=== PATIENT | male | born 1990 | race Caucasian/White ===

== ENCOUNTER → 2016-06-15 | Outpatient (REF) | payer OTHER, MEDICAID | LOC: M SFHCLERA 16:32 | PROVIDERS: ATTEND Nurse Practitioner Family | DX: R50.9 Fever, unspecified (principal) ==

== ENCOUNTER 2017-07-24 09:45 | Outpatient (RCR) | payer OTHER | END 2017-08-22 | LOC: M PT 09:45 | DX: Z51.89 Encounter for other specified aftercare (principal); M54.2 Cervicalgia ==

== ENCOUNTER 2017-08-26 08:26 | Outpatient (RCR) | payer OTHER | END 2017-09-21 | LOC: M PT 08:26 | DX: Z51.89 Encounter for other specified aftercare (principal); M54.2 Cervicalgia ==

== ENCOUNTER 2018-01-23 10:05 | Emergency (ER) | payer OTHER, MEDICAID ==
[2018-01-23] MEDS: KETOROLAC TROMETHAMINE 10 MG TAB PO (10:46)
[2018-01-23] MEDS: methylPREDNISolone INJ 125 MG/2 ML VIAL (J2930) IM (10:46)
[2018-01-23] MEDS: MORPHINE 4 MG/ML 1ML VIAL/SYRINGE (J2270) IM (10:47)
== END 2018-01-23 11:20 | disposition home or self-care (01) ==
LOC: M ED 10:05
DX: M54.5 Low back pain (principal)
CPT/HCPCS: J2270

== ENCOUNTER → 2018-07-17 | Outpatient (REF) | payer OTHER, MEDICAID ==
[~2018-07-17] MED LIST: DICL75TA; METH4PACK; PRED20TA PO; TIZA4CAP6; TOPI50TA9; VOLT1GEL15 TOP
[2018-07-17 20:02] LABS: ALBUMIN 3.7 GM/DL (3.2-5.2); ALT/SGPT 92 U/L (12-78); BILIRUBIN,TOTAL 0.4 MG/DL (0.2-1.0); BLOOD UREA NITROGEN 16 MG/DL (7-18); CALCIUM LEVEL 8.9 MG/DL (8.5-10.1); CARBON DIOXIDE LEVEL 27 MEQ/L (21-32); CHLORIDE LEVEL 111 MEQ/L (98-107); CHOLESTEROL LEVEL 192 MG/DL (<200); CHOLESTEROL RISK RATIO 5.189 (<5); CREATININE FOR GFR 0.95 MG/DL (0.70-1.30); GLOMERULAR FILTRATION RATE > 60.0 (>60); GLUCOSE, FASTING 87 MG/DL (70-100); HDL CHOLESTEROL 37 MG/DL (>40); NON-HDL-C 155 MG/DL; POTASSIUM SERUM 3.8 MEQ/L (3.5-5.1); SODIUM LEVEL 142 MEQ/L (136-145); THYROID STIMULATING HORMONE 0.019 uIU/ML (0.358-3.740); TOTAL PROTEIN 7.7 GM/DL (6.4-8.2); TRIGLYCERIDES LEVEL 125 MG/DL (<150)
[2018-07-17 20:17] LABS: HEMATOCRIT 46.1 % (42.0-52.0); HEMOGLOBIN 15.4 g/dl (13.5-17.5); MEAN CORPUSCULAR HGB CONC 33.4 g/dl (32.0-36.5); MEAN CORPUSCULAR VOLUME 92.9 fl (80.0-96.0); PLATELET COUNT, AUTOMATED 266 10^3/uL (150-450); RED BLOOD COUNT 4.96 10^6/uL (4.30-6.10); WHITE BLOOD COUNT 9.5 10^3/uL (4.0-10.0)
== END ==
LOC: M SFHCLERA 11:21
PROVIDERS: ATTEND Family Medicine
DX: I10 Essential (primary) hypertension (principal)

== ENCOUNTER → 2018-07-21 | Outpatient (REF) | payer OTHER, MEDICAID ==
[2018-07-21 18:03] LABS: ALBUMIN 3.7 GM/DL (3.2-5.2); ALT/SGPT 101 U/L (12-78); BILIRUBIN,DIRECT 0.2 MG/DL (0.0-0.2); BILIRUBIN,TOTAL 0.7 MG/DL (0.2-1.0); FERRITIN 316 NG/ML (26-388); FREE T4 1.27 NG/DL (0.76-1.46); THYROID STIMULATING HORMONE 0.011 uIU/ML (0.358-3.740); TOTAL PROTEIN 7.7 GM/DL (6.4-8.2)
[2018-07-23 11:45] LABS: HEPATITIS B CORE ANTIBODY IGM NEGATIVE (NEGATIVE)
[2018-07-23 11:48] LABS: HEPATITIS A ANTIBODY IGM NEGATIVE (NEGATIVE)
[2018-07-23 13:20] LABS: HEPATITIS B SURFACE ANTIGEN NEGATIVE (NEGATIVE)
== END ==
LOC: M SFHCLERA 11:30
PROVIDERS: ATTEND Family Medicine
DX: R79.89 Other specified abnormal findings of blood chemistry (principal); R74.8 Abnormal levels of other serum enzymes

== ENCOUNTER → 2018-07-28 | Outpatient (CLI) | payer OTHER ==
--- NOTE | 2018-07-28 08:10 | REP ---
Nickel: Elevated liver function tests. Technique: Real time albert scale ultrasound examination using curved array transducer. Findings: Liver is increased echogenicity with poor through transmission suggesting fatty infiltration/hepatocellular disease. No obvious focal hepatic lesion identified. The pancreas is incompletely evaluated due to interposed bowel gas, but visualized portions appear relatively normal. The gallbladder is unremarkable and without gallstones, wall thickening, or pericholecystic fluid. No biliary ductal dilatation is appreciated and the common bile duct measures 3.5 mm diameter. The right kidney is normal in reniform shape without hydronephrosis and measures 12.5 x 5.5 x 6.3 cm. Visualized abdominal aorta normal. No ascites. Impression: Hepatic steatosis. No focal hepatic lesions identified. Electronically Signed by Domo Cifuentes MD 07/28/2018 08:02 A
== END ==
LOC: M RAD 06:57
PROVIDERS: ATTEND Family Medicine
DX: R94.5 Abnormal results of liver function studies (principal); K76.0 Fatty (change of) liver, not elsewhere classified

== ENCOUNTER → 2018-11-25 | Outpatient (REF) | payer OTHER, MEDICAID ==
[2018-11-25 12:39] LABS: ALBUMIN 3.4 GM/DL (3.2-5.2); ALT/SGPT 84 U/L (12-78); BILIRUBIN,DIRECT < 0.1 MG/DL (0.0-0.2); BILIRUBIN,TOTAL 0.3 MG/DL (0.2-1.0); FERRITIN 287 NG/ML (26-388); IRON (FE) 78 UG/DL (65-175); PERCENT SATURATION 30.5 % (19.7-50.0); TOTAL IRON BINDING CAPACITY 256 UG/DL (250-450); TOTAL PROTEIN 7.1 GM/DL (6.4-8.2)
== END ==
LOC: M SFHCLERA 08:02
PROVIDERS: ATTEND Family Medicine
DX: R74.0 Nonspecific elevation of levels of transaminase and lactic acid dehydrogenase [LDH] (principal)

== ENCOUNTER → 2019-01-29 | Outpatient (CLI) | payer OTHER, MEDICAID ==
[2019-01-29 21:03] LABS: C REACTIVE PROTEIN QUANTITATIV 1.76 MG/DL (0.00-0.30); RHEUMATOID FACTOR QUANT < 10.0 IU/ML (<15.0); URIC ACID 6.1 MG/DL (3.5-7.2)
== END ==
LOC: M LRY 15:59
PROVIDERS: ATTEND Physician Assistant
DX: M54.5 Low back pain (principal)

== ENCOUNTER → 2019-02-16 | Outpatient (CLI) | payer OTHER ==
--- NOTE | 2019-02-16 17:23 | REP ---
Lumbar spine MRI study without contrast: History: Lower back and left leg pain. Comparison MRI study September 03, 2014. Technique: Sagittal and axial T1 and T2-weighted scans are acquired in the usual fashion with and without fat saturation. Sequences include spin echo, turbo spin-echo, and STIR imaging sequences. MRI findings: There is some straightening of the normal lumbar lordosis. Cortical and medullary bone signal intensity are normal. Vertebral body heights are preserved. Alignment is normal. There is no evidence of spondylolysis or spondylolisthesis. The tip of the conus medullaris is normal in position and appearance at L1-L2. No extra vertebral abnormality is observed. At L5-S1, there is mild diffuse disc bulging. No foraminal narrowing or central canal stenosis is seen. There is mild facet hypertrophy. These findings are unchanged. At L4-L5, there is degenerative narrowing of the disc. There is a small central focal disc protrusion at L4-5 which is much improved from the appearance of the comparison study at L4-5 on September 03, 2014. There is subtle indentation of the ventral margin of the thecal sac. The previously noted moderate sized disc protrusion is otherwise resolved. There is mild facet hypertrophy at L4-5. No foraminal stenosis is seen. At L3-4, there is degenerative disc narrowing and desiccation which is a new finding from the prior study. There is a small right paracentral focal disc protrusion at L3-4 which is new compared to the prior exam. There is mild thecal sac compression associated with this. No foraminal encroachment is seen. At L2-3 and L1-2, there is no significant disc abnormality. Impression: Small right paracentral focal disc protrusion at L3-4, new from the comparison study. Improvement noted at L4-5. The previously noted moderate-sized disc herniation is much improved. Small central focal disc protrusion at L4-5 is visible today. There are facet hypertrophy changes bilaterally at 4-5 and 5-1. Electronically Signed by Alec Phan MD 02/17/2019 10:45 A
== END ==
LOC: M RAD 12:09
PROVIDERS: ATTEND Physician Assistant
DX: M54.5 Low back pain (principal)

== ENCOUNTER → 2019-12-01 | Outpatient (REF) | payer OTHER ==
[2019-12-01 18:51] LABS: ALBUMIN 3.4 GM/DL (3.2-5.2); ALT/SGPT 99 U/L (12-78); BILIRUBIN,TOTAL 0.4 MG/DL (0.2-1.0); BLOOD UREA NITROGEN 13 MG/DL (7-18); CALCIUM LEVEL 9.2 MG/DL (8.5-10.1); CARBON DIOXIDE LEVEL 27 MEQ/L (21-32); CHLORIDE LEVEL 108 MEQ/L (98-107); CREATININE FOR GFR 0.95 MG/DL (0.70-1.30); GLOMERULAR FILTRATION RATE > 60.0 (>60); GLUCOSE, FASTING 93 MG/DL (70-100); MAGNESIUM LEVEL 2.2 MG/DL (1.8-2.4); POTASSIUM SERUM 4.1 MEQ/L (3.5-5.1); SODIUM LEVEL 140 MEQ/L (136-145); TOTAL PROTEIN 7.8 GM/DL (6.4-8.2)
== END ==
LOC: M SFHCLUC 17:50
PROVIDERS: ATTEND Nurse Practitioner Family
DX: I10 Essential (primary) hypertension (principal)

== ENCOUNTER 2020-04-06 12:54 | Emergency (ER) | payer OTHER ==
[~2020-04-06] VITALS: Ht 182.9 cm; Wt 187.9 kg
--- OUTSIDE RECORDS SUMMARY | 2020-04-06 13:02 | CCD ---
Author Organization Unknown Address [address] [place] [address] Phone [phone] Care Team Providers Care Loom Changeover Operator Name Role Phone [facility] 3 [phone] Allergies Code Code System Name Reaction Severity Status Onset NKDA Medications Name Status Start Date Stop Date baclofen 10 mg tablet Take 1 tablet twice a day by oral route as needed. Active Not available chlorhexidine gluconate 0.12 % mouthwash Active Not available cyclobenzaprine 10 mg tablet as needed Completed 01/26/2020 cyclobenzaprine 5 mg tablet Completed 01/24 diazepam 5 mg tablet Completed 02/20/2018 diclofenac 1 % topical gel apply as needed Completed 11/04/2018 diclofenac sodium 75 mg tablet,delayed release Active Not available duloxetine 30 mg capsule,delayed release Completed 11/04/2018 duloxetine 60 mg capsule,delayed release TAKE 1 CAPSULE BY MOUTH ONCE DAILY Active Not available fluticasone propionate 50 mcg/actuation nasal spray,suspension A ctive Not available gabapentin 100 mg capsule Completed 2017 ibuprofen 800 mg tablet Completed 01/26/20 20 lidocaine 4 % topical cream Completed 01/24 lisinopril 5 mg tablet TAKE 1 TABLET BY MOUTH ONCE DAILY FOR 90 DAYS Active Not available methylprednisolone 4 mg tablets in a dos e pack TAKE DIRECTED Active Not available naproxen 500 mg tablet Completed 8 naproxen 500 mg tablet,delayed release Completed 02/20/2018 prednisone 20 mg tablet Completed 02/21/20 18 tizanidine 4 mg tablet Take 1 tablet as needed by oral route. 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 [email or web address]: [address] [place] [address], [place] 08/28/2019 COVID-19 RNA (SARS-CoV-2), QL, adult nurse practitioner-PCR, Respiratory Specim en No observation recorded. [employer]: [address] [place] [address] 08/06/2019 COVID-19 RNA (SARS-CoV-2), QL, adult nurse practitioner-PCR, Respiratory Specim en No observation recorded. [employer]: [address] [place] [address] Past Encounters 03/28/2020 Degeneration of Lumbar Intervertebral Disc; Degeneration of Lumbosacral Intervertebral Disc; Displacement of Lumbar Intervertebral Disc without Myelopathy; Intervertebral Disc Disorder; Spondylosis without Myelopathy; Lumbosacral Spondylosis without Myelopathy; Lumbar Radiculopathy Sharlene Ambrocio SUPPORT SERVICES TECH: [phone] [facility] [address] [address], Ph. 02/17/2020 Degeneration of Lumbar Intervertebral Disc; Degeneration of Lumbosacral Intervertebral Disc; Displacement of Lumbar Intervertebral Disc without Myelopathy; Intervertebral Disc Disorder; Spondylosis without Myelopathy; Lumbosacral Spondylosis without Myelopathy; Lumbar Radiculopathy; Lumbosacral Radiculopathy Sharlene Ambrocio SUPPORT SERVICES TECH: [id number] [facility] 3, [facility] [place] [address], Ph. 01/26/2020 Degeneration of Lumbar Intervertebral Disc; Degeneration of Lumbosacral Intervertebral Disc; Displacement of Lumbar Intervertebral Disc without Myelopathy; Intervertebral Disc Disorder; Spondylosis without Myelopathy; Lumbosacral Spondylosis without Myelopathy; Lumbar Radiculopathy Sharlene Ambrocio SUPPORT SERVICES TECH: [id number] [facility] 3, [facility] [place] [address], Ph. 12/29/2019 Degeneration of Lumbar Intervertebral Disc; Degeneration of Lumbosacral Intervertebral Disc; Displacement of Lumbar Intervertebral Disc without Myelopathy; Intervertebral Disc Disorder; Spondylosis without Myelopathy; Lumbosacral Spondylosis without Myelopathy; Lumbar Radiculopathy Sharlene Ambrocio, SUPPORT SERVICES TECH: [phone] [address], Ph. 11/26/2019 Degeneration of Lumbar Intervertebral Disc; Degeneration of Lumbosacral Intervertebral Disc; Displacement of Lumbar Intervertebral Disc without Myelopathy; Intervertebral Disc Disorder; Spondylosis without Myelopathy; Lumbosacral Spondylosis without Myelopathy; Lumbar Radiculopathy Sharlene Ambrocio, SUPPORT SERVICES TECH: [address] [address], Ph. 11/12/2019 Lumbar Radiculopathy; Degeneration of Lumbar Intervertebral Disc; Degeneration of Lumbosacral Intervertebral Disc; Displacement of Lumbar Intervertebral Disc without Myelopathy; Intervertebral Disc Disorder; Spondylosis without Myelopathy; Lumbosacral Spondylosis without Myelopathy Tyrone Beach MD: [address] [address], Ph. 11/09/2019 Pre-surgery Testing; Viral Screening Tyrone Beach MD: [address] [address], Ph. [phone] 11/02/2019 Degeneration of Lumbar Intervertebral Disc; Degeneration of Lumbosacral Intervertebral Disc; Displacement of Lumbar Intervertebral Disc without Myelopathy; Intervertebral Disc Disorder; Spondylosis without Myelopathy; Lumbosacral Spondylosis without Myelopathy; Lumbar Radiculopathy Sharlene Ambrocio, SUPPORT SERVICES TECH: [address] [address], Ph. 09/21/2019 Degeneration of Lumbar Intervertebral Disc; Degeneration of Lumbosacral Intervertebral Disc; Displacement of Lumbar Intervertebral Disc without Myelopathy; Intervertebral Disc Disorder; Spondylosis without Myelopathy; Lumbosacral Spondylosis without Myelopathy; Lumbar Radiculopathy Sharlene Ambrocio, SUPPORT SERVICES TECH: [address] [address], [facility] [place] [address], Ph. 08/31/2019 Lumbar Radiculopathy; Degeneration of Lumbar Intervertebral Disc; Degeneration of Lumbosacral Intervertebral Disc; Displacement of Lumbar Intervertebral Disc without Myelopathy; Intervertebral Disc Disorder; Spondylosis without Myelopathy; Lumbosacral Spondylosis without Myelopathy; Lumbosacral Radiculopathy Tyrone Beach MD: [address] [address], [facility] [place] [address], Ph. 08/28/2019 Pre-surgery Testing Tyrone Beach MD: [address] [address], [facility] [place] [address], Ph. [phone] 08/10/2019 Lumbar Radiculopathy; Degeneration of Lumbar Intervertebral Disc; Degeneration of Lumbosacral Intervertebral Disc; Displacement of Lumbar Intervertebral Disc without Myelopathy; Intervertebral Disc Disorder; Spondylosis without Myelopathy; Lumbosacral Spondylosis without Myelopathy; Lumbosacral Radiculopathy Tyrone Beach MD: [address] [address], [place] [address], Ph. 08/06/2019 Pre-surgery Testing Tyrone Beach MD: [address] [address], [facility] [place] [address], Ph. 08/05/2019 Degeneration of Lumbar Intervertebral Disc; Degeneration of Lumbosacral Intervertebral Disc; Displacement of Lumbar Intervertebral Disc without Myelopathy; Intervertebral Disc Disorder; Spondylosis without Myelopathy; Lumbosacral Spondylosis without Myelopathy; Lumbar Radiculopathy; Lumbosacral Radiculopathy Sharlene Paulo Cristóbal, SUPPORT SERVICES TECH: [address] [facility] 3, [facility] [place] [address], Ph. 07/14/2019 Degeneration of Lumbar Intervertebral Disc; Degeneration of Lumbosacral Intervertebral Disc; Displacement of Lumbar Intervertebral Disc without Myelopathy; Intervertebral Disc Disorder; Spondylosis without Myelopathy; Lumbosacral Spondylosis without Myelopathy; Lumbar Radiculopathy Sharlene Ambrocio SUPPORT SERVICES TECH: [address] [address], Ph. 05/21/2019 Lumbar Radiculopathy; Degeneration of Lumbar Intervertebral Disc; Degeneration of Lumbosacral Intervertebral Disc; Displacement of Lumbar Intervertebral Disc without Myelopathy; Intervertebral Disc Disorder; Spondylosis without Myelopathy; Lumbosacral Spondylosis without Myelopathy; Lumbosacral Radiculopathy Tyrone Beach MD: [address] [address], Ph. 04/29/2019 Degeneration of Lumbar Intervertebral Disc; Degeneration of Lumbosacral Intervertebral Disc; Displacement of Lumbar Intervertebral Disc without Myelopathy; Intervertebral Disc Disorder; Spondylosis without Myelopathy; Lumbosacral Spondylosis without Myelopathy; Lumbar Radiculopathy Sharlene Ambrocio SUPPORT SERVICES TECH: [address] [address], Ph. 03/20/2019 Degeneration of Lumbar Intervertebral Disc; Degeneration of Lumbosacral Intervertebral Disc; Displacement of Lumbar Intervertebral Disc without Myelopathy; Intervertebral Disc Disorder; Spondylosis without Myelopathy; Lumbosacral Spondylosis without Myelopathy; Lumbar Radiculopathy Sharlene Ambrocio SUPPORT SERVICES TECH: [address] [address], Ph. 02/10/2019 Degeneration of Lumbar Intervertebral Disc; Degeneration of Lumbosacral Intervertebral Disc; Displacement of Lumbar Intervertebral Disc without Myelopathy; Intervertebral Disc Disorder; Spondylosis without Myelopathy; Lumbosacral Spondylosis without Myelopathy; Lumbar Radiculopathy Sharlene Ambrocio SUPPORT SERVICES TECH: [address] [address], [place] [address], Ph. 01/21/2019 Lumbar Radiculopathy; Degeneration of Lumbar Intervertebral Disc; Degeneration of Lumbosacral Intervertebral Disc; Displacement of Lumbar Intervertebral Disc without Myelopathy; Intervertebral Disc Disorder; Spondylosis without Myelopathy; Lumbosacral Spondylosis without Myelopathy Tyrone Beach MD: [address] [address], Ph. 12/31/2018 Lumbar Radiculopathy; Degeneration of Lumbar Intervertebral Disc; Degeneration of Lumbosacral Intervertebral Disc; Displacement of Lumbar Intervertebral Disc without Myelopathy; Intervertebral Disc Disorder; Spondylosis without Myelopathy; Lumbosacral Spondylosis without Myelopathy Tyrone Beach MD: [address] [address], Ph. 11/04/2018 Degeneration of Lumbar Intervertebral Disc; Degeneration of Lumbosacral Intervertebral Disc; Displacement of Lumbar Intervertebral Disc without Myelopathy; Intervertebral Disc Disorder; Spondylosis without Myelopathy; Lumbosacral Spondylosis without Myelopathy; Lumbar Radiculopathy Sharlene Ambrocio SUPPORT SERVICES TECH: [address] [address], Ph. 09/23/2018 Degeneration of Lumbar Intervertebral Disc; Degeneration of Lumbosacral Intervertebral Disc; Displacement of Lumbar Intervertebral Disc without Myelopathy; Intervertebral Disc Disorder; Spondylosis without Myelopathy; Lumbosacral Spondylosis without Myelopathy; Lumbar Radiculopathy Sharlene Ambrocio SUPPORT SERVICES TECH: [address] [address], Ph. 08/20/2018 Degeneration of Lumbar Intervertebral Disc; Degeneration of Lumbosacral Intervertebral Disc; Displacement of Lumbar Intervertebral Disc without Myelopathy; Intervertebral Disc Disorder; Spondylosis without Myelopathy; Lumbosacral Spondylosis without Myelopathy; Lumbar Radiculopathy Tyrone Beach MD: [address] [address], Ph. 07/04/2018 Degeneration of Lumbar Intervertebral Disc; Degeneration of Lumbosacral Intervertebral Disc; Displacement of Lumbar Intervertebral Disc without Myelopathy; Intervertebral Disc Disorder; Spondylosis without Myelopathy; Lumbosacral Spondylosis without Myelopathy; Lumbar Radiculopathy Sharlene Ambrocio, SUPPORT SERVICES TECH: [address] [address], Ph. 05/23/2018 Degeneration of Lumbar Intervertebral Disc; Degeneration of Lumbosacral Intervertebral Disc; Displacement of Lumbar Intervertebral Disc without Myelopathy; Intervertebral Disc Disorder; Spondylosis without Myelopathy; Lumbosacral Spondylosis without Myelopathy; Lumbar Radiculopathy Sharlene Ambrocio, SUPPORT SERVICES TECH: [address] [address], Ph. 04/09/2018 Degeneration of Lumbar Intervertebral Disc; Degeneration of Lumbosacral Intervertebral Disc; Displacement of Lumbar Intervertebral Disc without Myelopathy; Intervertebral Disc Disorder; Spondylosis without Myelopathy; Lumbosacral Spondylosis without Myelopathy; Lumbar Radiculopathy Tyrone Beach MD: [address] [address], Ph. 03/13/2018 Degeneration of Lumbar Intervertebral Disc; Degeneration of Lumbosacral Intervertebral Disc; Displacement of Lumbar Intervertebral Disc without Myelopathy; Intervertebral Disc Disorder; Spondylosis without Myelopathy; Lumbosacral Spondylosis without Myelopathy; Lumbar Radiculopathy Sharlene Ambrocio, SUPPORT SERVICES TECH: [address] [address], Ph. 02/20/2018 Degeneration of Lumbar Intervertebral Disc; Degeneration of Lumbosacral Intervertebral Disc; Displacement of Lumbar Intervertebral Disc without Myelopathy; Intervertebral Disc Disorder; Spondylosis without Myelopathy; Lumbosacral Spondylosis without Myelopathy; Lumbar Radiculopathy Tyrone Beach MD: [address] [address], Ph. Social History Tobacco Smoking Status Never Smoker Vaccine List None recorded. Plan of Care Reminders Provider Appointments None recorded. Lab None recorded. Referral None recorded. Procedures None recorded. Surgeries None recorded. Imaging None recorded. Vitals 09/21/2019 09:00AM Telehealth Height 6 ft 08/10/2019 08:00AM Lumbar epidural steroid inject Height 6 ft 04/29/2019 01:00PM FOLLOW-UP Height Blood Pressure 6 ft 126/81 mm[Hg] 03/20/2019 11:30AM FOLLOW-UP Height Blood Pressure 6 ft 140/90 mm[Hg] 02/10/2019 10:15AM FOLLOW-UP Height Weight BMI Blood Pressure 6 ft 392 lbs 53.2 kg/m2 150/73 mm[Hg] 11/04/2018 09:15AM FOLLOW-UP Height Weight BMI Blood Pressure 6 ft 392 lbs 53.2 kg/m2 146/92 mm[Hg] 09/23/2018 11:00AM FOLLOW-UP Height Blood Pressure 6 ft 143/91 mm[Hg] 07/04/2018 08:00AM FOLLOW-UP Height Blood Pressure 6 ft 141/80 mm[Hg] 05/23/2018 10:30AM FOLLOW-UP Height Blood Pressure 6 ft 132/89 mm[Hg] 03/13/2018 08:00AM FOLLOW-UP Height Blood Pressure 6 ft 155/92 mm[Hg] 01/30/2018 Blood Pressure 145/81 mm[Hg] 01/15/2018 Blood Pressure 151/87 mm[Hg] 11/14/2017 Blood Pressure 137/81 mm[Hg] 10/03/2017 Weight BMI Blood Pressure 402.2 lbs 54.75 kg/m2 156/86 mm[Hg] 09/05/2017 Blood Pressure 149/86 mm[Hg] 08/16/2017 Blood Pressure 174/84 mm[Hg] 07/30/2017 Height Weight BMI Blood Pressure 6 ft 413 lbs 56.22 kg/m2 152/90 mm[Hg]
--- OUTSIDE RECORDS SUMMARY | 2020-04-06 13:02 | CCD ---
Author Author [facility] Organization [employer] Address Unknown Phone Unavailable Care Team Providers Care Head Waiter/Waitress Name Role Phone Tabitha Berrios Unavailable PROBLEMS Type Condition ICD9-CM Code [id number] Code Onset Dates Condition S tatus SNOMED Code Notes Problem BMI 45.0-49.9, adult Z68.42 Active 707304969 Problem Lumbar strain, subsequent encounter S39.012D Act devan 433295656 Problem Cough R05 Active 50165246 Problem Bilateral low back pain with left-sided sciatica M 54.42 Active 648193891 Problem URI (upper respiratory infection) J06.9 Active 49989706 Problem Bronchitis J40 Active 84953801 Problem Uncomplicated asthma, unspecified asthma severity J45.909 Active 294469036 Problem Sore throat J02.9 Active 322346428 Problem Acute left-sided low back pain with left-sided sciatica M54.42 Active 999704400 Problem Protruded lumbar disc M51.26 Active 370663582 Problem Influenza vaccination declined Z28.21 Active 3 78308730 Problem Dysthymic disorder F34.1 Active 91528083 Problem Obesity, morbid, BMI 50 or higher E66.01 Active 517535563 Problem Seasonal allergic rhinitis due to other allergic trigger J30.89 Active 735158129 Problem Morbid obesity E66.01 Active 663939159 Problem Lumbago with sciatica, unspecified side M54.40 Active 088739489 Problem Other chronic pain G89.29 Active 39890234 Problem Essential hypertension I10 Active 28287499 Problem Hepatic steatosis K76.0 Active 959359852 ALLERGIES No Known Allergies ENCOUNTERS from 1988 to 2020-03-15 Encounter Location Date Provider Diagnosis [facility] [address] [place] [address] Jan, Tabitha Berrios Bilateral low back pain with left-sided sciatica M54.42 IMMUNIZATIONS Vaccine Route Administration Date Status Influenza (6mo & up) Fluzone IM Intramuscular Feb 11, 2018 Ad ministered Influenza (6mo & up) Fluzone Unknown May 09, 2017 Oth ers SOCIAL HISTORY Tobacco Use: Social History Observation Description Date Details (start date - stop date) Never Smoker Sex Assigned At : Social History Observation Description Sex Assigned At Unknown Education: Question Answer Notes Level of Education: High School Audit Question Answer Notes Total Score: 2 Interpretation: Alcohol Education Language: Question Answer Notes Languages spoken: Lao Christianity: Question Answer Notes Christianity 33 None Sexual Hx: Question Answer Notes Had sex in the last 12 months (vaginal, oral, or anal)? No Have you ever had an STD? No Drug and Alcohol Question Answer Notes Total Score: 0 Interpretation: No problems reported Alcohol Screening: Question Answer Notes Did you have a drink containing alcohol in the past year? No Points 0 Interpretation Negative BMI Care Goal Follow-Up Question Answer Notes Above Normal BMI Follow-Up Dietary management educatio n, guidance, and counseling Tobacco Use: Question Answer Notes Are you a: never smoker REASON FOR REFERRAL No Information VITAL SIGNS No information MEDICATIONS Medication SIG (Take, Route, Frequency, Duration) Notes Start Da te End Date Status Cyclobenzaprine HCl 10 MG 1 tablet as needed Orally Th ree times a day (MDD=30mg) for 30 Days Mar, Active Gabapentin 100 MG 1 capsule Orally tid for 30 day(s) Not-Taking Flonase Allergy Relief 50 MCG/ACT 1 spray in each nost ril Nasally Once a day for 30 day(s) Dec, Active Lidocaine 4 % 1 application to affected ar ea as needed Externally Three times a day for 10 day(s) Dec, Not-Taking Triamcinolone Acetonide 0.1 % 1 application to affecte d area Externally Twice a day for 7 days Apr, Not-Taking Flexeril 5 MG 1 tablet as needed Orally Th ree times a day prn muscle spasm for 30 day(s) July, Not-Taking Ventolin HFA 108 (90 Base) MCG/ACT 2 puffs as needed Inhalation db ry 4 hrs Active Lisinopril 5 MG 1 tablet Orally Once a day for 90 day(s) 2 5 Jun, 2018 Active Lidoderm 5 % 1 patch to intact skin remov e after 12 hours Externally Once a day on for 12 hours, off for 12 hours for 10 day(s) Dec, Not-Taking Duloxetine HCl 60 MG 1 capsule Orally Once a day Active Diclofenac Sodium 75 MG 1 tablet with food or milk O rally Twice a day for 30 Days Active Topiramate 50 MG 1 tab Orally-MJumalon bid Active PROCEDURES No Information RESULTS No Results REASON FOR VISIT diclofenac MEDICAL (GENERAL) HISTORY Type Description Date Medical History Obesity, morbid, BMI 40.0-49.9 Medical History Low back pain radiating to left leg Medical History Strain of lumbar region Medical History Uncomplicated asthma, unspecified asthma severity Surgical History No Surgical history information Hospitalization History r[facility] - [facility] 1 yrs old Goals Section No Information Health Concerns No Information MEDICAL EQUIPMENT No Information MENTAL STATUS No Information FUNCTIONAL STATUS No Information ASSESSMENTS Encounter Date Diagnosis Assessment Notes Treatment Notes Treatm ent Clinical Notes Jan, Bilateral low back pain with left-sided sciatica (ICD-10 - M54.42) PLAN OF TREATMENT Medication Medication Name Sig Start Date Stop Date Lisinopril 5 MG 1 tablet Orally Once a day for 90 day(s) Jun, Cyclobenzaprine HCl 10 MG 1 tablet as needed Orally Th ree times a day (MDD=30mg) for 30 Days Mar, Flonase Allergy Relief 50 MCG/ACT 1 spray in each nost ril Nasally Once a day for 30 day(s) Dec, Diclofenac Sodium 75 MG 1 tablet with food or milk O rally Twice a day for 30 Days Insurance Providers Payer Name Payer Address Payer Phone Insured Name Patient Relati onship to Insured Coverage Start Date Coverage End Date [facility] CLAIM[facility] DEPT [address] [facility] [phone] [facility] [employer] [address] [facility] [id number] [place]
--- OUTSIDE RECORDS SUMMARY | 2020-04-06 13:02 | CCD ---
Author Author [employer] [facility] Organization [employer] Address Unknown Phone Unavailable Care Team Providers Care Mill Operator Head Name Role Phone Tabitha Berrios Unavailable PROBLEMS Type Condition ICD9-CM Code JNU94-RE Code Onset Dates Condition S tatus SNOMED Code Notes Problem BMI 45.0-49.9, adult Z68.42 Active 088164196 Problem Lumbar strain, subsequent encounter S39.012D Act devan 592746301 Problem Cough R05 Active 32534302 Problem Bilateral low back pain with left-sided sciatica M 54.42 Active 309683725 Problem URI (upper respiratory infection) J06.9 Active 57437708 Problem Bronchitis J40 Active 53640886 Problem Uncomplicated asthma, unspecified asthma severity J45.909 Active 546582757 Problem Sore throat J02.9 Active 524806215 Problem Acute left-sided low back pain with left-sided sciatica M54.42 Active 380642482 Problem Protruded lumbar disc M51.26 Active 288983397 Problem Influenza vaccination declined Z28.21 Active 3 66673425 Problem Dysthymic disorder F34.1 Active 90754997 Problem Obesity, morbid, BMI 50 or higher E66.01 Active 477593255 Problem Seasonal allergic rhinitis due to other allergic trigger J30.89 Active 647655719 Problem Morbid obesity E66.01 Active 318157811 Problem Lumbago with sciatica, unspecified side M54.40 Active 508085574 Problem Other chronic pain G89.29 Active 61514130 Problem Essential hypertension I10 Active 11066279 Problem Hepatic steatosis K76.0 Active 812430767 ALLERGIES No Known Allergies ENCOUNTERS from 1988 to 2020-01-11 Encounter Location Date Provider Diagnosis [facility] [address] [place] [address] Dec, 2019 Tabitha Berrios Essential hypertension I10 IMMUNIZATIONS Vaccine Route Administration Date Status Influenza [...] Education Language: Question Answer Notes Languages spoken: Slovenian Mosque: Question Answer Notes Mosque 33 None Sexual Hx: Question Answer Notes [...] MEDICATIONS Medication SIG (Take, Route, Frequency, Duration) Start Date En d Date Status Cyclobenzaprine HCl 10 MG 1 [...] a day for 10 day(s) Dec, Not-Taking Diclofenac Sodium 75 MG 1 tablet with food or milk O rally Twice a day for 90 day(s) Active Triamcinolone Acetonide 0.1 % 1 application to affecte d area Externally Twice a day for 7 days Apr, Not-Taking Ventolin HFA 108 (90 Base) MCG/ACT 2 puffs as needed Inhalation db ry 4 hrs Active Lisinopril 5 MG 1 tablet Orally Once a day for 90 day(s) Jun, 19 Active Lidoderm 5 % 1 patch to intact skin remov e after 12 hours Externally Once a day on for 12 hours, off for 12 hours for 10 day(s) Dec, Not-Taking Duloxetine HCl 60 MG 1 capsule Orally Once a day Active Flexeril 5 MG 1 tablet as needed Orally Th ree times a day prn muscle spasm for 30 day(s) July, Not-Taking Topiramate 50 MG 1 tab Orally-MJumalon bid Active PROCEDURES No Information RESULTS No Results REASON FOR VISIT refill MEDICAL (GENERAL) HISTORY Type Description Date Medical History Obesity, morbid, BMI 40.0-49.9 Medical History Low back pain radiating to left leg Medical History Strain of lumbar region Medical History Uncomplicated asthma, unspecified asthma severity Surgical History No Surgical history information Hospitalization History [facility] 1 yrs old Goals Section No Information Health Concerns No Information MEDICAL EQUIPMENT No Information MENTAL STATUS No Information FUNCTIONAL STATUS No Information ASSESSMENTS Encounter Date Diagnosis Notes Dec, Essential hypertension (ICD-10 - I10) PLAN OF TREATMENT Medication Medication Name Sig [...] milk O rally Twice a day for 90 day(s) Insurance Providers Payer Name Payer Address Payer Phone Insured Name Patient Relati onship to Insured Coverage Start Date Coverage End Date MEDICAID [facility] [address] [facility] [id number] [employer] DEPT [address] [facility] [phone] GITA ANGELO
--- OUTSIDE RECORDS SUMMARY | 2020-04-06 13:02 | CCD ---
Author Organization Unknown Address [address] [place] [address] Phone [phone] Care Team Providers Care Senior Systems Software Engineer Name Role Phone [facility] 3 [phone] Allergies Code Code System Name Reaction Severity Status Onset NKDA Medications Name Status Start Date Stop Date baclofen 10 mg tablet Active Not availa ble chlorhexidine gluconate 0.12 % mouthwash Active Not available cyclobenzaprine 10 mg tablet as needed Completed 01/26/2020 cyclobenzaprine 5 mg tablet Completed 01/24 diazepam 5 mg tablet Completed 02/20/2018 diclofenac 1 % topical gel apply as needed Completed 11/04/2018 diclofenac sodium 75 mg tablet,delayed release Active Not available duloxetine 30 mg capsule,delayed release Completed 11/04/2018 duloxetine 60 mg capsule,delayed release Take 1 capsule every day by oral route. Active Not available fluticasone propionate 50 mcg/actuation nasal spray,suspension A ctive Not available gabapentin 100 mg capsule Completed 2017 ibuprofen 800 mg tablet Completed 01/26/20 20 lidocaine 4 % topical cream Completed 01/24 lisinopril 5 mg tablet Active Not avail able methylprednisolone 4 mg tablets in a dose pack Completed 09/21/2019 naproxen 500 mg tablet Completed 8 naproxen 500 mg tablet,delayed release Completed 02/20/2018 prednisone 20 mg tablet Completed 02/21/20 18 tizanidine 4 mg tablet Take 1 tablet as needed by oral route. Completed 07/04/2018 topiramate 25 mg tablet Completed 02/21/20 18 topiramate 50 mg tablet Take 1 tablet twice a day by oral route. Active Not available triamcinolone acetonide 0.1 % topical ointment Completed [...] Status Address 11/09/2019 COVID-19 RNA (SARS-CoV-2), QL, academic computing director-PCR, Respiratory Specim en No observation recorded. [employer]: [address] [place] [address] 08/28/2019 COVID-19 RNA (SARS-CoV-2), QL, academic computing director-PCR, Respiratory Specim en No observation recorded. [employer]: [address] [place] [address] 08/06/2019 COVID-19 RNA (SARS-CoV-2), QL, academic computing director-PCR, Respiratory Specim en No observation recorded. [employer]: [address] [place] [address] Past Encounters 02/17/2020 Degeneration of Lumbar Intervertebral Disc; Degeneration of Lumbosacral Intervertebral Disc; Displacement of Lumbar Intervertebral Disc without Myelopathy; Intervertebral Disc Disorder; Spondylosis without Myelopathy; Lumbosacral Spondylosis without Myelopathy; Lumbar Radiculopathy; Lumbosacral Radiculopathy Sharlene Ambrocio [employer]IBLE [employer] TESTER: [address] [address], Ph. 01/26/2020 Degeneration of Lumbar Intervertebral Disc; Degeneration of Lumbosacral Intervertebral Disc; Displacement of Lumbar Intervertebral Disc without Myelopathy; Intervertebral Disc Disorder; Spondylosis without Myelopathy; Lumbosacral Spondylosis without Myelopathy; Lumbar Radiculopathy Sharlene Ambrocio CONVERTIBLE [employer]ING TESTER: [address] [facility], [facility] [place] [address], Ph. 12/29/2019 Degeneration of Lumbar Intervertebral Disc; Degeneration of Lumbosacral Intervertebral Disc; Displacement of Lumbar Intervertebral Disc without Myelopathy; Intervertebral Disc Disorder; Spondylosis without Myelopathy; Lumbosacral Spondylosis without Myelopathy; Lumbar Radiculopathy Sharlene Ambrocio CONVERTIBLE [employer] TESTER: [address] [facility] [address] [address], Ph. 11/26/2019 Degeneration of Lumbar Intervertebral Disc; Degeneration of Lumbosacral Intervertebral Disc; Displacement of Lumbar Intervertebral Disc without Myelopathy; Intervertebral Disc Disorder; Spondylosis without Myelopathy; Lumbosacral Spondylosis without Myelopathy; Lumbar Radiculopathy Sharlene Ambrocio, CON[employer]IBLE [employer] TESTER: [address] [address], Ph. 11/12/2019 Lumbar Radiculopathy; Degeneration of Lumbar Intervertebral Disc; Degeneration of Lumbosacral Intervertebral Disc; Displacement of Lumbar Intervertebral Disc without Myelopathy; Intervertebral Disc Disorder; Spondylosis without Myelopathy; Lumbosacral Spondylosis without Myelopathy Tyrone Beach MD: [address] [address], Ph. 11/09/2019 Pre-surgery Testing; Viral Screening Tyrone Beach MD: [address] [address], Ph. [phone] 11/02/2019 Degeneration of Lumbar Intervertebral Disc; Degeneration of Lumbosacral Intervertebral Disc; Displacement of Lumbar Intervertebral Disc without Myelopathy; Intervertebral Disc Disorder; Spondylosis without Myelopathy; Lumbosacral Spondylosis without Myelopathy; Lumbar Radiculopathy Sharlene Ambrocio, CON[employer]IBLE [employer] TESTER: [address] [place] [address], Ph. 09/21/2019 Degeneration of Lumbar Intervertebral Disc; Degeneration of Lumbosacral Intervertebral Disc; Displacement of Lumbar Intervertebral Disc without Myelopathy; Intervertebral Disc Disorder; Spondylosis without Myelopathy; Lumbosacral Spondylosis without Myelopathy; Lumbar Radiculopathy Sharlene Ambrocio, CON[employer]IBLE [employer] TESTER: [address] [address], Ph. 08/31/2019 Lumbar Radiculopathy; Degeneration of Lumbar Intervertebral Disc; Degeneration of Lumbosacral Intervertebral Disc; Displacement of Lumbar Intervertebral Disc without Myelopathy; Intervertebral Disc Disorder; Spondylosis without Myelopathy; Lumbosacral Spondylosis without Myelopathy; Lumbosacral Radiculopathy Tyrone Beach MD: [address] [address], [place] [address], Ph. 08/28/2019 Pre-surgery Testing Tyrone Beach MD: [address] [address], [place] [address], Ph. [phone] 08/10/2019 Lumbar Radiculopathy; Degeneration of Lumbar Intervertebral Disc; Degeneration of Lumbosacral Intervertebral Disc; Displacement of Lumbar Intervertebral Disc without Myelopathy; Intervertebral Disc Disorder; Spondylosis without Myelopathy; Lumbosacral Spondylosis without Myelopathy; Lumbosacral Radiculopathy Tyrone Beach MD: [address] [address], [place] [address], Ph. 08/06/2019 Pre-surgery Testing Tyrone Beach MD: [address] [address], [place] [address], Ph. 08/05/2019 Degeneration of Lumbar Intervertebral Disc; Degeneration of Lumbosacral Intervertebral Disc; Displacement of Lumbar Intervertebral Disc without Myelopathy; Intervertebral Disc Disorder; Spondylosis without Myelopathy; Lumbosacral Spondylosis without Myelopathy; Lumbar Radiculopathy; Lumbosacral Radiculopathy Sharlene Ambrocio, CONVERTIBLE [employer] TESTER: [address] [address], Ph. 07/14/2019 Degeneration of Lumbar Intervertebral Disc; Degeneration of Lumbosacral Intervertebral Disc; Displacement of Lumbar Intervertebral Disc without Myelopathy; Intervertebral Disc Disorder; Spondylosis without Myelopathy; Lumbosacral Spondylosis without Myelopathy; Lumbar Radiculopathy Sharlene Ambrocio, CONVERTIBLE [employer] TESTER: [address] [address], Ph. 05/21/2019 Lumbar Radiculopathy; Degeneration of Lumbar Intervertebral Disc; Degeneration of Lumbosacral Intervertebral Disc; Displacement of Lumbar Intervertebral Disc without Myelopathy; Intervertebral Disc Disorder; Spondylosis without Myelopathy; Lumbosacral Spondylosis without Myelopathy; Lumbosacral Radiculopathy Tyrone Beach MD: [address] [address], Ph. 04/29/2019 Degeneration of Lumbar Intervertebral Disc; Degeneration of Lumbosacral Intervertebral Disc; Displacement of Lumbar Intervertebral Disc without Myelopathy; Intervertebral Disc Disorder; Spondylosis without Myelopathy; Lumbosacral Spondylosis without Myelopathy; Lumbar Radiculopathy Sharlene Ambrocio, CONVERTIBLE [employer] TESTER: [address] [address], Ph. 03/20/2019 Degeneration of Lumbar Intervertebral Disc; Degeneration of Lumbosacral Intervertebral Disc; Displacement of Lumbar Intervertebral Disc without Myelopathy; Intervertebral Disc Disorder; Spondylosis without Myelopathy; Lumbosacral Spondylosis without Myelopathy; Lumbar Radiculopathy Sharlene Ambrocio CONVERTIBLE [employer] TESTER: [address] [address], Ph. 02/10/2019 Degeneration of Lumbar Intervertebral Disc; Degeneration of Lumbosacral Intervertebral Disc; Displacement of Lumbar Intervertebral Disc without Myelopathy; Intervertebral Disc Disorder; Spondylosis without Myelopathy; Lumbosacral Spondylosis without Myelopathy; Lumbar Radiculopathy Sharlene Ambrocio CONVERTIBLE [employer] TESTER: [address] [address], Ph. 01/21/2019 Lumbar Radiculopathy; Degeneration of Lumbar Intervertebral Disc; Degeneration of Lumbosacral Intervertebral Disc; Displacement of Lumbar Intervertebral Disc without Myelopathy; Intervertebral Disc Disorder; Spondylosis without Myelopathy; Lumbosacral Spondylosis without Myelopathy Tyrone Beach MD: [address] [address], Ph. 12/31/2018 Lumbar Radiculopathy; Degeneration of Lumbar Intervertebral Disc; Degeneration of Lumbosacral Intervertebral Disc; Displacement of Lumbar Intervertebral Disc without Myelopathy; Intervertebral Disc Disorder; Spondylosis without Myelopathy; Lumbosacral Spondylosis without Myelopathy Tyrone Beach MD: [address] [address], [place] [address], Ph. 11/04/2018 Degeneration of Lumbar Intervertebral Disc; Degeneration of Lumbosacral Intervertebral Disc; Displacement of Lumbar Intervertebral Disc without Myelopathy; Intervertebral Disc Disorder; Spondylosis without Myelopathy; Lumbosacral Spondylosis without Myelopathy; Lumbar Radiculopathy Sharlene Ambrocio CONVERTIBLE [employer] TESTER: [address] [address], [facility] [place] [address], Ph. 09/23/2018 Degeneration of Lumbar Intervertebral Disc; Degeneration of Lumbosacral Intervertebral Disc; Displacement of Lumbar Intervertebral Disc without Myelopathy; Intervertebral Disc Disorder; Spondylosis without Myelopathy; Lumbosacral Spondylosis without Myelopathy; Lumbar Radiculopathy Sharlene Ambrocio CONVERTIBLE [employer] TESTER: [address] [address], Ph. 08/20/2018 Degeneration of Lumbar Intervertebral Disc; Degeneration of Lumbosacral Intervertebral Disc; Displacement of Lumbar Intervertebral Disc without Myelopathy; Intervertebral Disc Disorder; Spondylosis without Myelopathy; Lumbosacral Spondylosis without Myelopathy; Lumbar Radiculopathy Tyrone Beach MD: [address] [address], Ph. 07/04/2018 Degeneration of Lumbar Intervertebral Disc; Degeneration of Lumbosacral Intervertebral Disc; Displacement of Lumbar Intervertebral Disc without Myelopathy; Intervertebral Disc Disorder; Spondylosis without Myelopathy; Lumbosacral Spondylosis without Myelopathy; Lumbar Radiculopathy Sharlene Ambrocio, CONVERTIBLE [employer] TESTER: [address] [address], Ph. 05/23/2018 Degeneration of Lumbar Intervertebral Disc; Degeneration of Lumbosacral Intervertebral Disc; Displacement of Lumbar Intervertebral Disc without Myelopathy; Intervertebral Disc Disorder; Spondylosis without Myelopathy; Lumbosacral Spondylosis without Myelopathy; Lumbar Radiculopathy Sharlene Ambrocio NP: [address] [address], [place] [address], Ph. 04/09/2018 Degeneration of Lumbar Intervertebral Disc; Degeneration of Lumbosacral Intervertebral Disc; Displacement of Lumbar Intervertebral Disc without Myelopathy; Intervertebral Disc Disorder; Spondylosis without Myelopathy; Lumbosacral Spondylosis without Myelopathy; Lumbar Radiculopathy Tyrone Beach MD: [address] [address], Ph. 03/13/2018 Degeneration of Lumbar Intervertebral Disc; Degeneration of Lumbosacral Intervertebral Disc; Displacement of Lumbar Intervertebral Disc without Myelopathy; Intervertebral Disc Disorder; Spondylosis without Myelopathy; Lumbosacral Spondylosis without Myelopathy; Lumbar Radiculopathy Sharlene Cottrellyesi, CONVERTIBLE [employer] TESTER: [address] [address], Ph. 02/20/2018 Degeneration of Lumbar Intervertebral Disc; Degeneration of Lumbosacral Intervertebral Disc; Displacement of Lumbar Intervertebral Disc without Myelopathy; Intervertebral Disc Disorder; Spondylosis without Myelopathy; Lumbosacral Spondylosis without Myelopathy; Lumbar Radiculopathy Tyrone Beach MD: [address] [address], [place] [address], Ph. Social History Tobacco Smoking Status Never [...]
--- OUTSIDE RECORDS SUMMARY | 2020-04-06 13:02 | CCD ---
Author Organization Unknown Address [address] [place] [id number] Phone [phone] Care Team Providers Care Business Services Analyst Name Role Phone [facility] 3 [phone] Allergies Code Code System Name Reaction Severity [...] Status Address 11/09/2019 COVID-19 RNA (SARS-CoV-2), QL, outside sales consultant-PCR, Respiratory Specim en No observation recorded. [employer] [facility]: [address] [place] [address], [place] 08/28/2019 COVID-19 RNA (SARS-CoV-2), QL, outside sales consultant-PCR, Respiratory Specim en No observation recorded. [email or web address]: [address] [place] [address] 08/06/2019 COVID-19 RNA (SARS-CoV-2), QL, outside sales consultant-PCR, Respiratory Specim en No observation recorded. [email or web address]: [address] [place] [address] Past Encounters 01/26/2020 Degeneration of Lumbar Intervertebral Disc; Degeneration of Lumbosacral Intervertebral Disc; Displacement of Lumbar Intervertebral Disc without Myelopathy; Intervertebral Disc Disorder; Spondylosis without Myelopathy; Lumbosacral Spondylosis without Myelopathy; Lumbar Radiculopathy Sharlene Ambrocio HARD HAT DIVER: [id number] [address], Ph. 12/29/2019 Degeneration of Lumbar Intervertebral Disc; Degeneration of Lumbosacral Intervertebral Disc; Displacement of Lumbar Intervertebral Disc without Myelopathy; Intervertebral Disc Disorder; Spondylosis without Myelopathy; Lumbosacral Spondylosis without Myelopathy; Lumbar Radiculopathy Sharlene Ambrocio HARD HAT DIVER: [address] [facility] [address] [place] [address], Ph. 11/26/2019 Degeneration of Lumbar Intervertebral Disc; Degeneration of Lumbosacral Intervertebral Disc; Displacement of Lumbar Intervertebral Disc without Myelopathy; Intervertebral Disc Disorder; Spondylosis without Myelopathy; Lumbosacral Spondylosis without Myelopathy; Lumbar Radiculopathy Sharlene Ambrocio HARD HAT DIVER: [address] [facility] [place] [address], Ph. 11/12/2019 Lumbar Radiculopathy; Degeneration of Lumbar Intervertebral Disc; Degeneration of Lumbosacral Intervertebral Disc; Displacement of Lumbar Intervertebral Disc without Myelopathy; Intervertebral Disc Disorder; Spondylosis without Myelopathy; Lumbosacral Spondylosis without Myelopathy Tyrone Beach MD: [address] [address], [place] [address], Ph. 11/09/2019 Pre-surgery Testing; Viral Screening Tyrone Beach MD: [address] [address], [place] [address], Ph. [phone] 11/02/2019 Degeneration of Lumbar Intervertebral Disc; Degeneration of Lumbosacral Intervertebral Disc; Displacement of Lumbar Intervertebral Disc without Myelopathy; Intervertebral Disc Disorder; Spondylosis without Myelopathy; Lumbosacral Spondylosis without Myelopathy; Lumbar Radiculopathy Sharlene Ambrocio HARD HAT DIVER: [id number] [address], Ph. 09/21/2019 Degeneration of Lumbar Intervertebral Disc; Degeneration of Lumbosacral Intervertebral Disc; Displacement of Lumbar Intervertebral Disc without Myelopathy; Intervertebral Disc Disorder; Spondylosis without Myelopathy; Lumbosacral Spondylosis without Myelopathy; Lumbar Radiculopathy Sharlene Ambrocio, HARD HAT DIVER: [address] [address], [place] [address], Ph. 08/31/2019 Lumbar Radiculopathy; Degeneration of Lumbar Intervertebral Disc; Degeneration of Lumbosacral Intervertebral Disc; Displacement of Lumbar Intervertebral Disc without Myelopathy; Intervertebral Disc Disorder; Spondylosis without Myelopathy; Lumbosacral Spondylosis without Myelopathy; Lumbosacral Radiculopathy Tyrone Beach MD: [address] [address], [place] [address], Ph. 08/28/2019 Pre-surgery Testing Tyrone Beach MD: [address] [address], [place] [address], Ph. [phone] 08/10/2019 Lumbar Radiculopathy; Degeneration of Lumbar Intervertebral Disc; Degeneration of Lumbosacral Intervertebral Disc; Displacement of Lumbar Intervertebral Disc without Myelopathy; Intervertebral Disc Disorder; Spondylosis without Myelopathy; Lumbosacral Spondylosis without Myelopathy; Lumbosacral Radiculopathy Tyrone Beach MD: [address] [address], Ph. 08/06/2019 Pre-surgery Testing Tyrone Beach MD: [address] [address], Ph. 08/05/2019 Degeneration of Lumbar Intervertebral Disc; Degeneration of Lumbosacral Intervertebral Disc; Displacement of Lumbar Intervertebral Disc without Myelopathy; Intervertebral Disc Disorder; Spondylosis without Myelopathy; Lumbosacral Spondylosis without Myelopathy; Lumbar Radiculopathy; Lumbosacral Radiculopathy Sharlene Ambrocio HARD HAT DIVER: [address] [address], Ph. 07/14/2019 Degeneration of Lumbar Intervertebral Disc; Degeneration of Lumbosacral Intervertebral Disc; Displacement of Lumbar Intervertebral Disc without Myelopathy; Intervertebral Disc Disorder; Spondylosis without Myelopathy; Lumbosacral Spondylosis without Myelopathy; Lumbar Radiculopathy Sharlene Ambrocio HARD HAT DIVER: [address] [address], Ph. 05/21/2019 Lumbar Radiculopathy; Degeneration of Lumbar Intervertebral Disc; Degeneration of Lumbosacral Intervertebral Disc; Displacement of Lumbar Intervertebral Disc without Myelopathy; Intervertebral Disc Disorder; Spondylosis without Myelopathy; Lumbosacral Spondylosis without Myelopathy; Lumbosacral Radiculopathy Tyrone Beach MD: [address] [address], Ph. 04/29/2019 Degeneration of Lumbar Intervertebral Disc; Degeneration of Lumbosacral Intervertebral Disc; Displacement of Lumbar Intervertebral Disc without Myelopathy; Intervertebral Disc Disorder; Spondylosis without Myelopathy; Lumbosacral Spondylosis without Myelopathy; Lumbar Radiculopathy Sharlene Bates Joychapitoyesi, HARD HAT DIVER: [address] [address], [place] [address], Ph. 03/20/2019 Degeneration of Lumbar Intervertebral Disc; Degeneration of Lumbosacral Intervertebral Disc; Displacement of Lumbar Intervertebral Disc without Myelopathy; Intervertebral Disc Disorder; Spondylosis without Myelopathy; Lumbosacral Spondylosis without Myelopathy; Lumbar Radiculopathy Sharlene Ulloalisandro Cristóbal, HARD HAT DIVER: [address] [address], Ph. 02/10/2019 Degeneration of Lumbar Intervertebral Disc; Degeneration of Lumbosacral Intervertebral Disc; Displacement of Lumbar Intervertebral Disc without Myelopathy; Intervertebral Disc Disorder; Spondylosis without Myelopathy; Lumbosacral Spondylosis without Myelopathy; Lumbar Radiculopathy Sharlene Ulloalisandro Cristóbal, HARD HAT DIVER: [address] [address], Ph. 01/21/2019 Lumbar Radiculopathy; Degeneration of Lumbar Intervertebral Disc; Degeneration of Lumbosacral Intervertebral Disc; Displacement of Lumbar Intervertebral Disc without Myelopathy; Intervertebral Disc Disorder; Spondylosis without Myelopathy; Lumbosacral Spondylosis without Myelopathy Tyrone Beach MD: [address] [address], Ph. 12/31/2018 Lumbar Radiculopathy; Degeneration of Lumbar Intervertebral Disc; Degeneration of Lumbosacral Intervertebral Disc; Displacement of Lumbar Intervertebral Disc without Myelopathy; Intervertebral Disc Disorder; Spondylosis without Myelopathy; Lumbosacral Spondylosis without Myelopathy Tyrone Beach MD: [address] [address], Ph. 11/04/2018 Degeneration of Lumbar Intervertebral Disc; Degeneration of Lumbosacral Intervertebral Disc; Displacement of Lumbar Intervertebral Disc without Myelopathy; Intervertebral Disc Disorder; Spondylosis without Myelopathy; Lumbosacral Spondylosis without Myelopathy; Lumbar Radiculopathy Sharlene Paulo Cristóbal, HARD HAT DIVER: [address] [address], Ph. 09/23/2018 Degeneration of Lumbar Intervertebral Disc; Degeneration of Lumbosacral Intervertebral Disc; Displacement of Lumbar Intervertebral Disc without Myelopathy; Intervertebral Disc Disorder; Spondylosis without Myelopathy; Lumbosacral Spondylosis without Myelopathy; Lumbar Radiculopathy Sharlene Ambrocio, HARD HAT DIVER: [address] [address], Ph. 08/20/2018 Degeneration of Lumbar Intervertebral Disc; Degeneration of Lumbosacral Intervertebral Disc; Displacement of Lumbar Intervertebral Disc without Myelopathy; Intervertebral Disc Disorder; Spondylosis without Myelopathy; Lumbosacral Spondylosis without Myelopathy; Lumbar Radiculopathy Tyrone Beach MD: [address] [address], Ph. 07/04/2018 Degeneration of Lumbar Intervertebral Disc; Degeneration of Lumbosacral Intervertebral Disc; Displacement of Lumbar Intervertebral Disc without Myelopathy; Intervertebral Disc Disorder; Spondylosis without Myelopathy; Lumbosacral Spondylosis without Myelopathy; Lumbar Radiculopathy Sharlene Paulo Ambrocio, HARD HAT DIVER: [address] [address], Ph. 05/23/2018 Degeneration of Lumbar Intervertebral Disc; Degeneration of Lumbosacral Intervertebral Disc; Displacement of Lumbar Intervertebral Disc without Myelopathy; Intervertebral Disc Disorder; Spondylosis without Myelopathy; Lumbosacral Spondylosis without Myelopathy; Lumbar Radiculopathy Sharlene Ambrocio, HARD HAT DIVER: [address] [address], Ph. 04/09/2018 Degeneration of Lumbar Intervertebral Disc; Degeneration of Lumbosacral Intervertebral Disc; Displacement of Lumbar Intervertebral Disc without Myelopathy; Intervertebral Disc Disorder; Spondylosis without Myelopathy; Lumbosacral Spondylosis without Myelopathy; Lumbar Radiculopathy Tyrone Beach MD: [address] [address], Ph. 03/13/2018 Degeneration of Lumbar Intervertebral Disc; Degeneration of Lumbosacral Intervertebral Disc; Displacement of Lumbar Intervertebral Disc without Myelopathy; Intervertebral Disc Disorder; Spondylosis without Myelopathy; Lumbosacral Spondylosis without Myelopathy; Lumbar Radiculopathy Sharlene Mandakotahmalinasuzanna Ambrocio NP: [address], [address], [place] [address], Ph. 02/20/2018 Degeneration of Lumbar Intervertebral Disc; Degeneration of Lumbosacral Intervertebral Disc; Displacement of Lumbar Intervertebral Disc without Myelopathy; Intervertebral Disc Disorder; Spondylosis without Myelopathy; Lumbosacral Spondylosis without Myelopathy; Lumbar Radiculopathy Tyrone Beach MD: [address] [facility] [address], [place] [address], Ph. Social History Tobacco Smoking Status Never [...]
--- OUTSIDE RECORDS SUMMARY | 2020-04-06 13:04 | CCD ---
Author Author [facility] Organization [facility] Address Unknown Phone Unavailable Care Team Providers Care It Infrastructure Manager Name Role Phone Alis Ambrocio Sharlene DRAW IN HAND Unavailable Unavailable Jumalon, M Sharlene DRAW IN HAND Unavailable Unavailable Jumalon, M Sharlene DRAW IN HAND Unavailable Unavailable Jumalon, M Sharlene DRAW IN HAND Unavailable Unavailable Jumalon, M Sharlene DRAW IN HAND Unavailable Unavailable Jumalon, M Sharlene DRAW IN HAND Unavailable Unavailable Jumalon, M Sharlene DRAW IN HAND Unavailable Unavailable Jumalon, M Sharlene DRAW IN HAND Unavailable Unavailable Jumalon, M Sharlene DRAW IN HAND Unavailable Unavailable Jumalon, M Sharlene DRAW IN HAND Unavailable Unavailable Jumalon, M Sharlene DRAW IN HAND Unavailable Unavailable Jumalon, M Sharlene DRAW IN HAND Unavailable Unavailable Jumalon, M Sharlene DRAW IN HAND Unavailable Unavailable Jumalon, M Sharlene DRAW IN HAND Unavailable Unavailable Jumalon, M Sharlene DRAW IN HAND Unavailable Unavailable Jumalon, M Sharlene DRAW IN HAND Unavailable Unavailable Jumalon, M Sharlene DRAW IN HAND Unavailable Unavailable Jumalon, M Sharlene DRAW IN HAND Unavailable Unavailable Jumalon, M Sharlene DRAW IN HAND Unavailable Unavailable Jumalon, M Sharlene DRAW IN HAND Unavailable Unavailable Jumalon, M Sharlene DRAW IN HAND Unavailable Unavailable Jumalon, M Sharlene DRAW IN HAND Unavailable Unavailable Jumalon, M Sharlene DRAW IN HAND Unavailable Unavailable Jumalon, M Sharlene DRAW IN HAND Unavailable Unavailable Jumalon, M Sharlene DRAW IN HAND Unavailable Unavailable Jumalon, M Sharlene DRAW IN HAND Unavailable Unavailable Jumalon, M Sharlene DRAW IN HAND Unavailable Unavailable Jumalon, M Sharlene DRAW IN HAND Unavailable Unavailable MCELHERAN, JHONNY PA Unavailable Unavailable MCELHERAN, JHONNY PA Unavailable Unavailable MCELHERAN, JHONNY PA Unavailable Unavailable MCELHERAN, JHONNY PA Unavailable Unavailable MCELHERAN, JHONNY PA Unavailable Unavailable MCELHERAN, JHONNY PA Unavailable Unavailable MCELHERAN, JHONNY PA Unavailable Unavailable MCELHERAN, JHONNY PA Unavailable Unavailable MCELHERAN, JHONNY PA Unavailable Unavailable MCELHERAN, JHONNY PA Unavailable Unavailable MCELHERAN, JHONYN PA Unavailable Unavailable MCELHERAN, JHONNY PA Unavailable Unavailable MCELHERAN, JHONNY PA Unavailable Unavailable MCELHERAN, JHONNY PA Unavailable Unavailable MCELHERAN, JHONNY PA Unavailable Unavailable MCELHERAN, JHONNY PA Unavailable Unavailable MCELHERAN, JHONNY PA Unavailable Unavailable MCELHERAN, JHONNY PA Unavailable Unavailable MCELHERAN, JHONNY PA Unavailable Unavailable MCELHERAN, JHONNY PA Unavailable Unavailable MCELHERAN, JHONNY PA Unavailable Unavailable MCELHERAN, JHONNY PA Unavailable Unavailable MCELHERAN, JHONNY PA Unavailable Unavailable MCELHERAN, JHONNY PA Unavailable Unavailable MCELHERAN, JHONNY PA Unavailable Unavailable MCELHERAN, JHONNY PA Unavailable Unavailable MCELHERAN, JHONNY PA Unavailable Unavailable MCELHERAN, JHONNY PA Unavailable Unavailable Dille, E Sally DDS Unavailable Unavailable Dille, E Sally DDS Unavailable Unavailable Dille, E Sally DDS Unavailable Unavailable Dille, E Sally DDS Unavailable Unavailable Sterling, Rj Unavailable Unavailable Sterling, Rj Unavailable Unavailable Sterling, Rj Unavailable Unavailable Sterling, Rj Unavailable Unavailable Sterling, Rj Unavailable Unavailable Sterling, Rj Unavailable Unavailable Sterlnig, Rj Unavailable Unavailable Sterling, Rj Unavailable Unavailable Sterling, Rj Unavailable Unavailable Sterling, Rj Unavailable Unavailable Sterling, Rj Unavailable Unavailable Sterling, Rj Unavailable Unavailable Sterling, Rj Unavailable Unavailable Sterling, Rj Unavailable Unavailable Sterling, Rj Unavailable Unavailable Sterling, Rj Unavailable Unavailable Sterling, Rj Unavailable Unavailable Sterling, Rj Unavailable Unavailable Sterling, Rj Unavailable Unavailable Sterling, Rj Unavailable Unavailable Sterling, Rj Unavailable Unavailable Sterling, Rj Unavailable Unavailable Sterling, Rj Unavailable Unavailable Sterling, Rj Unavailable Unavailable Sterling, Rj Unavailable Unavailable Sterling, Rj Unavailable Unavailable Sterling, Rj Unavailable Unavailable Sterling, Rj Unavailable Unavailable Sterling, Rj Unavailable Unavailable Sterling, Rj Unavailable Unavailable Sterling, Rj Unavailable Unavailable Sterling, Rj Unavailable Unavailable Sterling, Rj Unavailable Unavailable Sterling, Rj Unavailable Unavailable Sterling, Rj Unavailable Unavailable Sterling, Rj Unavailable Unavailable Sterling, Rj Unavailable Unavailable Sterling, Rj Unavailable Unavailable Sterling, Rj Unavailable Unavailable Sterling, Rj Unavailable Unavailable Sterling, Rj Unavailable Unavailable Sterling, Rj Unavailable Unavailable Sterling, Rj Unavailable Unavailable Sterling, Rj Unavailable Unavailable Bolla, S Tyrone MD Unavailable Unavailable Bolla, S Tyrone MD Unavailable Unavailable Boljoe, S Tyrone MD Unavailable Unavailable Boljoe, S Tyrone MD Unavailable Unavailable Boljoe S Tyrone MD Unavailable Unavailable Bolla, S Tyrone MD Unavailable Unavailable Bolla, S Tyrone MD Unavailable Unavailable Bolla, S Tyrone MD Unavailable Unavailable Bolla, S Tyrone MD Unavailable Unavailable Boljoe S Tyrone MD Unavailable Unavailable Boljoe S Tyrone MD Unavailable Unavailable Bolla, S Tyrone MD Unavailable Unavailable Bolla, S Tyrone MD Unavailable Unavailable Bolla, S Tyrone MD Unavailable Unavailable Boljoe, S Tyrone MD Unavailable Unavailable Boljoe S Tyrone MD Unavailable Unavailable Bolla, S Tyrone MD Unavailable Unavailable Bolla, S Tyrone MD Unavailable Unavailable Bolla, S Tyrone MD Unavailable Unavailable Bolla, S Tyrone MD Unavailable Unavailable Bolla, S Tyrone MD Unavailable Unavailable Bolla, S Tyrone MD Unavailable Unavailable Bolla S Tyrone MD Unavailable Unavailable Bolla, S Tyrone MD Unavailable Unavailable Bolla, S Tyrone MD Unavailable Unavailable Bolla, S Tyrone MD Unavailable Unavailable Bolla, S Tyrone MD Unavailable Unavailable Bolla, S Tyrone MD Unavailable Unavailable Bolla, S Tyrone MD Unavailable Unavailable Bolla, S Tyrone MD Unavailable Unavailable Bolla, S Tyrone MD Unavailable Unavailable Bolla, S Tyrone MD Unavailable Unavailable Bolla, S Tyrone MD Unavailable Unavailable Bolla, S Tyrone MD Unavailable Unavailable Bolla, S Tyrone MD Unavailable Unavailable Bolla, S Tyrone MD Unavailable Unavailable Bolla, S Tyrone MD Unavailable Unavailable Bolla, S Tyrone MD Unavailable Unavailable Bolla, S Tyrone MD Unavailable Unavailable Bolla, S Tyrone MD Unavailable Unavailable Bolla, S Tyrone MD Unavailable Unavailable Bolla, S Tyrone MD Unavailable Unavailable Bolla, S Tyrone MD Unavailable Unavailable Bolla, S Tyrone MD Unavailable Unavailable Bolla, S Tyrone MD Unavailable Unavailable Bolla, S Tyrone MD Unavailable Unavailable Bolla, S Tyrone MD Unavailable Unavailable Bolla, S Tyrone MD Unavailable Unavailable Re-disclosure Warning The records that you are about to access may contain information from federally-assisted alcohol or drug abuse programs. If such information is present, then the following federally mandated warning applies: This information has been disclosed to you from records protected by federal confidentiality rules (42 CFR part 2). The federal rules prohibit you from making any further disclosure of this information unless further disclosure is expressly permitted by the written consent of the person to whom it pertains or as otherwise permitted by 42 CFR part 2. A general authorization for the release of medical or other information is NOT sufficient for this purpose. The Federal rules restrict any use of the information to criminally investigate or prosecute any alcohol or drug abuse patient.The records that you are about to access may contain highly sensitive health information, the redisclosure of which is protected by Article 27-F of the [facility] Public Health law. If you continue you may have access to information: Regarding HIV / AIDS; Provided by facilities licensed or operated by the [facility] Office of Mental Health; or Provided by the [facility] Office for People With Developmental Disabilities. If such information is present, then the following [facility] mandated warning applies: This information has been disclosed to you from confidential records which are protected by state law. State law prohibits you from making any further disclosure of this information without the specific written consent of the person to whom it pertains, or as otherwise permitted by law. Any unauthorized further disclosure in violation of state law may result in a fine or shelter sentence or both. A general authorization for the release of medical or other information is NOT sufficient authorization for further disc losure. Encounters Encounter Providers Location Date Indications Data Source(s ) Sharlene Ambrocio, CHIEF OPERATOR SYNTHESIS: [address], [place] [address], Ph. Attender: Sharlene Ambrocio [facility] 03/28/2020 12:00:00 AM EST ATHE NA ([facility]) Sharlene Ambrocio, CHIEF OPERATOR SYNTHESIS: [address], [place] [address], Ph. Attender: Sharlene Ambrocio [facility] 02/17/2020 12:00:00 AM EST ATHE NA ([facility]) Unknown [address] [facility] [address] [place] [address] 02/17/2020 12:00:00 AM EST [facility] ([facility]) Sharlene Ambrocio, CHIEF OPERATOR SYNTHESIS: [address], [place] [address], Ph. Attender: Sharlene Ambrocio [facility] 02/17/2020 12:00:00 AM EST ATHE NA ([facility]) Sharlene Ambrocio, CHIEF OPERATOR SYNTHESIS: [address], [place] [address], Ph. Attender: Sharlene Ambrocio [facility] 01/26/2020 12:00:00 AM EST ATHE NA ([facility]) Sharlene Ambrocio, CHIEF OPERATOR SYNTHESIS: [address], [place] [address], Ph. Attender: Sharlenehugo Ambrocio [facility] 01/26/2020 12:00:00 AM EST ATHE NA ([facility]) Sharlene Bates Simbayesi, CHIEF OPERATOR SYNTHESIS: [address], [place] [address], Ph. Attender: Sharlene Amborcio [facility] - [facility] 01/26/2020 12:00:00 AM EST ATHE NA ([facility]) Unknown [address] [facility] [address] [place] [address] 01/11/2020 12:00:00 AM EDT eC ([facility]) Sharlene Waggonermalinasuzanna Joyvamshi, CHIEF OPERATOR SYNTHESIS: [address], [place] [address], Ph. Attender: Sharlene Ambrocio [facility] - [facility] 12/29/2019 12:00:00 AM EDT ATHE NA ([facility]) Sharlene Ambrocio, CHIEF OPERATOR SYNTHESIS: [address], [place] [address], Ph. Attender: Sharlene Ambrocio [facility] - [facility] 12/29/2019 12:00:00 AM EDT ATHE NA ([facility]) Sharlene mAbrocio, CHIEF OPERATOR SYNTHESIS: [address], [place] [address], Ph. Attender: Sharlene Ambrocio [facility] - [facility] 12/29/2019 12:00:00 AM EDT ATHE NA ([facility]) Sharlene Ambrocio, CHIEF OPERATOR SYNTHESIS: [address], [place] [address], Ph. Attender: Sharlene Ambrocio [facility] - [facility] 12/29/2019 12:00:00 AM EDT ATHE NA ([facility]) Sharlene Ambrocio, CHIEF OPERATOR SYNTHESIS: [address], [address], [place] [address], Ph. Attender: Sharlene Ambrocio [facility] - [facility] 11/26/2019 12:00:00 AM EDT ATHE NA ([facility]) Sharlene Ambrocio, CHIEF OPERATOR SYNTHESIS: [address], [address], [place] [address], Ph. Attender: Sharlene Ambrocio [facility] - [facility] 11/26/2019 12:00:00 AM EDT ATHE NA ([facility]) Sharlene Ambrocio, CHIEF OPERATOR SYNTHESIS: [address], [place] [address], Ph. Attender: Sharlene Ambrocio [facility] - [facility] 11/26/2019 12:00:00 AM EDT ATHE NA ([facility]) Sharlene Ambrocio, CHIEF OPERATOR SYNTHESIS: [address], [address], [place] [address], Ph. Attender: Sharlene Ambrocio [facility] - [facility] 11/26/2019 12:00:00 AM EDT ATHE NA ([facility]) Sharlene Ambrocio, CHIEF OPERATOR SYNTHESIS: [address], [address], [place] [address], Ph. Attender: Sharlene Ambrocio [facility] - [facility] 11/26/2019 12:00:00 AM EDT ATHE NA ([facility]) Tyrone Beach MD: [address], [address], [place] [address], Ph. Attender: Tyrone Beach MD [place] - [facility] 11/12/2019 12:00:00 AM EDT JULISA ([facility]) Tyrone Beach MD: [address], [address], [place] [address], Ph. Attender: Tyrone POWER - [facility] 11/12/2019 12:00:00 AM EDT JULISA ([facility]) Tyrone Beach MD: [address], [address], [place] [address], Ph. Attender: Tyrone POWER - [facility] 11/12/2019 12:00:00 AM EDT JULISA ([facility]) Tyrone Beach MD: [address], [address], [place] [address], Ph. Attender: Tyrone POWER - [facility] 11/12/2019 12:00:00 AM EDT JULISA ([facility]) Tyrone Beach MD: [address], [address], [place] [address], Ph. Attender: Tyrone POWER - [facility] 11/12/2019 12:00:00 AM EDT JULISA ([facility]) Tyrone Beach MD: [address], [address], [place] [address], Ph. Attender: Tyrone POWER - [facility] 11/12/2019 12:00:00 AM EDT JULISA ([facility]) Tyrone Beach MD: [address], [address], [place] [address], Ph. [phone] Attender: Tyrone Beach MD [place] - [facility] 11/09/2019 12:00:00 AM EDT JULISA ([facility]) Tyrone Beach MD: [address], [address], [place] [address], Ph. [phone] Attender: Tyrone Beach MD [place] - [facility] 11/09/2019 12:00:00 AM EDT JULISA ([facility]) Tyrone Beach MD: [address], [address], [place] [address], Ph. [phone] Attender: Tyrone Beach MD [place] - [facility] 11/09/2019 12:00:00 AM EDT JULISA ([facility]) Tyrone Beach MD: [address], [address], [place] [address], Ph. [phone] Attender: Tyrone Beach MD [place] - [facility] 11/09/2019 12:00:00 AM EDT JULISA ([facility]) Tyrone Beach MD: [address], [address], [place] [address], Ph. [phone] Attender: Tyrone Beach MD [place] - [facility] - [facility] 11/09/2019 12:00:00 AM EDT JULISA ([facility]) Tyrone Beach MD: [address], [address], [place] [address], Ph. [phone] Attender: Tyrone Beach MD [place] - [facility] 11/09/2019 12:00:00 AM EDT JULISA ([facility]) Tyrone Beach MD: [address], [address], [place] [address], Ph. [phone] Attender: Tyrone Beach MD [place] - [facility] 11/09/2019 12:00:00 AM EDT JULISA ([facility]) Sharlene Ambrocio, CHIEF OPERATOR SYNTHESIS: [address], [address], [place] [address], Ph. Attender: Sharlene Ambrocio [facility] - [facility] 11/02/2019 12:00:00 AM EDT ATHE NA ([facility]) Sharlene Ambrocio, CHIEF OPERATOR SYNTHESIS: [address], [address], [place] [address], Ph. Attender: Sharlene Ambrocio [facility] - [facility] 11/02/2019 12:00:00 AM EDT ATHE NA ([facility]) Sharlene Ambrocio, CHIEF OPERATOR SYNTHESIS: [address], [place] [address], Ph. Attender: Sharlene Ambrocio [facility] - [facility] 11/02/2019 12:00:00 AM EDT ATHE NA ([facility]) Sharlene Ambrocio, CHIEF OPERATOR SYNTHESIS: [address], [place] [address], Ph. Attender: Sharlene Ambrocio [facility] - [facility] 11/02/2019 12:00:00 AM EDT ATHE NA ([facility]) Sharlene Ambrocio, CHIEF OPERATOR SYNTHESIS: [address], [address], [place] [address], Ph. Attender: Sharlene Ambrocio [facility] - [facility] 11/02/2019 12:00:00 AM EDT ATHE NA ([facility]) Sharlene Ambrocio, CHIEF OPERATOR SYNTHESIS: [address], [address], [place] [address], Ph. Attender: Sharlenetiesha Hamiltonchapitoyesi [facility] - [facility] 11/02/2019 12:00:00 AM EDT ATHE NA ([facility]) Sharlene Ambrocio, CHIEF OPERATOR SYNTHESIS: [address], [place] [address], Ph. Attender: Sharlene Ambrocio [facility] - [facility] 11/02/2019 12:00:00 AM EDT ATHE NA ([facility]) Sharlene Ambrocio, CHIEF OPERATOR SYNTHESIS: [address], [address], [place] [address], Ph. Attender: Sharlene Ambrocio [facility] - [facility] 11/02/2019 12:00:00 AM EDT ATHE NA ([facility]) Sharlene Ambrocio, CHIEF OPERATOR SYNTHESIS: [address], [address], [place] [address], Ph. Attender: Sharlene Ambrocio [facility] - [facility] 09/21/2019 12:00:00 AM EDT ATHE NA ([facility]) Sharlene Ambrocio, CHIEF OPERATOR SYNTHESIS: [address], [address], [place] [address], Ph. Attender: Sharlene Ambrocio [facility] - [facility] 09/21/2019 12:00:00 AM EDT ATHE NA ([facility]) Sharlene Ambrocio, CHIEF OPERATOR SYNTHESIS: [address], [address], [place] [address], Ph. Attender: Sharlene Ambrocio [facility] - [facility] 09/21/2019 12:00:00 AM EDT ATHE NA ([facility]) Sharlene Bates Joychapitoyesi, CHIEF OPERATOR SYNTHESIS: [address], [address], [place] [address], Ph. Attender: Sharlene Ambrocio [facility] - [facility] 09/21/2019 12:00:00 AM EDT ATHE NA ([facility]) Sharlene Ambrocio, CHIEF OPERATOR SYNTHESIS: [address], [place] [address], Ph. Attender: Sharlene Ambrocio [facility] - [facility] 09/21/2019 12:00:00 AM EDT ATHE NA ([facility]) Sharlene Ambrocio, CHIEF OPERATOR SYNTHESIS: [address], [place] [address], Ph. Attender: Sharlene Ambrocio [facility] - [facility] 09/21/2019 12:00:00 AM EDT ATHE NA ([facility]) Sharlene Ambrocio, CHIEF OPERATOR SYNTHESIS: [address], [place] [address], Ph. Attender: Sharlene Ambrocio [facility] - [facility] 09/21/2019 12:00:00 AM EDT ATHE NA ([facility]) Sharlene Ambrocio, CHIEF OPERATOR SYNTHESIS: [address], [place] [address], Ph. Attender: Sharlene Ambrocio [facility] - [facility] 09/21/2019 12:00:00 AM EDT ATHE NA ([facility]) Sharlene Ambrocio, CHIEF OPERATOR SYNTHESIS: [address], [place] [address], Ph. Attender: Sharlene Ambrocio [facility] - [facility] 09/21/2019 12:00:00 AM EDT ATHE NA ([facility]) Unknown [address] [facility] [facility], [facility] [address] 09/11/2019 12:00:00 AM EDT eCW1 ([facility]) Outpatient Attender: Sally Johnson Danni [facility] 09/01/2019 07:45:42 P M EDT [facility] Tyrone Beach MD: [address], [place] [address], Ph. Attender: Tyrone POWER - [facility] - [facility] 08/31/2019 12:00:00 AM EDT JULISA ([facility]) Tyrone Beach MD: [address], [place] [address], Ph. Attender: Tyrone POWER - [facility] 08/31/2019 12:00:00 AM EDT JULISA ([facility]) Tyrone Beach MD: [address], [place] [address], Ph. Attender: Tyrone POWER - [facility] 08/31/2019 12:00:00 AM EDT JULISA ([facility]) Tyrone Beach MD: [address], [place] [address], Ph. Attender: Tyrone POWER - [facility] 08/31/2019 12:00:00 AM EDT JULISA ([facility]) Tyrone Beach MD: [address], [place] [address], Ph. Attender: Tyrone POWER - [facility] 08/31/2019 12:00:00 AM EDT JULISA ([facility]) Tyrone Beach MD: [address], [address], [place] [address], Ph. Attender: Tyrone Beach MD [place] - [facility] 08/31/2019 12:00:00 AM EDT JULISA ([facility]) Tyrone Beach MD: [address], [address], [place] [address], Ph. Attender: Tyrone Beach MD [place] - [facility] 08/31/2019 12:00:00 AM EDT JULISA ([facility]) Tyrone Beach MD: [address], [address], [place] [address], Ph. Attender: Tyrone Beach MD [place] - [facility] 08/31/2019 12:00:00 AM EDT JULISA ([facility]) Tyrone Beach MD: [address], [address], [place] [address], Ph. Attender: Tyrone Beach MD [place] - [facility] 08/31/2019 12:00:00 AM EDT JULISA ([facility]) Tyrone Beach MD: [address], [place] [address], Ph. Attender: Tyrone Beach MD [place] - [facility] 08/31/2019 12:00:00 AM EDT JULISA ([facility]) Tyrone Beach MD: [address], [place] [address], Ph. [phone] Attender: Tyrone Beach MD [place] - [facility] 08/28/2019 12:00:00 AM EDT JULISA ([facility]) Tyrone Beach MD: [address], [address], [place] [address], Ph. [phone] Attender: Tyrone Beach MD [place] - [facility] 08/28/2019 12:00:00 AM EDT JULISA ([facility]) Tyrone Beach MD: [address], [address], [place] [address], Ph. [phone] Attender: Tyrone [place] MD [place] - [facility] [facility] 08/28/2019 12:00:00 AM EDT JULISA ([facility]) Tyrone Beach MD: [address], [address], [place] [address], Ph. [phone] Attender: Tyrone Beach MD [place] - [facility] 08/28/2019 12:00:00 AM EDT JULISA ([facility]) Tyrone Beach MD: [address], [address], [place] [address], Ph. [phone] Attender: Tyrone [place] MD [place] - [facility] 08/28/2019 12:00:00 AM EDT JULISA ([facility]) Tyrone Beach MD: [address], [address], [place] [address], Ph. [phone] Attender: Tyrone Beach MD [place] - [facility] 08/28/2019 12:00:00 AM EDT JULISA ([facility]) Tyrone Beach MD: [address], [address], [place] [address], Ph. [phone] Attender: Tyrone [place] MD [place] - [facility] 08/28/2019 12:00:00 AM EDT JULISA ([facility]) Tyrone Beach MD: [address], [address], [place] [address], Ph. [phone] Attender: Tyrone Beach MD [place] - [facility] - [facility] Office 08/28/2019 12:00:00 AM EDT JULISA ([facility]) Tyrone Beach MD: [address], [place] [address], Ph. [phone] Attender: Tyrone Beach MD [place] - [facility] - [facility] Office 08/28/2019 12:00:00 AM EDT JULISA ([facility]) Tyrone Beach MD: [address], [address], [place] [address], Ph. [phone] Attender: Tyrone [place] MD [place] - [facility] 08/28/2019 12:00:00 AM EDT JULISA ([facility]) Tyrone Beach MD: [address], [place] [address], Ph. [phone] Attender: Tyrone Beach MD [place] - [facility] - [facility] Office 08/28/2019 12:00:00 AM EDT JULISA ([facility]) Unknown [address] [facility] [address] 08/25/2019 12:00:00 AM EDT eC (Formerly [facility]) Outpatient Attender: Sally Johnson [facility] 08/22/2019 12:14:06 A M EDT [facility] Tyrone Beach MD: [address], [place] [address], Ph. Attender: Tyrone [place] MD [place] - [facility] Office 08/10/2019 12:00:00 AM EDT JULISA ([facility]) Tyrone Beach MD: [address], [address], [place] [address], Ph. Attender: Tyrone Beach MD [place] - [facility] 08/10/2019 12:00:00 AM EDT JULISA ([facility]) Tyrone Beach MD: [address], [address], [place] [address], Ph. Attender: Tyrone Beach MD [place] - [facility] 08/10/2019 12:00:00 AM EDT JULISA ([facility]) Tyrone Beach MD: [address], [address], [place] [address], Ph. Attender: Tyrone POWER - [facility] 08/10/2019 12:00:00 AM EDT JULISA ([facility]) Tyrone Beach MD: [address], [address], [place] [address], Ph. Attender: Tyrone POWER - [facility] 08/10/2019 12:00:00 AM EDT JULISA ([facility]) Tyrone Beach MD: [address]88 [address], [address], [place] [address], Ph. Attender: Tyrone POWER - [facility] 08/10/2019 12:00:00 AM EDT JULISA ([facility]) Tyrone Beach MD: [address]78 [address], [address], [place] [address], Ph. Attender: Tyrone POWER - [facility] 08/10/2019 12:00:00 AM EDT JULISA ([facility]) Tyrone Beach MD: [address], [address], [place] [address], Ph. Attender: Tyrone POWER - [facility] 08/10/2019 12:00:00 AM EDT JULISA ([facility]) Tyrone Beach MD: [address], [address], [place] [address], Ph. Attender: Tyrone Beach MD [place] - [facility] 08/10/2019 12:00:00 AM EDT JULISA ([facility]) Tyrone Beach MD: [address], [address], [place] [address], Ph. Attender: Tyrone Beach MD [place] - [facility] 08/10/2019 12:00:00 AM EDT JULISA ([facility]) Tyrone Beach MD: [address]33 [address], [address], [place] [address], Ph. Attender: Tyrone POWER - [facility] 08/10/2019 12:00:00 AM EDT JULISA ([facility]) Tyrone Beach MD: [address], [address], [place] [address], Ph. Attender: Tyrone POWER - [facility] 08/10/2019 12:00:00 AM EDT JULISA ([facility]) Tyrone Beach MD: [address]70 [address], [address], [place] [address], Ph. Attender: Tyrone POWER - [facility] 08/06/2019 12:00:00 AM EDT JULISA ([facility]) Tyrone Beach MD: [address]19 [address], [address], [place] [address], Ph. Attender: Tyrone Beach MD [place] - [facility] 08/06/2019 12:00:00 AM EDT JULISA ([facility]) Tyrone Beach MD: [address]82 [address], [address], [place] [address], Ph. Attender: Tyrone Beach MD [place] - [facility] 08/06/2019 12:00:00 AM EDT JULISA ([facility]) Tyrone Beach MD: [address]60 [address], [address], [place] [address], Ph. Attender: Tyrone POWER - [facility] 08/06/2019 12:00:00 AM EDT JULISA ([facility]) Tyrone Beach MD: 78692 [address], [address], [place] [address], Ph. Attender: Tyrone POWER - [facility] 08/06/2019 12:00:00 AM EDT JULISA ([facility]) Tyrone Beach MD: [address]376 [address], [address], [place] [address], Ph. Attender: Tyrone POWER - [facility] 08/06/2019 12:00:00 AM EDT JULISA ([facility]) Tyrone Beach MD: [address]80 [address], [address], [place] [address], Ph. Attender: Tyrone POWER - [facility] 08/06/2019 12:00:00 AM EDT JULISA ([facility]) Tyrone Beach MD: [address]64 [address], [address], [place] [address], Ph. Attender: Tyrone POWER - [facility] 08/06/2019 12:00:00 AM EDT JULISA ([facility]) Tyrone Beach MD: [address]62 [address], [address], [place] [address], Ph. Attender: Tyrone Beach MD [place] - [facility] 08/06/2019 12:00:00 AM EDT JULISA ([facility]) Tyrone Beach MD: [address]91 [address], [address], [place] [address], Ph. Attender: Tyrone Beach MD [place] - [facility] 08/06/2019 12:00:00 AM EDT JULISA ([facility]) Tyrone Beach MD: [address]88 [address], [address], [place] [address], Ph. Attender: Tyrone Beach MD [place] - [facility] 08/06/2019 12:00:00 AM EDT JULISA ([facility]) Tyrone Beach MD: [address]17 [address], [address], [place] [address], Ph. Attender: Tyrone Beach MD [place] - [facility] 08/06/2019 12:00:00 AM EDT JULISA ([facility]) Tyrone Beach MD: [address]63 [address], [address], [place] [address], Ph. Attender: Tyrone Beach MD [place] - [facility] 08/06/2019 12:00:00 AM EDT JULISA ([facility]) Sharlene Ambrocio, CHIEF OPERATOR [employer]: [address], [address], [place] [address], Ph. Attender: Sharlene Ambrocio [facility] - [facility] 08/05/2019 12:00:00 AM EDT ATHE NA ([facility]) Sharlene Ambrocio, CHIEF OPER[employer]: [address], [place] [address], Ph. Attender: Sharlene Ambrocio [facility] 08/05/2019 12:00:00 AM EDT ATHE NA ([facility]) Sharlene Ambrocio, CHIEF OPER[employer]: [address], [place] [address], Ph. Attender: Sharlene Ambrocio [facility] - [facility] 08/05/2019 12:00:00 AM EDT ATHE NA ([facility]) Sharlene Ambrocio, CHIEF OPER[employer]: [address], [place] [address], Ph. Attender: Sharlene Ambrocio [facility] 08/05/2019 12:00:00 AM EDT ATHE NA ([facility]) Sharlene Ambrocio, CHIEF OPER[employer]: [address], [place] [address], Ph. Attender: Sharlene Ambrocio [facility] 08/05/2019 12:00:00 AM EDT ATHE NA ([facility]) Sharlene Ambrocio, CH[employer]PER[employer]: [address], [place] [address], Ph. Attender: Sharlene Ambrocio [facility] - [facility] 08/05/2019 12:00:00 AM EDT ATHE NA ([facility]) Sharlene Ambrocio, CHIEF OPER[employer]: [address], [place] [address], Ph. Attender: Sharlene Ambrocio [facility] - [facility] 08/05/2019 12:00:00 AM EDT ATHE NA ([facility]) Sharlene Ambrocio, CHIEF OPER[employer]: [address], [address], [place] [address], Ph. Attender: Sharlene Ambrocio [facility] - [facility] 08/05/2019 12:00:00 AM EDT ATHE NA ([facility]) Sharlene Ambrocio, CHIE[employer] OPER[employer]: [address], [address], [place] [address], Ph. Attender: Sharlene Ambrocio [facility] - [facility] 08/05/2019 12:00:00 AM EDT ATHE NA ([facility]) Sharlene Ambrocio, CHIEF OPER[employer]: [address], [address], [place] [address], Ph. Attender: Sharlene Ambrocio [facility] - [facility] 08/05/2019 12:00:00 AM EDT ATHE NA ([facility]) Sharlene Ambrocio, CHIEF OPER[employer]: [address], [address], [place] [address], Ph. Attender: Sharlene Ambrocio [facility] - [facility] 08/05/2019 12:00:00 AM EDT ATHE NA ([facility]) Sharlene Ambrocio, CHIEF OPER[employer]: [address], [place] [address], Ph. Attender: Sharlene Ambrocio [facility] - [facility] 08/05/2019 12:00:00 AM EDT ATHE NA ([facility]) Sharlene Ambrocio, CHIEF OPERATOR [employer]: [address], [address], [place] [address], Ph. Attender: [facility]roc[facility] - [facility] 08/05/2019 12:00:00 AM EDT ATHHugo COLON ([facility]) Sharlene Ambrocio, CHIEF OPERATOR [employer]: [address], [address], [place] [address], Ph. Attender: [facility]arlene [facility]rocio [facility] 08/05/2019 12:00:00 AM EDT ATHHugo COLON ([facility]) Sharlene Ambrocio, CHIEF OPERATOR [employer]: [address], [place] [address], Ph. Attender: [facility]arlene [facility]rocio [facility] 07/14/2019 12:00:00 AM EDT JULISA ([facility]) Sharlene Ambrocio, CHIEF OPERATOR [employer]: [address], [place] [address], Ph. Attender: Sharlene [facility]rocio [facility] 07/14/2019 12:00:00 AM EDT JULISA ([facility]) Sharlene Ambrocio, CHIEF OPERATOR [employer]: [address], [place] [address], Ph. Attender: Sharlene [facility]rocio [facility] 07/14/2019 12:00:00 AM EDT JULISA ([facility]) Sharlene Ambrocio, CHIEF OPERATOR [employer]: [address], [place] [address], Ph. Attender: Sharlene [facility]rocio [facility] 07/14/2019 12:00:00 AM EDT JULISA ([facility]) Sahrlene Ambrocio, CHIEF OPERATOR [employer]: [address], [place] [address], Ph. Attender: Sharlene Ambrocio [facility] - [facility] 07/14/2019 12:00:00 AM EDT JULISA ([facility]) Sharlene Ambrocio, CHIEF OPERATOR [employer]: [address], [place] [address], Ph. Attender: Sharlene Joyvamshi [facility] - [facility] 07/14/2019 12:00:00 AM EDT JULISA ([facility]) Sharlene Ambrocio, CHIEF OPERATOR [employer]: [address]65 [address], [place] [address], Ph. Attender: Sharlene Joyvamshi [facility] - [facility] 07/14/2019 12:00:00 AM EDT JULISA ([facility]) Sharlene Ambrocio, CHIEF OPERATOR [employer]: [address]76 [address], [place] [address], Ph. Attender: Sharlene Joyvamshi [facility] - [facility] 07/14/2019 12:00:00 AM EDT JULISA ([facility]) Sharlene Ambrocio, CHIEF OPERATOR [employer]: [address], [place] [address], Ph. Attender: Sharlenehugo Ambrocio D[place] - [facility] 07/14/2019 12:00:00 AM EDT JULISA ([facility]) Sharlene Ambrocio, CHIEF OPERATOR [employer]: [address], [place] [address], Ph. Attender: Sharlene Ambrocio [place] - [facility] 07/14/2019 12:00:00 AM EDT JULISA ([facility]) Sharlene Ambrocio, CHIEF OPERATOR [employer]: [address], [place] [address], Ph. Attender: Sharlene Ambrocio D[place] - [facility] 07/14/2019 12:00:00 AM EDT JULISA ([facility]) Sharlene Ambrocio, CHIEF OPERATOR [employer]: [address], [place] [address], Ph. Attender: [facility]arlene [facility]rocio [facility] 07/14/2019 12:00:00 AM EDT JULISA ([facility]) Sharlene Ambrocio, CHIEF OPERATOR [employer]: [address], [place] [address], Ph. Attender: Sharlene [facility]rocio [facility] 07/14/2019 12:00:00 AM EDT JULISA ([facility]) Sharlene Ambrocio, CHIEF OPERATOR [employer]: [address], [place] [address], Ph. Attender: Sharlene Ambrocio [place] IN HAND [place] - [facility] 07/14/2019 12:00:00 AM EDT JULISA ([facility]) Sharlene Ambrocio, CHIEF OPERATOR [employer]: [address], [place] [address], Ph. Attender: Sharlene Ambrocio D[place] IN HAND [place] - [facility] 07/14/2019 12:00:00 AM EDT JULISA ([facility]) [facility] [address] [facility] [address] 07/10/2019 12:00:00 AM EDT eCW1 (Formerly [facility]) [facility] [place] [address] [facility] [address] 06/30/2019 12:00:00 AM EDT eCW1 ([facility]ly [facility]) Tyrone Beach MD: [address], [place] [address], Ph. Attender: Tyrone Beach MD [place] - [facility] 05/21/2019 12:00:00 AM EST JULISA ([facility]) Tyrone Beach MD: [address]37 [address], [place] [address], Ph. Attender: Tyrone POWER - [facility] 05/21/2019 12:00:00 AM EST JULISA ([facility]) Tyrone Beach MD: [address]1533 [address], [place] [address], Ph. Attender: Tyrone Beach MD [place] - [facility] 05/21/2019 12:00:00 AM EST JULISA ([facility]) Tyrone Beach MD: 55357 [address], [place] [address], Ph. Attender: Tyrone Beach MD [place] - [facility] 05/21/2019 12:00:00 AM EST JULISA ([facility]) Tyrone Beach MD: 37258 [address], [place] [address], Ph. Attender: Tyrone POWER - [facility] 05/21/2019 12:00:00 AM EST JULISA ([facility]) Tyrone Beach MD: 94845 [address], [address], [place] [address], Ph. Attender: Tyrone Beach MD [place] - [facility] 05/21/2019 12:00:00 AM EST JULISA ([facility]) Tyrone Beach MD: [address]0933 [address], [place] [address], Ph. Attender: Tyrone Beach MD [place] - [facility] 05/21/2019 12:00:00 AM EST JULISA ([facility]) Tyrone Beach MD: 57143 [address], [place] [address], Ph. Attender: Tyrone Beach MD [place] - [facility] 05/21/2019 12:00:00 AM EST JULISA ([facility]) Tyrone Beach MD: [address]25 [address], [place] [address], Ph. Attender: Tyrone Beach MD [place] - [facility] 05/21/2019 12:00:00 AM EST JULISA ([facility]) Tyrone Beach MD: 24235 [address], [place] [address], Ph. Attender: Tyrone Beach MD [place] - [facility] 05/21/2019 12:00:00 AM EST JULISA ([facility]) Tyrone Beach MD: 05649 [address], [place] [address], Ph. Attender: Tyrone POWER - [facility] 05/21/2019 12:00:00 AM EST JULISA ([facility]) Tyrone Beach MD: 84413 [address], [place] [address], Ph. Attender: Tyrone Beach MD [place] - [facility] 05/21/2019 12:00:00 AM EST JULISA ([facility]) Tyrone Beach MD: 71263 [address], [address], [place] [address], Ph. Attender: Tyrone Beach MD [place] - [facility] 05/21/2019 12:00:00 AM EST JULISA ([facility]) Tyrone Beach MD: 43512 [address], [place] [address], Ph. Attender: Tyrone Beach MD [place] - [facility] 05/21/2019 12:00:00 AM EST JULISA ([facility]) Tyrone Beach MD: 87589 [address], [place] [address], Ph. Attender: Tyrone Beach MD [place] - [facility] 05/21/2019 12:00:00 AM EST JULISA ([facility]) Tyrone Beach MD: 21733 [address], [place] [address], Ph. Attender: Tyrone Beach MD [place] - [facility] 05/21/2019 12:00:00 AM EST JULISA ([facility]) [facility] [address] [facility] [address] 05/15/2019 12:00:00 AM EST eCW1 [facility] Sharlene Ambrocio, CHIEF OPERATOR [employer]: [address], [place] [address], Ph. [facility]: [facility] 04/29/2019 12:00:00 AM EST ATHE NA ([facility]) Sharlene Ambrocio, CHIEF OPERATOR [employer]: [address]605 [address], [place] [address], Ph. Attender: Sharlene Ambrocio [facility] 04/29/2019 12:00:00 AM EST ATHE NA ([facility]) Sharlene Ambrocio, CHIEF OPERATOR [employer]: [address]344 [address], [address], [place] [address], Ph. Attender: Sharlene Ambrocio [facility] 04/29/2019 12:00:00 AM EST ATHE NA ([facility]) Sharlene Ambrocio, CHIEF OPERATOR [employer]: [address]38 [address], [place] [address], Ph. Attender: Sharlene Ambrocio [facility] 04/29/2019 12:00:00 AM EST ATHE NA ([facility]) Sharlene Ambrocio, CHIEF OPERATOR [employer]: [address]108 [address], [place] [address], Ph. Attender: Sharlene Ambrocio [facility] 04/29/2019 12:00:00 AM EST ATHE NA ([facility]) Sharlene Ambrocio, CHIEF OPERATOR [employer]: [address]31 [address], [address], [place] [address], Ph. Attender: Sharlene Ambrocio [facility] 04/29/2019 12:00:00 AM EST ATHE NA ([facility]) Sharlene Ambrocio, CHIEF OPERATOR [employer]: [address]42 [address], [address], [place] [address], Ph. Attender: Sharlene Ambrocio [facility] - [facility] 04/29/2019 12:00:00 AM EST ATHE NA ([facility]) Sharlene Ambrocio, CHIEF OPERATOR [employer]: [address]862 [address], [place] [address], Ph. Attender: Sharlene Ambrocio [facility] - [facility] 04/29/2019 12:00:00 AM EST ATHE NA ([facility]) Sharlene Ambrocio, CHIEF OPERATOR [employer]: 16049 [address], [place] [address], Ph. Attender: Sharlene Ambrocio [facility] - [facility] 04/29/2019 12:00:00 AM EST ATHE NA ([facility]) Sharlene Ambrocio, CHIEF OPERATOR [employer]: [address]313 [address], [place] [address], Ph. Attender: Sharlene Ambrocio [facility] - [facility] 04/29/2019 12:00:00 AM EST ATHE NA ([facility]) Sharlene Ambrocio, CHIEF OPERATOR [employer]: [address]249 [address], [place] [address], Ph. Attender: Sharlene Ambrocio [facility] - [facility] 04/29/2019 12:00:00 AM EST ATHE NA ([facility]) Sharlene Ambrocio, CHIEF OPERATOR [employer]: [address]338 [address], [place] [address], Ph. Attender: Sharlene Ambrocio [facility] - [facility] 04/29/2019 12:00:00 AM EST ATHE NA ([facility]) Sharlene Ambrocio, CHIEF OPERATOR [employer]: [address]24 [address], [place] [address], Ph. Attender: Sharlene Ambrocio [facility] - [facility] 04/29/2019 12:00:00 AM EST ATHE NA ([facility]) Sharlene Ambrocio, CHIEF OPERATOR [employer]: [address]12 [address], [place] [address], Ph. Attender: Sharlene Ambrocio [facility] - [facility] 04/29/2019 12:00:00 AM EST ATHE NA ([facility]) Sharlene Ambrocio, CHIEF OPERATOR [employer]: [address]27 [address], [place] [address], Ph. Attender: Sharlene Ambrocio [facility] [facility] - [facility] 04/29/2019 12:00:00 AM EST ATHE NA ([facility]) Sharlene Ambrocio, CHIEF OPERATOR SYNTHESIS: [address], [place] [address], Ph. Attender: Sharlene Ambrocio [facility] 04/29/2019 12:00:00 AM EST ATHE NA ([facility]) Sharlene Ambrocio, CHIEF OPERATOR SYNTHESIS: [address], [place] [address], Ph. Attender: Sharlene Ambrocio [facility] 04/29/2019 12:00:00 AM EST ATHE NA ([facility]) OFFICE OUTPATIENT NEW 30 MINUTES Attender: [facility] 04/14/2019 01:30:00 PM EST MEDENT ([facility]) Sharlene Ambrocio, CHIEF OPERATOR SYNTHESIS: [address], [place] [address], Ph. Attender: Sharlene Ambrocio [facility] 03/20/2019 12:00:00 AM EST ATHE NA ([facility]) Sharlene Ambrocio, CHIEF OPERATOR SYNTHESIS: [address], [place] [address], Ph. Attender: Sharlene Ambrocio [facility] 03/20/2019 12:00:00 AM EST ATHE NA ([facility]) Sharlene Ambrocio, CHIEF OPERATOR SYNTHESIS: [address], [place] [address], Ph. Attender: Sharlene Ambrocio [facility] 03/20/2019 12:00:00 AM EST ATHE NA ([facility]) Sharlene Ambrocio, CHIEF OPERATOR SYNTHESIS: [address], [place] [address], Ph. Attender: Sharlene Ambrocio [facility] 03/20/2019 12:00:00 AM EST ATHE NA ([facility]) Sharlene Ambrocio, CHIEF OPERATOR SYNTHESIS: [address], [place] [address], Ph. Attender: Sharlene Ambrocio [facility] 03/20/2019 12:00:00 AM EST ATHE NA ([facility]) Sharlene Ambrocio, CHIEF OPERATOR SYNTHESIS: [address], [place] [address], Ph. Attender: Sharlene Ambrocio [facility] 03/20/2019 12:00:00 AM EST ATHE NA ([facility]) Sharlene Ambrocio, CHIEF OPERATOR SYNTHESIS: [address], [place] [address], Ph. Attender: Sharlene Ambrocio [facility] 03/20/2019 12:00:00 AM EST ATHE NA ([facility]) Sharlene Ambrocio, CHIEF OPERATOR SYNTHESIS: [address], [address], [place] [address], Ph. Attender: Sharlene Ambrocio [facility] 03/20/2019 12:00:00 AM EST ATHE NA ([facility]) Sharlene Ambrocio, CHIEF OPERATOR SYNTHESIS: [address], [place] [address], Ph. Attender: Sharlene Ambrocio [facility] 03/20/2019 12:00:00 AM EST ATHE NA ([facility]) Sharlene Ambrocio, CHIEF OPERATOR SYNTHESIS: [address], [place] [address], Ph. Attender: Sharlene Ambrocio [facility] 03/20/2019 12:00:00 AM EST ATHE NA ([facility]) Sharlene Ambrocio, CHIEF OPERATOR SYNTHESIS: [address], [place] [address], Ph. Attender: Sharlene Ambrocio [facility] 03/20/2019 12:00:00 AM EST ATHE NA ([facility]) Sharlene Ambrocio, CHIEF OPERATOR SYNTHESIS: [address], [place] [address], Ph. Attender: Sharlenehugo Cottrellyesi [facility] 03/20/2019 12:00:00 AM EST ATHE NA ([facility]) Sharlene Ambrocio, CHIEF OPERATOR SYNTHESIS: [address], [place] [address], Ph. Attender: Sharlene Ambrocio [facility] 03/20/2019 12:00:00 AM EST ATHE NA ([facility]) Sharlene Ambrocio, CHIEF OPERATOR SYNTHESIS: [address], [place] [address], Ph. Attender: Sharlene Ambrocio [facility] 03/20/2019 12:00:00 AM EST ATHE NA ([facility]) Sharlene Ambrocio, CHIEF OPERATOR SYNTHESIS: [address], [place] [address], Ph. Attender: Sharlene Ambrocio [facility] 03/20/2019 12:00:00 AM EST ATHE NA ([facility]) Sharlene Ambrocio, CHIEF OPERATOR SYNTHESIS: [address], [place] [address], Ph. Attender: Sharlene Ambrocio [facility] 03/20/2019 12:00:00 AM EST ATHE NA ([facility]) Sharlene Ambrocio, CHIEF OPERATOR SYNTHESIS: [address], [place] [address], Ph. Attender: Sharlene Ambrocio [facility] 03/20/2019 12:00:00 AM EST ATHE NA ([facility]) Sharlene Ambrocio, CHIEF OPERATOR SYNTHESIS: [address], [address], [place] [address], Ph. Attender: Sharlene Ambrocio [facility] 03/20/2019 12:00:00 AM EST ATHE NA ([facility]) Outpatient 03/05/2019 07:54:00 PM EST [facility] Radiology Imaging Outpatient Attender: JHONNY J[facility]SON [facility] 03/05/2019 02:45:00 PM EST MEDENT ([facility]) [facility] [address] [facility] [address] 02/25/2019 12:00:00 AM EST eCW1 ([facility]) [facility] [address] [facility] [address] 02/24/2019 12:00:00 AM EST eCW1 ([facility]) [facility] [address] [facility] [address] 02/17/2019 12:00:00 AM EST eCW1 ([facility]) Sharlene Artemiodakotahdanielle Ambrocio, CHIEF OPERATOR SYNTHESIS: [address], [place] [address], Ph. Attender: Sharlene Ambrocio [facility] 02/10/2019 12:00:00 AM EST ATHE NA ([facility]) Sharlene Artemiodakotahdanielle Ambrocio, CHIEF OPERATOR SYNTHESIS: [address], [place] [address], Ph. Attender: Sharlene Cottrellyesi [facility] 02/10/2019 12:00:00 AM EST MANANE NA ([facility]) Sharlene Artemiodakotahdanielle Ambrocio, CHIEF OPERATOR SYNTHESIS: [address], [place] [address], Ph. Attender: Sharlene Ambrocio [facility] 02/10/2019 12:00:00 AM EST ATHE NA ([facility]) Sharlene Ambrocio, CHIEF OPERATOR SYNTHESIS: [address], [address], [place] [address], Ph. Attender: Sharlene Ambrocio [facility] 02/10/2019 12:00:00 AM EST ATHE NA ([facility]) Sharlene Ambrocio, CHIEF OPERATOR SYNTHESIS: [address], [address], [place] [address], Ph. Attender: Sharlene Joychapitoyesi [facility] 02/10/2019 12:00:00 AM EST ATHE NA ([facility]) Sharlene Ambrocio, CHIEF OPERATOR SYNTHESIS: [address], [place] [address], Ph. Attender: Sharlene Joychapitoyesi [facility] 02/10/2019 12:00:00 AM EST ATHE NA ([facility]) Sharlene Ambrocio, CHIEF OPERATOR SYNTHESIS: [address], [place] [address], Ph. Attender: Sharlene Joychapitoyesi [facility] 02/10/2019 12:00:00 AM EST ATHE NA ([facility]) Sharlene Ambrocio, CHIEF OPERATOR SYNTHESIS: [address], [address], [place] [address], Ph. Attender: Sharlene Joychapitoyesi [facility] 02/10/2019 12:00:00 AM EST ATHE NA ([facility]) Sharlene Ambrocio, CHIEF OPERATOR SYNTHESIS: [address], [place] [address], Ph. Attender: Sharlene Ambrocio [facility] 02/10/2019 12:00:00 AM EST ATHE NA ([facility]) Sharlene Ambrocio, CHIEF OPERATOR SYNTHESIS: [address], [place] [address], Ph. Attender: Sharlene Ambrocio [facility] 02/10/2019 12:00:00 AM EST ATHE NA ([facility]) Sharlene Ambrocio, CHIEF OPERATOR SYNTHESIS: [address], [address], [place] [address], Ph. Attender: Sharlene Ambrocio [facility] 02/10/2019 12:00:00 AM EST ATHE NA ([facility]) Sharlene Ambrocio, CHIEF OPERATOR SYNTHESIS: [address], [place] [address], Ph. Attender: Sharlene Ambrocio [facility] 02/10/2019 12:00:00 AM EST ATHE NA ([facility]) Sharlene Ambrocio, CHIEF OPERATOR SYNTHESIS: [address], [place] [address], Ph. Attender: Sharlene Ambrocio [facility] 02/10/2019 12:00:00 AM EST ATHE NA ([facility]) Sharlene Ambrocio, CHIEF OPERATOR SYNTHESIS: [address], [address], [place] [address], Ph. Attender: Sharlene Ambrocio [facility] 02/10/2019 12:00:00 AM EST ATHE NA ([facility]) Sharlene Ambrocio, CHIEF OPERATOR SYNTHESIS: [address], [address], [place] [address], Ph. Attender: Sharlene Ambrocio [facility] 02/10/2019 12:00:00 AM EST MYKEL NA ([facility]) Sharlene Ambrocio, CHIEF OPERATOR SYNTHESIS: [address], [place] [address], Ph. Attender: Sharlene Ambrocio [facility] 02/10/2019 12:00:00 AM EST MANANHugo NA ([facility]) Sharlene Ambrocio, CHIEF OPERATOR SYNTHESIS: [address], [place] [address], Ph. Att[facility]: [facility] 02/10/2019 12:00:00 AM EST MYKEL NA ([facility]) Sharlene Ambrocio, CHIEF OPERATOR SYNTHESIS: [address], [place] [address], Ph. Attender: Sharlene Ambrocio [facility] 02/10/2019 12:00:00 AM EST MANANHugo NA ([facility]) Sharlene Ambrocio, CHIEF OPERATOR SYNTHESIS: [address], [place] [address], Ph. [facility]: [facility] 02/10/2019 12:00:00 AM EST MYKEL NA ([facility]) Medications Medication Brand Name Start Date Product Form Dose Route Admi nistrative Instructions Pharmacy Instructions Status Indications Reaction Description Data Source(s) methylprednisolone 4 mg tablets in a dose pack 914848 completed methylprednisolone 4 mg tablets in a dose pack JULISA ([facility]) methylprednisolone 4 mg tablets in a dose pack 059262 completed methylprednisolone 4 mg tablets in a dose pack JULISA ([facility]) methylprednisolone 4 mg tablets in a dose pack 021647 completed methylprednisolone 4 mg tablets in a dose pack JULISA ([facility]) Ibuprofen 800 MG Oral Tablet ibuprofen 800 mg tablet ibuprofen 8 00 mg tablet completed ibuprofen 800 MG Oral Tablet JULISA ([facility]) methylprednisolone 4 mg tablets in a dose pack 969241 completed methylprednisolone 4 mg tablets in a dose pack JULISA ([facility]) Cyclobenzaprine hydrochloride 10 MG Oral Tablet cyclobenzaprine 10 mg tablet as needed cyclobenzaprine 10 mg tablet as needed completed cyclobenzaprine hydrochloride 10 MG Oral Tablet JULISA ([facility]) Ibuprofen 800 MG Oral Tablet ibuprofen 800 mg tablet ibuprofen 8 00 mg tablet completed ibuprofen 800 MG Oral Tablet JULISA ([facility]) methylprednisolone 4 mg tablets in a dose pack 270914 completed methylprednisolone 4 mg tablets in a dose pack JULISA ([facility]) Ibuprofen 800 MG Oral Tablet ibuprofen 800 mg tablet ibuprofen 8 00 mg tablet completed ibuprofen 800 MG Oral Tablet JULISA ([facility]) methylprednisolone 4 mg tablets in a dose pack 056688 completed methylprednisolone 4 mg tablets in a dose pack JULISA ([facility]) Cyclobenzaprine hydrochloride 10 MG Oral Tablet cyclobenzaprine 10 mg tablet as needed cyclobenzaprine 10 mg tablet as needed completed cyclobenzaprine hydrochloride 10 MG Oral Tablet JULISA ([facility]) methylprednisolone 4 mg tablets in a dose pack 935027 completed methylprednisolone 4 mg tablets in a dose pack JULISA ([facility]) Cyclobenzaprine hydrochloride 10 MG Oral Tablet cyclobenzaprine 10 mg tablet as needed cyclobenzaprine 10 mg tablet as needed completed cyclobenzaprine hydrochloride 10 MG Oral Tablet JULISA ([facility]) methylprednisolone 4 mg tablets in a dose pack 935385 completed methylprednisolone 4 mg tablets in a dose pack JULISA ([facility]) Insurance Providers Payer name Policy type / Coverage type Policy ID Covered constitution party ID Covered constitution party's relationship to hernandez Policy Hernandez Plan Information [facility] [id number] SP [id number] 200 [facility] [id number] MEDICAID [id number] SP [id number] [facility] [id number] ANSI-Commercial [id number] ANSI-Commercial [id number] ANSI-Commercial [id number] ANSI-Commercial [id number] ANSI-Medicaid [id number] ANSI-Commercial [id number] ANSI-Commercial [id number] ANSI-Medicaid [id number] ANSI-Commercial [id number] ANSI-Commercial [id number] ANSI-Commercial [id number] ANSI-Commercial [id number] ANSI-Commercial [id number] ANSI-Medicaid [id number] ANSI-Commercial [id number] ANSI-Commercial [id number]-[id number] ANSI-Commercial [id number]-[id number]-[id number]-[id number] ANSI-Medicaid [id number] ANSI-Commercial [id number] ANSI-Medicaid [id number] ANSI-Commercial [id number] ANSI-Commercial [id number] ANSI-Commercial [id number]-[id number] [facility] [id number] [facility] [id number] [facility] [id number] ANSI-Commercial [id number] ANSI-Medicaid [id number] ANSI-Commercial [id number]-1yhl-o118-[id number] ANSI-Commercial [id number]-qu2p-[id number] [id number]-dd0g-[id number] ANSI-Commercial [id number]-[id number] ANSI-Commercial [id number] ANSI-Medicaid [id number] ANSI-Commercial [id number] ANSI-Gigalo [id number] ANSI-Commercial [id number] ANSI-Gigalo [id number] [employer]io[employer]-Medicaid [id number] [employer] [id number]-[id number]-[id number] [employer] [id number]-[id number] ANSI-Gigalo [id number] ANSI-Medicaid [id number] ANSI-Commercial [id number] ANSI-Commercial [id number]-[id number] ANSI-Commercial [id number] ANSI-Medicaid [id number] ANSI-Commercial [id number] ANSI-Medicaid [id number] ANSI-Commercial [id number]-[id number]-[id number] ANSI-Commercial 1pykrmav-[id number]-[id number] ANSI-Medicaid [id number] ANSI-Commercial [id number] ANSI-Commercial [id number] ANSI-Commercial [id number]-[id number]-[id number] KAYA [id number] SP [id number] 200 KAYA I [id number] Self [id number] 200 KAYA [facility] [id number] 18 [id number] KAYA I [id number] Self [id number] 200 VERÓNICA RITCHIE WORKER COMP [id number] SP [id number] [facility] SHIELD-O/P [id number] [facility] [id number] Surgeries/Procedures Procedure Description Date Indications Data Source(s) Needle electromyography, each extremity, with related paraspinal areas, when performed, done with nerve conduction, amplitude and latency/velocity study; complete, five or more muscles studied, innervated by three or more nerves or four or more spinal levels (list separately in addition to the code for primary procedure). 04/14/2019 12:00:00 AM EST MEDEN T ([facility]) Nerve Conduction 9-10 Studies 04/14/2019 12:00:[address] MEDENT ([facility]) Results ID Date Data Source [id number] 11/09/2019 12:00:00 AM EDT JULISA ([facility]) Name Value Range Interpretation Code Description Data Emily rce(s) Supporting Document(s) ID Date Data Source [id number] 11/09/2019 12:00:00 AM EDT JULISA ([facility]) Name Value Range Interpretation Code Description Data Emily rce(s) Supporting Document(s) ID Date Data Source [id number] 11/09/2019 12:00:00 AM EDT JULISA ([facility]) Name Value Range Interpretation Code Description Data Emily rce(s) Supporting Document(s) ID Date Data Source [id number] 11/09/2019 12:00:00 AM EDT JULISA ([facility]) Name Value Range Interpretation Code Description Data Emily rce(s) Supporting Document(s) ID Date Data Source [id number] 11/09/2019 12:00:00 AM EDT JULISA ([facility]) Name Value Range Interpretation Code Description Data Emily rce(s) Supporting Document(s) ID Date Data Source [id number] 11/09/2019 12:00:00 AM EDT JULISA ([facility]) Name Value Range Interpretation Code Description Data Emily rce(s) Supporting Document(s) ID Date Data Source [id number] 11/09/2019 12:00:00 AM EDT [facility] Name Value Range Interpretation Code Description Data Emily rce(s) Supporting Document(s) SARS-CoV-2 [facility] This lab was ordered by [facility]-COVID19 and reported by [facility]. ID Date Data Source [id number] 08/28/2019 12:00:00 AM EDT JULISA ([facility]) Name Value Range Interpretation Code Description Data Emily rce(s) Supporting Document(s) ID Date Data Source [id number] 08/28/2019 12:00:00 AM EDT JULISA ([facility]) Name Value Range Interpretation Code Description Data Emily rce(s) Supporting Document(s) ID Date Data Source [id number] 08/28/2019 12:00:00 AM EDT JULISA ([facility]) Name Value Range Interpretation Code Description Data Emily rce(s) Supporting Document(s) ID Date Data Source [id number] 08/28/2019 12:00:00 AM EDT JULISA ([facility]) Name Value Range Interpretation Code Description Data Emily rce(s) Supporting Document(s) ID Date Data Source [id number] 08/28/2019 12:00:00 AM EDT JULISA ([facility]) Name Value Range Interpretation Code Description Data Emily rce(s) Supporting Document(s) ID Date Data Source [id number] 08/28/2019 12:00:00 AM EDT JULISA ([facility]) Name Value Range Interpretation Code Description Data Emily rce(s) Supporting Document(s) ID Date Data Source [id number] 08/28/2019 12:00:00 AM EDT JULISA ([facility]) Name Value Range Interpretation Code Description Data Emily rce(s) Supporting Document(s) ID Date Data Source [id number] 08/28/2019 12:00:00 AM EDT JULISA ([facility]) Name Value Range Interpretation Code Description Data Emily rce(s) Supporting Document(s) ID Date Data Source [id number] 08/28/2019 12:00:00 AM EDT JULISA ([facility]) Name Value Range Interpretation Code Description Data Emily rce(s) Supporting Document(s) ID Date Data Source [id number] 08/28/2019 12:00:00 AM EDT [facility] Name Value Range Interpretation Code Description Data Emily rce(s) Supporting Document(s) SARS-CoV-2 [facility] This lab was ordered by [facility] [facility] and reported by [facility]. ID Date Data Source [id number] 08/28/2019 12:00:00 AM EDT JULISA ([facility]) Name Value Range Interpretation Code Description Data Emily rce(s) Supporting Document(s) ID Date Data Source [id number] 08/06/2019 12:00:00 AM EDT JULISA ([facility]) Name Value Range Interpretation Code Description Data Emily rce(s) Supporting Document(s) ID Date Data Source [id number] 08/06/2019 12:00:00 AM EDT JULISA ([facility]) Name Value Range Interpretation Code Description Data Emily rce(s) Supporting Document(s) ID Date Data Source [id number] 08/06/2019 12:00:00 AM EDT JULISA ([facility]) Name Value Range Interpretation Code Description Data Emily rce(s) Supporting Document(s) ID Date Data Source [id number] 08/06/2019 12:00:00 AM EDT JULISA ([facility]) Name Value Range Interpretation Code Description Data Emily rce(s) Supporting Document(s) ID Date Data Source [id number] 08/06/2019 12:00:00 AM EDT JULISA ([facility]) Name Value Range Interpretation Code Description Data Emily rce(s) Supporting Document(s) ID Date Data Source [id number] 08/06/2019 12:00:00 AM EDT JULISA ([facility]) Name Value Range Interpretation Code Description Data Emily rce(s) Supporting Document(s) ID Date Data Source [id number] 08/06/2019 12:00:00 AM EDT JULISA ([facility]) Name Value Range Interpretation Code Description Data Emily rce(s) Supporting Document(s) ID Date Data Source [id number] 08/06/2019 12:00:00 AM EDT JULISA ([facility]) Name Value Range Interpretation Code Description Data Emily rce(s) Supporting Document(s) ID Date Data Source [id number] 08/06/2019 12:00:00 AM EDT JULISA ([facility]) Name Value Range Interpretation Code Description Data Emily rce(s) Supporting Document(s) ID Date Data Source [id number] 08/06/2019 12:00:00 AM EDT JULISA ([facility]) Name Value Range Interpretation Code Description Data Emily rce(s) Supporting Document(s) ID Date Data Source [id number] 08/06/2019 12:00:00 AM EDT JULISA ([facility]) Name Value Range Interpretation Code Description Data Emily rce(s) Supporting Document(s) ID Date Data Source [id number] 08/06/2019 12:00:00 AM EDT [facility] Name Value Range Interpretation Code Description Data Emily rce(s) Supporting Document(s) SARS-CoV-2 [facility] This lab was ordered by [facility] [facility] and reported by [facility]. ID Date Data Source [id number] 08/06/2019 12:00:00 AM EDT JULISA ([facility]) Name Value Range Interpretation Code Description Data Emily rce(s) Supporting Document(s) Procedure Vital Signs ID Date Data Source [id number] Name Value Range Interpretation Code Description Data Source(s) Body height 72 [in_i] 72 [in_i] JULISA ([facility]) Body height 72 [in_i] 72 [in_i] JULISA ([facility]) Body height 72 [in_i] 72 [in_i] JULISA ([facility]) Body height 72 [in_i] 72 [in_i] UJLISA ([facility]) Body height 72 [in_i] 72 [in_i] JULISA ([facility]) Body height 72 [in_i] 72 [in_i] JULISA ([facility]) Body height 72 [in_i] 72 [in_i] JULISA ([facility]) Body height 72 [in_i] 72 [in_i] JULISA ([facility]) Body height 72 [in_i] 72 [in_i] JULISA ([facility]) Body height 72 [in_i] 72 [in_i] JULISA ([facility]) Body height 72 [in_i] 72 [in_i] JULISA ([facility]) Body height 72 [in_i] 72 [in_i] JULISA ([facility]) Body height 72 [in_i] 72 [in_i] JULISA ([facility]) Body height 72 [in_i] 72 [in_i] JULISA ([facility]) Body height 72 [in_i] 72 [in_i] JULISA ([facility]) Body height 72 [in_i] 72 [in_i] JULISA ([facility]) Body height 72 [in_i] 72 [in_i] JULISA ([facility]) Body height 72 [in_i] 72 [in_i] JULISA ([facility]) Body height 72 [in_i] 72 [in_i] JULISA ([facility]) Body height 72 [in_i] 72 [in_i] JULISA ([facility]) Body height 72 [in_i] 72 [in_i] JULISA ([facility]) Systolic blood pressure 126 mm[Hg] 126 mm[Hg] A THENA ([facility]) Body height 72 [in_i] 72 [in_i] JULISA ([facility]) Diastolic blood pressure 81 mm[Hg] 81 mm[Hg] JULISA ([facility]) Systolic blood pressure 126 mm[Hg] 126 mm[Hg] A THENA ([facility]) Body height 72 [in_i] 72 [in_i] JULISA ([facility]) Diastolic blood pressure 81 mm[Hg] 81 mm[Hg] JULISA ([facility]) Systolic blood pressure 126 mm[Hg] 126 mm[Hg] A THENA ([facility]) Body height 72 [in_i] 72 [in_i] JULISA ([facility]) Diastolic blood pressure 81 mm[Hg] 81 mm[Hg] JULISA ([facility]) Systolic blood pressure 126 mm[Hg] 126 mm[Hg] A THENA ([facility]) Body height 72 [in_i] 72 [in_i] JULISA ([facility]) Diastolic blood pressure 81 mm[Hg] 81 mm[Hg] JULISA ([facility]) Systolic blood pressure 126 mm[Hg] 126 mm[Hg] A THENA ([facility]) Body height 72 [in_i] 72 [in_i] JULISA ([facility]) Diastolic blood pressure 81 mm[Hg] 81 mm[Hg] JLUISA ([facility]) Systolic blood pressure 126 mm[Hg] 126 mm[Hg] A THENA ([facility]) Body height 72 [in_i] 72 [in_i] JULISA ([facility]) Diastolic blood pressure 81 mm[Hg] 81 mm[Hg] JULISA ([facility]) Systolic blood pressure 126 mm[Hg] 126 mm[Hg] A THENA ([facility]) Body height 72 [in_i] 72 [in_i] JULISA ([facility]) Diastolic blood pressure 81 mm[Hg] 81 mm[Hg] JULISA ([facility]) Systolic blood pressure 126 mm[Hg] 126 mm[Hg] A THENA ([facility]) Body height 72 [in_i] 72 [in_i] JULISA ([facility]) Diastolic blood pressure 81 mm[Hg] 81 mm[Hg] JULISA ([facility]) Systolic blood pressure 126 mm[Hg] 126 mm[Hg] A THENA ([facility]) Body height 72 [in_i] 72 [in_i] JULISA ([facility]) Diastolic blood pressure 81 mm[Hg] 81 mm[Hg] JULISA ([facility]) Systolic blood pressure 126 mm[Hg] 126 mm[Hg] A THENA ([facility]) Body height 72 [in_i] 72 [in_i] JULISA ([facility]) Diastolic blood pressure 81 mm[Hg] 81 mm[Hg] JULISA ([facility]) Systolic blood pressure 126 mm[Hg] 126 mm[Hg] A THENA ([facility]) Body height 72 [in_i] 72 [in_i] JULISA ([facility]) Diastolic blood pressure 81 mm[Hg] 81 mm[Hg] JULISA ([facility]) Systolic blood pressure 126 mm[Hg] 126 mm[Hg] A THENA ([facility]) Body height 72 [in_i] 72 [in_i] JULISA ([facility]) Diastolic blood pressure 81 mm[Hg] 81 mm[Hg] JULISA ([facility]) Systolic blood pressure 126 mm[Hg] 126 mm[Hg] A THENA ([facility]) Body height 72 [in_i] 72 [in_i] JULISA ([facility]) Diastolic blood pressure 81 mm[Hg] 81 mm[Hg] JULISA ([facility]) Systolic blood pressure 126 mm[Hg] 126 mm[Hg] A THENA ([facility]) Body height 72 [in_i] 72 [in_i] JULISA ([facility]) Diastolic blood pressure 81 mm[Hg] 81 mm[Hg] JULISA ([facility]) Systolic blood pressure 126 mm[Hg] 126 mm[Hg] A THENA ([facility]) Body height 72 [in_i] 72 [in_i] JULISA ([facility]) Diastolic blood pressure 81 mm[Hg] 81 mm[Hg] JULISA ([facility]) Systolic blood pressure 126 mm[Hg] 126 mm[Hg] A THENA ([facility]) Body height 72 [in_i] 72 [in_i] JULISA ([facility]) Diastolic blood pressure 81 mm[Hg] 81 mm[Hg] JULISA ([facility]) Systolic blood pressure 126 mm[Hg] 126 mm[Hg] A THENA ([facility]) Body height 72 [in_i] 72 [in_i] JULISA ([facility]) Diastolic blood pressure 81 mm[Hg] 81 mm[Hg] JULISA ([facility]) Body mass index (BMI) [Ratio] 55.6 kg/m2 55.6 k g/m2 MEDENT ([facility]) Body weight 399.00 [lb_av] 399.00 [lb_av] MEDEN T ([facility]) Body height 71 [in_i] 71 [in_i] MEDENT ([facility]) 5'11" Body temperature 98.2 [degF] 98.2 [degF] MEDENT ([facility] ) Systolic blood pressure 140 mm[Hg] 140 mm[Hg] A THENA ([facility]) Body height 72 [in_i] 72 [in_i] JULISA ([facility]) Diastolic blood pressure 90 mm[Hg] 90 mm[Hg] JULISA ([facility]) Systolic blood pressure 140 mm[Hg] 140 mm[Hg] A THENA ([facility]) Body height 72 [in_i] 72 [in_i] JULISA ([facility]) Diastolic blood pressure 90 mm[Hg] 90 mm[Hg] JULISA ([facility]) Systolic blood pressure 140 mm[Hg] 140 mm[Hg] A THENA ([facility]) Body height 72 [in_i] 72 [in_i] JULISA ([facility]) Diastolic blood pressure 90 mm[Hg] 90 mm[Hg] JULISA ([facility]) Systolic blood pressure 140 mm[Hg] 140 mm[Hg] A THENA ([facility]) Body height 72 [in_i] 72 [in_i] JULISA ([facility]) Diastolic blood pressure 90 mm[Hg] 90 mm[Hg] JULISA ([facility]) Systolic blood pressure 140 mm[Hg] 140 mm[Hg] A THENA ([facility]) Body height 72 [in_i] 72 [in_i] JULISA ([facility]) Diastolic blood pressure 90 mm[Hg] 90 mm[Hg] JULISA ([facility]) Systolic blood pressure 140 mm[Hg] 140 mm[Hg] A THENA ([facility]) Body height 72 [in_i] 72 [in_i] JULISA ([facility]) Diastolic blood pressure 90 mm[Hg] 90 mm[Hg] JULISA ([facility]) Systolic blood pressure 140 mm[Hg] 140 mm[Hg] A THENA ([facility]) Body height 72 [in_i] 72 [in_i] JULISA ([facility]) Diastolic blood pressure 90 mm[Hg] 90 mm[Hg] JULISA ([facility]) Systolic blood pressure 140 mm[Hg] 140 mm[Hg] A THENA ([facility]) Body height 72 [in_i] 72 [in_i] JULISA ([facility]) Diastolic blood pressure 90 mm[Hg] 90 mm[Hg] JULISA ([facility]) Systolic blood pressure 140 mm[Hg] 140 mm[Hg] A THENA ([facility]) Body height 72 [in_i] 72 [in_i] JULISA ([facility]) Diastolic blood pressure 90 mm[Hg] 90 mm[Hg] JULISA ([facility]) Systolic blood pressure 140 mm[Hg] 140 mm[Hg] A THENA ([facility]) Body height 72 [in_i] 72 [in_i] JULISA ([facility]) Diastolic blood pressure 90 mm[Hg] 90 mm[Hg] JULISA ([facility]) Systolic blood pressure 140 mm[Hg] 140 mm[Hg] A THENA ([facility]) Body height 72 [in_i] 72 [in_i] JULISA ([facility]) Diastolic blood pressure 90 mm[Hg] 90 mm[Hg] JULISA ([facility]) Systolic blood pressure 140 mm[Hg] 140 mm[Hg] A THENA ([facility]) Body height 72 [in_i] 72 [in_i] JULISA ([facility]) Diastolic blood pressure 90 mm[Hg] 90 mm[Hg] JULISA ([facility]) Systolic blood pressure 140 mm[Hg] 140 mm[Hg] A THENA ([facility]) Body height 72 [in_i] 72 [in_i] JULISA ([facility]) Diastolic blood pressure 90 mm[Hg] 90 mm[Hg] JULISA ([facility]) Systolic blood pressure 140 mm[Hg] 140 mm[Hg] A THENA ([facility]) Body height 72 [in_i] 72 [in_i] JULISA ([facility]) Diastolic blood pressure 90 mm[Hg] 90 mm[Hg] JULISA ([facility]) Systolic blood pressure 140 mm[Hg] 140 mm[Hg] A THENA ([facility]) Body height 72 [in_i] 72 [in_i] JULISA ([facility]) Diastolic blood pressure 90 mm[Hg] 90 mm[Hg] JULISA ([facility]) Systolic blood pressure 140 mm[Hg] 140 mm[Hg] A THENA ([facility]) Body height 72 [in_i] 72 [in_i] JULISA ([facility]) Diastolic blood pressure 90 mm[Hg] 90 mm[Hg] JULISA ([facility]) Systolic blood pressure 140 mm[Hg] 140 mm[Hg] A THENA ([facility]) Body height 72 [in_i] 72 [in_i] JULISA ([facility]) Diastolic blood pressure 90 mm[Hg] 90 mm[Hg] JULISA ([facility]) Systolic blood pressure 140 mm[Hg] 140 mm[Hg] A THENA ([facility]) Body height 72 [in_i] 72 [in_i] JULISA ([facility]) Diastolic blood pressure 90 mm[Hg] 90 mm[Hg] JULISA ([facility]) Body weight 392 [lb_av] 392 [lb_av] JULISA ([facility]) Systolic blood pressure 150 mm[Hg] 150 mm[Hg] A THENA ([facility]) Body mass index (BMI) [Ratio] 53.2 kg/m2 53.2 k g/m2 JULISA ([facility]) Body height 72 [in_i] 72 [in_i] JULISA ([facility]) Diastolic blood pressure 73 mm[Hg] 73 mm[Hg] JULISA ([facility]) Body weight 392 [lb_av] 392 [lb_av] JULISA ([facility]) Systolic blood pressure 150 mm[Hg] 150 mm[Hg] A THENA ([facility]) Body mass index (BMI) [Ratio] 53.2 kg/m2 53.2 k g/m2 JULISA ([facility]) Body height 72 [in_i] 72 [in_i] JULISA ([facility]) Diastolic blood pressure 73 mm[Hg] 73 mm[Hg] JULISA ([facility]) Body weight 392 [lb_av] 392 [lb_av] JULISA ([facility]) Systolic blood pressure 150 mm[Hg] 150 mm[Hg] A THENA ([facility]) Body mass index (BMI) [Ratio] 53.2 kg/m2 53.2 k g/m2 JULISA ([facility]) Body height 72 [in_i] 72 [in_i] JULISA ([facility]) Diastolic blood pressure 73 mm[Hg] 73 mm[Hg] JULISA ([facility]) Body weight 392 [lb_av] 392 [lb_av] JULISA ([facility]) Systolic blood pressure 150 mm[Hg] 150 mm[Hg] A THENA ([facility]) Body mass index (BMI) [Ratio] 53.2 kg/m2 53.2 k g/m2 JULISA ([facility]) Body height 72 [in_i] 72 [in_i] JULISA ([facility]) Diastolic blood pressure 73 mm[Hg] 73 mm[Hg] JULISA ([facility]) Body weight 392 [lb_av] 392 [lb_av] JULISA ([facility]) Systolic blood pressure 150 mm[Hg] 150 mm[Hg] A THENA ([facility]) Body mass index (BMI) [Ratio] 53.2 kg/m2 53.2 k g/m2 JULISA ([facility]) Body height 72 [in_i] 72 [in_i] JULISA ([facility]) Diastolic blood pressure 73 mm[Hg] 73 mm[Hg] JULISA ([facility]) Body weight 392 [lb_av] 392 [lb_av] JULISA ([facility]) Systolic blood pressure 150 mm[Hg] 150 mm[Hg] A THENA ([facility]) Body mass index (BMI) [Ratio] 53.2 kg/m2 53.2 k g/m2 JULISA ([facility]) Body height 72 [in_i] 72 [in_i] JULISA ([facility]) Diastolic blood pressure 73 mm[Hg] 73 mm[Hg] JULISA ([facility]) Body weight 392 [lb_av] 392 [lb_av] JULISA ([facility]) Systolic blood pressure 150 mm[Hg] 150 mm[Hg] A THENA ([facility]) Body mass index (BMI) [Ratio] 53.2 kg/m2 53.2 k g/m2 JULISA ([facility]) Body height 72 [in_i] 72 [in_i] JULISA ([facility]) Diastolic blood pressure 73 mm[Hg] 73 mm[Hg] JULISA ([facility]) Body weight 392 [lb_av] 392 [lb_av] JULISA ([facility]) Systolic blood pressure 150 mm[Hg] 150 mm[Hg] A THENA ([facility]) Body mass index (BMI) [Ratio] 53.2 kg/m2 53.2 k g/m2 JULISA ([facility]) Body height 72 [in_i] 72 [in_i] JULISA ([facility]) Diastolic blood pressure 73 mm[Hg] 73 mm[Hg] JULISA ([facility]) Diastolic blood pressure 73 mm[Hg] 73 mm[Hg] JULISA ([facility]) Body weight 392 [lb_av] 392 [lb_av] JULISA ([facility]) Systolic blood pressure 150 mm[Hg] 150 mm[Hg] A THENA ([facility]) Body mass index (BMI) [Ratio] 53.2 kg/m2 53.2 k g/m2 JULISA ([facility]) Body height 72 [in_i] 72 [in_i] JULISA ([facility]) Diastolic blood pressure 73 mm[Hg] 73 mm[Hg] JULISA ([facility]) Body weight 392 [lb_av] 392 [lb_av] JULISA ([facility]) Systolic blood pressure 150 mm[Hg] 150 mm[Hg] A THENA ([facility]) Body mass index (BMI) [Ratio] 53.2 kg/m2 53.2 k g/m2 JULISA ([facility]) Body height 72 [in_i] 72 [in_i] JULISA ([facility]) Diastolic blood pressure 73 mm[Hg] 73 mm[Hg] JULISA ([facility]) Body weight 392 [lb_av] 392 [lb_av] JULISA ([facility]) Systolic blood pressure 150 mm[Hg] 150 mm[Hg] A THENA ([facility]) Body mass index (BMI) [Ratio] 53.2 kg/m2 53.2 k g/m2 JULISA ([facility]) Body height 72 [in_i] 72 [in_i] JULISA ([facility]) Diastolic blood pressure 73 mm[Hg] 73 mm[Hg] JULISA ([facility]) Body weight 392 [lb_av] 392 [lb_av] JULISA ([facility]) Systolic blood pressure 150 mm[Hg] 150 mm[Hg] A THENA ([facility]) Body mass index (BMI) [Ratio] 53.2 kg/m2 53.2 k g/m2 JULISA ([facility]) Body height 72 [in_i] 72 [in_i] JULISA ([facility]) Diastolic blood pressure 73 mm[Hg] 73 mm[Hg] JULISA ([facility]) Body weight 392 [lb_av] 392 [lb_av] JULISA ([facility]) Systolic blood pressure 150 mm[Hg] 150 mm[Hg] A THENA ([facility]) Body mass index (BMI) [Ratio] 53.2 kg/m2 53.2 k g/m2 JULISA ([facility]) Body height 72 [in_i] 72 [in_i] JULISA ([facility]) Diastolic blood pressure 73 mm[Hg] 73 mm[Hg] JULISA ([facility]) Body weight 392 [lb_av] 392 [lb_av] JULISA ([facility]) Systolic blood pressure 150 mm[Hg] 150 mm[Hg] A THENA ([facility]) Body mass index (BMI) [Ratio] 53.2 kg/m2 53.2 k g/m2 JULISA ([facility]) Body height 72 [in_i] 72 [in_i] JULISA ([facility]) Diastolic blood pressure 73 mm[Hg] 73 mm[Hg] JULISA ([facility]) Body weight 392 [lb_av] 392 [lb_av] JULISA ([facility]) Systolic blood pressure 150 mm[Hg] 150 mm[Hg] A THENA ([facility]) Body mass index (BMI) [Ratio] 53.2 kg/m2 53.2 k g/m2 JULISA ([facility]) Body height 72 [in_i] 72 [in_i] JULISA ([facility]) Diastolic blood pressure 73 mm[Hg] 73 mm[Hg] JULISA ([facility]) Body weight 392 [lb_av] 392 [lb_av] JULISA ([facility]) Systolic blood pressure 150 mm[Hg] 150 mm[Hg] A THENA ([facility]) Body mass index (BMI) [Ratio] 53.2 kg/m2 53.2 k g/m2 JULISA ([facility]) Body height 72 [in_i] 72 [in_i] JULISA ([facility]) Body weight 392 [lb_av] 392 [lb_av] JULISA ([facility]) Systolic blood pressure 150 mm[Hg] 150 mm[Hg] A THENA ([facility]) Body mass index (BMI) [Ratio] 53.2 kg/m2 53.2 k g/m2 JULISA ([facility]) Body height 72 [in_i] 72 [in_i] JULISA ([facility]) Diastolic blood pressure 73 mm[Hg] 73 mm[Hg] JULISA ([facility]) Body weight 392 [lb_av] 392 [lb_av] JULISA ([facility]) Systolic blood pressure 150 mm[Hg] 150 mm[Hg] A THENA ([facility]) Body mass index (BMI) [Ratio] 53.2 kg/m2 53.2 k g/m2 JULISA ([facility]) Body height 72 [in_i] 72 [in_i] JULISA ([facility]) Diastolic blood pressure 73 mm[Hg] 73 mm[Hg] JULISA ([facility]) Body weight 392 [lb_av] 392 [lb_av] JULISA ([facility]) Systolic blood pressure 150 mm[Hg] 150 mm[Hg] A THENA ([facility]) Body mass index (BMI) [Ratio] 53.2 kg/m2 53.2 k g/m2 JULISA ([facility]) Body height 72 [in_i] 72 [in_i] JULISA ([facility]) Diastolic blood pressure 73 mm[Hg] 73 mm[Hg] JULISA ([facility]) Patient Treatment Plan of Care Planned Activity Planned Date Details Description Data Source (s) methylprednisolone 4 mg tablets in a dose pack JULISA ([facility]) Ibuprofen 800 MG Oral Tablet JULISA ([facility]) Cyclobenzaprine hydrochloride 10 MG Oral Tablet JULISA ([facility]) methylprednisolone 4 mg tablets in a dose pack JULISA ([facility]) Ibuprofen 800 MG Oral Tablet JULISA ([facility]) Cyclobenzaprine hydrochloride 10 MG Oral Tablet JULISA ([facility]) methylprednisolone 4 mg tablets in a dose pack JULISA ([facility]) methylprednisolone 4 mg tablets in a dose pack JULISA ([facility]) methylprednisolone 4 mg tablets in a dose pack JULISA ([facility]) methylprednisolone 4 mg tablets in a dose pack JULISA ([facility]) Ibuprofen 800 MG Oral Tablet JULISA ([facility]) Cyclobenzaprine hydrochloride 10 MG Oral Tablet JULISA ([facility]) methylprednisolone 4 mg tablets in a dose pack JULISA ([facility]) methylprednisolone 4 mg tablets in a dose pack JULISA ([facility])
[2020-04-06] MEDS ORDERED: DULO1CAP6 (13:28)
[2020-04-06] MEDS ORDERED: LISI-542 (13:28)
[2020-04-06] MEDS ORDERED: BACL10TA2 (13:28)
[2020-04-06] MEDS ORDERED: BACL10TA2 PO (13:28)
--- OUTSIDE RECORDS SUMMARY | 2020-04-06 14:50 | CCD ---
Author Author [facility] Organization [facility] Address Unknown Phone Unavailable Care Team Providers Care Hourly Shift Manager Name Role Phone Alis Ambrocio Sharlene VIBRATOR EQUIPMENT TESTER Unavailable Unavailable Jumalon, M Sharlene VIBRATOR EQUIPMENT TESTER Unavailable Unavailable Jumalon, M Sharlene VIBRATOR EQUIPMENT TESTER Unavailable Unavailable Jumalon, M Sharlene VIBRATOR EQUIPMENT TESTER Unavailable Unavailable Jumalon, M Sharlene VIBRATOR EQUIPMENT TESTER Unavailable Unavailable Jumalon, M Sharlene VIBRATOR EQUIPMENT TESTER Unavailable Unavailable Jumalon, M Sharlene VIBRATOR EQUIPMENT TESTER Unavailable Unavailable Jumalon, M Sharlene VIBRATOR EQUIPMENT TESTER Unavailable Unavailable Jumalon, M Sharlene VIBRATOR EQUIPMENT TESTER Unavailable Unavailable Jumalon, M Sharlene VIBRATOR EQUIPMENT TESTER Unavailable Unavailable Jumalon, M Sharlene VIBRATOR EQUIPMENT TESTER Unavailable Unavailable Jumalon, M Sharlene VIBRATOR EQUIPMENT TESTER Unavailable Unavailable Jumalon, M Sharlene VIBRATOR EQUIPMENT TESTER Unavailable Unavailable Jumalon, M Sharlene VIBRATOR EQUIPMENT TESTER Unavailable Unavailable Jumalon, M Sharlene VIBRATOR EQUIPMENT TESTER Unavailable Unavailable Jumalon, M Sharlene VIBRATOR EQUIPMENT TESTER Unavailable Unavailable Jumalon, M Sharlene VIBRATOR EQUIPMENT TESTER Unavailable Unavailable Jumalon, M Sharlene VIBRATOR EQUIPMENT TESTER Unavailable Unavailable Jumalon, M Sharlene VIBRATOR EQUIPMENT TESTER Unavailable Unavailable Jumalon, M Sharlene VIBRATOR EQUIPMENT TESTER Unavailable Unavailable Jumalon, M Sharlene VIBRATOR EQUIPMENT TESTER Unavailable Unavailable Jumalon, M Sharlene VIBRATOR EQUIPMENT TESTER Unavailable Unavailable Jumalon, M Sharlene VIBRATOR EQUIPMENT TESTER Unavailable Unavailable Jumalon, M Sharlene VIBRATOR EQUIPMENT TESTER Unavailable Unavailable Jumalon, M Sharlene VIBRATOR EQUIPMENT TESTER Unavailable Unavailable Jumalon, M Sharlene VIBRATOR EQUIPMENT TESTER Unavailable Unavailable Jumalon, M Sharlene VIBRATOR EQUIPMENT TESTER Unavailable Unavailable Jumalon, M Sharlene VIBRATOR EQUIPMENT TESTER Unavailable Unavailable MCELHERAN, JHONNY PA Unavailable Unavailable [...] is protected by Article 27-F of the [facility] Public Health law. If you continue you may have access to information: Regarding HIV / AIDS; Provided by facilities licensed or operated by the [facility] Office of Mental Health; or Provided by the [facility] Office for People With Developmental Disabilities. If such information is present, then the following [facility] mandated warning applies: This information has been [...] law may result in a fine or retirement sentence or both. A general authorization for the release of medical or other information is NOT sufficient authorization for further disc losure. Encounters Encounter Providers Location Date Indications Data Source(s ) Sharlene Ambrocio, DIRECTOR OF CURRICULUM AND INSTRUCTION: [address], [place] [address], Ph. Attender: Sharlene Ambrocio [facility] 03/28/2020 12:00:00 AM EST ATHE NA ([facility]) Sharlene Ambrocio, DIRECTOR OF CURRICULUM AND INSTRUCTION: [address], [place] [address], Ph. Attender: Sharlene Ambrocio [facility] 02/17/2020 12:00:00 AM EST ATHE NA ([facility]) Unknown [address] [facility], [place] [address] 02/17/2020 12:00:00 AM EST [facility] ([facility]) Sharlene Ambrocio, DIRECTOR OF CURRICULUM AND INSTRUCTION: [address], [place] [address], Ph. Attender: Sharlene Ambrocio [facility] 02/17/2020 12:00:00 AM EST ATHE NA ([facility]) Sharlene Ambrocio, DIRECTOR OF CURRICULUM AND INSTRUCTION: [address], [place] [address], Ph. Attender: Sharlene Ambrocio [facility] 01/26/2020 12:00:00 AM EST ATHE NA ([facility]) Sharlene Ambrocio, DIRECTOR OF CURRICULUM AND INSTRUCTION: [address], [place] [address], Ph. Attender: Sharlenehugo Ambrocio [facility] 01/26/2020 12:00:00 AM EST ATHE NA ([facility]) Sharlene Bates Simbayesi, DIRECTOR OF CURRICULUM AND INSTRUCTION: [address], [place] [address], Ph. Attender: Sharlene Ambrocio [facility] - [facility] 01/26/2020 12:00:00 AM EST ATHE NA ([facility]) Unknown [address] [facility], [place] [address] 01/11/2020 12:00:00 AM EDT eC ([facility]) Sharlene Waggonermalinasuzanna Joyvamshi, DIRECTOR OF CURRICULUM AND INSTRUCTION: [address], [place] [address], Ph. Attender: Sharlene Ambrocio [facility] - [facility] 12/29/2019 12:00:00 AM EDT ATHE NA ([facility]) Sharlene Ambrocio, DIRECTOR OF CURRICULUM AND INSTRUCTION: [address], [place] [address], Ph. Attender: Sharlene Ambrocio [facility] - [facility] 12/29/2019 12:00:00 AM EDT ATHE NA ([facility]) Sharlene Ambrocio, DIRECTOR OF CURRICULUM AND INSTRUCTION: [address], [place] [address], Ph. Attender: Sharlene Ambrocio [facility] - [facility] 12/29/2019 12:00:00 AM EDT ATHE NA ([facility]) Sharlene Ambrocio, DIRECTOR OF CURRICULUM AND INSTRUCTION: [address], [place] [address], Ph. Attender: Sharlene Ambrocio [facility] - [facility] 12/29/2019 12:00:00 AM EDT ATHE NA ([facility]) Sharlene Ambrocio, DIRECTOR OF CURRICULUM AND INSTRUCTION: [address], [address], [place] [address], Ph. Attender: Sharlene Ambrocio [facility] - [facility] 11/26/2019 12:00:00 AM EDT ATHE NA ([facility]) Sharlene Ambrocio, DIRECTOR OF CURRICULUM AND INSTRUCTION: [address], [address], [place] [address], Ph. Attender: Sharlene Ambrocio [facility] - [facility] 11/26/2019 12:00:00 AM EDT ATHE NA ([facility]) Sharlene Ambrocio, DIRECTOR OF CURRICULUM AND INSTRUCTION: [address], [place] [address], Ph. Attender: Sharlene Ambrocio [facility] - [facility] 11/26/2019 12:00:00 AM EDT ATHE NA ([facility]) Sharlene Ambrocio, DIRECTOR OF CURRICULUM AND INSTRUCTION: [address], [address], [place] [address], Ph. Attender: Sharlene Ambrocio [facility] - [facility] 11/26/2019 12:00:00 AM EDT ATHE NA ([facility]) Sharlene Ambrocio, DIRECTOR OF CURRICULUM AND INSTRUCTION: [address], [address], [place] [address], Ph. Attender: Sharlene Ambrocio [facility] - [facility] 11/26/2019 12:00:00 AM EDT ATHE NA ([facility]) Tyrone Beach MD: [address], [address], [place] [address], Ph. Attender: Tyrone Beach MD [place] - [facility] 11/12/2019 12:00:00 AM EDT JULISA ([facility]) Tyrone Beach MD: [address], [address], [place] [address], Ph. Attender: Tyrone POWER - [facility] 11/12/2019 12:00:00 AM EDT JULISA ([facility]) Tyrone Beach MD: [address], [address], [place] [address], Ph. Attender: Tyrone POWER - [facility] 11/12/2019 12:00:00 AM EDT JULISA ([facility]) Tyrone Beach MD: [address], [address], [place] [address], Ph. Attender: Tyrone POWER - [facility] 11/12/2019 12:00:00 AM EDT JULISA ([facility]) Tyrone Beach MD: [address], [address], [place] [address], Ph. Attender: Tyrone POWER - [facility] 11/12/2019 12:00:00 AM EDT JULISA ([facility]) Tyrone Beach MD: [address], [address], [place] [address], Ph. Attender: Tyrone POWER - [facility] 11/12/2019 12:00:00 AM EDT JULISA ([facility]) Tyrone Beach MD: [address], [address], [place] [address], Ph. [phone] Attender: Tyrone [place] MD [place] - [facility] 11/09/2019 12:00:00 AM EDT JULISA ([facility]) Tyrone Beach MD: [address], [address], [place] [address], Ph. [phone] Attender: Tyrone [place] MD [place] - [facility] 11/09/2019 12:00:00 AM EDT JULISA ([facility]) Tyrone Beach MD: [address], [address], [place] [address], Ph. [phone] Attender: Tyrone [place] MD [place] - [facility] 11/09/2019 12:00:00 AM EDT JULISA ([facility]) Tyrone Beach MD: [address], [address], [place] [address], Ph. [phone] Attender: Tyrone [place] MD [place] - [facility] 11/09/2019 12:00:00 AM EDT JULISA ([facility]) Tyrone Beach MD: [address], [address], [place] [address], Ph. [phone] Attender: Tyrone [place] MD [place] - [facility] - [facility] 11/09/2019 12:00:00 AM EDT JULISA ([facility]) Tyrone Beach MD: [address], [address], [place] [address], Ph. [phone] Attender: Tyrone [place] MD [place] - [facility] 11/09/2019 12:00:00 AM EDT JULISA ([facility]) Tyrone Beach MD: [address], [address], [place] [address], Ph. [phone] Attender: Tyrone [place] MD [place] - [facility] 11/09/2019 12:00:00 AM EDT JULISA ([facility]) Sharlene Ambrocio, DIRECTOR OF CURRICULUM AND INSTRUCTION: [address], [address], [place] [address], Ph. Attender: Sharlene Ambrocio [facility] - [facility] 11/02/2019 12:00:00 AM EDT ATHE NA ([facility]) Sharlene Ambrocio, DIRECTOR OF CURRICULUM AND INSTRUCTION: [address], [address], [place] [address], Ph. Attender: Sharlene Ambrocio [facility] - [facility] 11/02/2019 12:00:00 AM EDT ATHE NA ([facility]) Sharlene Ambrocio, DIRECTOR OF CURRICULUM AND INSTRUCTION: [address], [place] [address], Ph. Attender: Sharlene Ambrocio [facility] - [facility] 11/02/2019 12:00:00 AM EDT ATHE NA ([facility]) Sharlene Ambrocio, DIRECTOR OF CURRICULUM AND INSTRUCTION: [address], [place] [address], Ph. Attender: Sharlene Ambrocio [facility] - [facility] 11/02/2019 12:00:00 AM EDT ATHE NA ([facility]) Sharlene Ambrocio, DIRECTOR OF CURRICULUM AND INSTRUCTION: [address], [address], [place] [address], Ph. Attender: Sharlene Ambrocio [facility] - [facility] 11/02/2019 12:00:00 AM EDT ATHE NA ([facility]) Sharlene Ambrocio, DIRECTOR OF CURRICULUM AND INSTRUCTION: [address], [address], [place] [address], Ph. Attender: Sharlenetiesha Hamiltonchapitoyesi [facility] - [facility] 11/02/2019 12:00:00 AM EDT ATHE NA ([facility]) Sharlene Ambrocio, DIRECTOR OF CURRICULUM AND INSTRUCTION: [address], [place] [address], Ph. Attender: Sharlene Ambrocio [facility] - [facility] 11/02/2019 12:00:00 AM EDT ATHE NA ([facility]) Sharlene Ambrocio, DIRECTOR OF CURRICULUM AND INSTRUCTION: [address], [address], [place] [address], Ph. Attender: Sharlene Ambrocio [facility] - [facility] 11/02/2019 12:00:00 AM EDT ATHE NA ([facility]) Sharlene Ambrocio, DIRECTOR OF CURRICULUM AND INSTRUCTION: [address], [address], [place] [address], Ph. Attender: Sharlene Ambrocio [facility] - [facility] 09/21/2019 12:00:00 AM EDT ATHE NA ([facility]) Sharlene Ambrocio, DIRECTOR OF CURRICULUM AND INSTRUCTION: [address], [address], [place] [address], Ph. Attender: Sharlene Ambrocio [facility] - [facility] 09/21/2019 12:00:00 AM EDT ATHE NA ([facility]) Sharlene Ambrocio, DIRECTOR OF CURRICULUM AND INSTRUCTION: [address], [address], [place] [address], Ph. Attender: Sharlene Ambrocio [facility] - [facility] 09/21/2019 12:00:00 AM EDT ATHE NA ([facility]) Sharlene Bates Joychapitoyesi, DIRECTOR OF CURRICULUM AND INSTRUCTION: [address], [address], [place] [address], Ph. Attender: Sharlene Ambrocio [facility] - [facility] 09/21/2019 12:00:00 AM EDT ATHE NA ([facility]) Sharlene Ambrocio, DIRECTOR OF CURRICULUM AND INSTRUCTION: [address], [place] [address], Ph. Attender: Sharlene Ambrocio [facility] - [facility] 09/21/2019 12:00:00 AM EDT ATHE NA ([facility]) Sharlene Ambrocio, DIRECTOR OF CURRICULUM AND INSTRUCTION: [address], [place] [address], Ph. Attender: Sharlene Ambrocio [facility] - [facility] 09/21/2019 12:00:00 AM EDT ATHE NA ([facility]) Sharlene Ambrocio, DIRECTOR OF CURRICULUM AND INSTRUCTION: [address], [place] [address], Ph. Attender: Sharlene Ambrocio [facility] - [facility] 09/21/2019 12:00:00 AM EDT ATHE NA ([facility]) Sharlene Ambrocio, DIRECTOR OF CURRICULUM AND INSTRUCTION: [address], [place] [address], Ph. Attender: Sharlene Ambrocio [facility] - [facility] 09/21/2019 12:00:00 AM EDT ATHE NA ([facility]) Sharlene Ambrocio, DIRECTOR OF CURRICULUM AND INSTRUCTION: [address], [place] [address], Ph. Attender: Sharlene Ambrocio [facility] - [facility] 09/21/2019 12:00:00 AM EDT ATHE NA ([facility]) Unknown [address] [facility], [facility] [address] 09/11/2019 12:00:00 AM EDT eCW1 ([facility]) Outpatient Attender: Sally Johnson Danni [facility] 09/01/2019 07:45:[address] [facility] Tyrone Beach MD: [address], [place] [address], Ph. Attender: Tyrone POWER - [facility] - [facility] 08/31/2019 12:00:00 AM EDT JULISA ([facility]) Tyrone eBach MD: [address]12 [address], [place] [address], Ph. Attender: Tyrone PWOER - [facility] 08/31/2019 12:00:00 AM EDT JULISA ([facility]) Tyrone Beach MD: [address], [place] [address], Ph. Attender: Tyrone POWER - [facility] 08/31/2019 12:00:00 AM EDT JULISA ([facility]) Tyrone Beach MD: [address]60 [address], [place] [address], Ph. Attender: Tyrone POWER - [facility] 08/31/2019 12:00:00 AM EDT JULISA ([facility]) Tyrone Beach MD: [address], [place] [address], Ph. Attender: Tyrone POWER - [facility] 08/31/2019 12:00:00 AM EDT UJLISA ([facility]) Tyrone Beach MD: [address]16 [address], [address], [place] [address], Ph. Attender: Tyrone Beach MD [place] - [facility] 08/31/2019 12:00:00 AM EDT JULISA ([facility]) Tyrone Beach MD: [address]93 [address], [address], [place] [address], Ph. Attender: Tyrone [place] MD [place] - [facility] 08/31/2019 12:00:00 AM EDT JULISA ([facility]) Tyrone Beach MD: [address]244 [address], [address], [place] [address], Ph. Attender: Tyrone [place] MD [place] - [facility] 08/31/2019 12:00:00 AM EDT JULISA ([facility]) Tyrone Beach MD: [address]73 [address], [address], [place] [address], Ph. Attender: Tyrone [place] MD [place] - [facility] 08/31/2019 12:00:00 AM EDT JULISA ([facility]) Tyrone Beach MD: [address]907 [address], [place] [address], Ph. Attender: Tyrone [place] MD [place] - [facility] 08/31/2019 12:00:00 AM EDT JULISA ([facility]) Tyrone Beach MD: [address]69 [address], [place] [address], Ph. [phone] Attender: Tyrnoe Beach MD [place] - [facility] 08/28/2019 12:00:00 AM EDT JULISA ([facility]) Tyrone Beach MD: [address], [address], [place] [address], Ph. [phone] Attender: Tyrone [place] MD [place] - [facility] 08/28/2019 12:00:00 AM EDT JULISA ([facility]) Tyrone Beach MD: [address]13 [address], [address], [place] [address], Ph. [phone] Attender: Tyrone [place] MD [place] - [facility] 08/28/2019 12:00:00 AM EDT JULISA ([facility]) Tyrone Beach MD: [address]36 [address], [address], [place] [address], Ph. [phone] Attender: Tyrone [place] MD [place] - [facility] 08/28/2019 12:00:00 AM EDT JULISA ([facility]) Tyrone Beach MD: [address]33 [address], [address], [place] [address], Ph. [phone] Attender: [place]one [place] MD [place] - [facility] 08/28/2019 12:00:00 AM EDT JULISA ([facility]) Tyrone Beach MD: [address]69 [address], [address], [place] [address], Ph. [phone] Attender: Tyrone [place] MD [place] - [facility] 08/28/2019 12:00:00 AM EDT JULISA ([facility]) Tyrone Beach MD: 95353 [address], [address], [place] [address], Ph. [phone] Attender: Tyrone [place] MD [place] - [facility] 08/28/2019 12:00:00 AM EDT JULISA ([facility]) Tyrone Beach MD: [address]472 [address], [address], [place] [address], Ph. [phone] Attender: Tyrone Beach MD [place] - [facility] - [facility] 08/28/2019 12:00:00 AM EDT JULISA ([facility]) Tyrone Beach MD: 24290 [address], [place] [address], Ph. [phone] Attender: Tyrone [place] MD [place] - [facility] - [facility] 08/28/2019 12:00:00 AM EDT JULISA ([facility]) Tyrone Beach MD: [address]22 [address], [address], [place] [address], Ph. [phone] Attender: Tyrone Beach MD [place] - [facility] 08/28/2019 12:00:00 AM EDT JULISA ([facility]) Tyrone Beach MD: [address]677 [address], [place] [address], Ph. [phone] Attender: Tyrone Beach MD [place] - [facility] - [facility] 08/28/2019 12:00:00 AM EDT JULISA ([facility]) Unknown [address] [facility] [address] 08/25/2019 12:00:00 AM EDT eC ([facility]) Outpatient Attender: Sally Johnson [facility] 08/22/2019 12:14:[address] [facility] Tyrone Beach MD: [address]141 [address], [place] [address], Ph. Attender: Tyrone [place] MD [place] - [facility] Office 08/10/2019 12:00:00 AM EDT JULISA ([facility]) Tyrone Beach MD: [address], [address], [place] [address], Ph. Attender: Tyrone Beach MD [place] - [facility] 08/10/2019 12:00:00 AM EDT JULISA ([facility]) Tyrone Beach MD: [address], [address], [place] [address], Ph. Attender: Tyrone Beach MD [place] - [facility] 08/10/2019 12:00:00 AM EDT JULISA ([facility]) Tyrone Beach MD: [address], [address], [place] [address], Ph. Attender: Tyrone POWER - [facility] 08/10/2019 12:00:00 AM EDT JULISA ([facility]) Tyrone Beach MD: [address], [address], [place] [address], Ph. Attender: Tyrone POWER - [facility] 08/10/2019 12:00:00 AM EDT JULISA ([facility]) Tyrone Beach MD: [address], [address], [place] [address], Ph. Attender: Tyrone POWER - [facility] 08/10/2019 12:00:00 AM EDT JULISA ([facility]) Tyrone Beach MD: [address]298 [address], [address], [place] [address], Ph. Attender: Tyrone POWER - [facility] 08/10/2019 12:00:00 AM EDT JULISA ([facility]) Tyrone Beach MD: [address], [address], [place] [address], Ph. Attender: Tyrone POWER - [facility] 08/10/2019 12:00:00 AM EDT JULISA ([facility]) Tyrone Beach MD: [address]898 [address], [address], [place] [address], Ph. Attender: Tyrone [place] MD [place] - [facility] 08/10/2019 12:00:00 AM EDT JULISA ([facility]) Tyrone Beach MD: [address]285 [address], [address], [place] [address], Ph. Attender: Tyrone Beach MD [place] - [facility] 08/10/2019 12:00:00 AM EDT JULISA ([facility]) Tyrone Beach MD: [address], [address], [place] [address], Ph. Attender: Tyrone POWER - [facility] 08/10/2019 12:00:00 AM EDT JULISA ([facility]) Tyrone Beach MD: [address], [address], [place] [address], Ph. Attender: Tyrone POWER - [facility] 08/10/2019 12:00:00 AM EDT JULISA ([facility]) Tyrone Beach MD: [address]63 [address], [address], [place] [address], Ph. Attender: Tyrone POWER - [facility] 08/06/2019 12:00:00 AM EDT JULISA ([facility]) Tyrone Beach MD: [address]93 [address], [address], [place] [address], Ph. Attender: Tyrone Beach MD [place] - [facility] 08/06/2019 12:00:00 AM EDT JULISA ([facility]) Tyrone Beach MD: [address], [address], [place] [address], Ph. Attender: Tyrone [place] MD [place] - [facility] 08/06/2019 12:00:00 AM EDT JULISA ([facility]) Tyrone Beach MD: [address]90 [address], [address], [place] [address], Ph. Attender: Tyrone POWER - [facility] 08/06/2019 12:00:00 AM EDT JULISA ([facility]) Tyrone Beach MD: [address]91 [address], [address], [place] [address], Ph. Attender: Tyrone POWER - [facility] 08/06/2019 12:00:00 AM EDT JULISA ([facility]) Tyrone Beach MD: [address], [address], [place] [address], Ph. Attender: Tyrone POWER - [facility] 08/06/2019 12:00:00 AM EDT JULISA ([facility]) Tyrone Beach MD: [address]24 [address], [address], [place] [address], Ph. Attender: Tyrone POWER - [facility] 08/06/2019 12:00:00 AM EDT JULISA ([facility]) Tyrone Beach MD: [address]155 [address], [address], [place] [address], Ph. Attender: Tyrone POWER - [facility] 08/06/2019 12:00:00 AM EDT JULISA ([facility]) Tyrone Beach MD: [address]751 [address], [address], [place] [address], Ph. Attender: Tyrone Beach MD [place] - [facility] 08/06/2019 12:00:00 AM EDT JULISA ([facility]) Tyrone Beach MD: [address]153 [address], [address], [place] [address], Ph. Attender: Tyrone Beach MD [place] - [facility] 08/06/2019 12:00:00 AM EDT JULISA ([facility]) Tyrone Beach MD: [address]50 [address], [address], [place] [address], Ph. Attender: Tyrone [place] MD [place] - [facility] 08/06/2019 12:00:00 AM EDT JULISA ([facility]) Tyrone Beach MD: [address]74 [address], [address], [place] [address], Ph. Attender: Tyrone Beach MD [place] - [facility] 08/06/2019 12:00:00 AM EDT JULISA ([facility]) Tyrone Beach MD: [address]791 [address], [address], [place] [address], Ph. Attender: Tyrone [place] MD [place] - [facility] 08/06/2019 12:00:00 AM EDT JULISA ([facility]) Sharlene Ambrocio, DIRECTOR OF CURRICULUM AND INSTRUCTION: [address], [address], [place] [address], Ph. Attender: Sharlene Ambrocio [facility] - [facility] 08/05/2019 12:00:00 AM EDT ATHE NA ([facility]) Sharlene Ambrocio, DIRECTOR OF CURRICULUM AND INSTRUCTION: [address], [place] [address], Ph. Attender: Sharlene Ambrocio [facility] 08/05/2019 12:00:00 AM EDT ATHE NA ([facility]) Sharlene Ambrocio, DIRECTOR OF CURRICULUM AND INSTRUCTION: [address], [place] [address], Ph. Attender: Sharlene Ambrocio [facility] - [facility] 08/05/2019 12:00:00 AM EDT ATHE NA ([facility]) Sharlene Ambrocio, DIRECTOR OF CURRICULUM AND INSTRUCTION: [address], [place] [address], Ph. Attender: Sharlene Ambrocio [facility] 08/05/2019 12:00:00 AM EDT ATHE NA ([facility]) Sharlene Ambrocio, DIRECTOR OF CURRICULUM AND INSTRUCTION: [address], [place] [address], Ph. Attender: Sharlene Ambrocio [facility] 08/05/2019 12:00:00 AM EDT ATHE NA ([facility]) Sharlene Ambrocio, DIRECTOR OF CURRICULUM AND INSTRUCTION: [address], [place] [address], Ph. Attender: Sharlene Ambrocio [facility] - [facility] 08/05/2019 12:00:00 AM EDT ATHE NA ([facility]) Sharlene Ambrocio, DIRECTOR OF CURRICULUM AND INSTRUCTION: [address], [place] [address], Ph. Attender: Sharlene Ambrocio [facility] - [facility] 08/05/2019 12:00:00 AM EDT ATHE NA ([facility]) Sharlene Ambrocio, DIRECTOR OF CURRICULUM AND INSTRUCTION: [address], [address], [place] [address], Ph. Attender: Sharlene Ambrocio [facility] - [facility] 08/05/2019 12:00:00 AM EDT ATHE NA ([facility]) Sharlene Ambrocio, DIRECTOR OF CURRICULUM AND INSTRUCTION: [address], [address], [place] [address], Ph. Attender: Sharlene Ambrocio [facility] - [facility] 08/05/2019 12:00:00 AM EDT ATHE NA ([facility]) Sharlene Ambrocio, DIRECTOR OF CURRICULUM AND INSTRUCTION: [address], [address], [place] [address], Ph. Attender: Sharlene Ambrocio [facility] - [facility] 08/05/2019 12:00:00 AM EDT ATHE NA ([facility]) Sharlene Ambrocio, DIRECTOR OF CURRICULUM AND INSTRUCTION: [address], [address], [place] [address], Ph. Attender: Sharlene Ambrocio [facility] - [facility] 08/05/2019 12:00:00 AM EDT ATHE NA ([facility]) Sharlene Ambrocio, DIRECTOR OF CURRICULUM AND INSTRUCTION: [address], [place] [address], Ph. Attender: Sharlene Ambrocio [facility] - [facility] 08/05/2019 12:00:00 AM EDT ATHE NA ([facility]) Sharlene Ambrocio, DIRECTOR OF CURRICULUM AND INSTRUCTION: [address], [address], [place] [address], Ph. Attender: Sharlene [facility]roc[facility] - [facility] 08/05/2019 12:00:00 AM EDT ATHHugo COLON ([facility]) Sharlene Ambrocio, DIRECTOR OF CURRICULUM AND INSTRUCTION: [address], [address], [place] [address], Ph. Attender: Sharlene Ambrocio [facility] 08/05/2019 12:00:00 AM EDT ATHHugo COLON ([facility]) Sharlene Ambrocio, DIRECTOR OF CURRICULUM AND INSTRUCTION: [address], [place] [address], Ph. Attender: Sharlene Ambrocio [facility] 07/14/2019 12:00:00 AM EDT JULISA ([facility]) Sharlene Ambrocio, DIRECTOR OF CURRICULUM AND INSTRUCTION: [address], [place] [address], Ph. Attender: Sharlene Ambrocio [facility] 07/14/2019 12:00:00 AM EDT JULISA ([facility]) Sharlene Ambrocio, DIRECTOR OF CURRICULUM AND INSTRUCTION: [address], [place] [address], Ph. Attender: Sharlene Ambrocio [facility] 07/14/2019 12:00:00 AM EDT JULISA ([facility]) Sharlene Ambrocio, DIRECTOR OF CURRICULUM AND INSTRUCTION: [address], [place] [address], Ph. Attender: Sharlene Ambrocio [facility] 07/14/2019 12:00:00 AM EDT JULISA ([facility]) Sharlene Ambrocio, DIRECTOR OF CURRICULUM AND INSTRUCTION: [address], [place] [address], Ph. Attender: Sharlene Ambrocoi [facility] - [facility] 07/14/2019 12:00:00 AM EDT JULISA ([facility]) Sharlene Ambrocio, DIRECTOR OF CURRICULUM AND INSTRUCTION: [address], [place] [address], Ph. Attender: Sharlene Joyvamshi [facility] - [facility] 07/14/2019 12:00:00 AM EDT JULISA ([facility]) Sharlene Ambrocio, DIRECTOR OF CURRICULUM AND INSTRUCTION: [address], [place] [address], Ph. Attender: Sharlene Joyvamshi [facility] - [facility] 07/14/2019 12:00:00 AM EDT JULISA ([facility]) Sharlene Ambrocio, DIRECTOR OF CURRICULUM AND INSTRUCTION: [address], [place] [address], Ph. Attender: Sharlene Joyvamshi [facility] - [facility] 07/14/2019 12:00:00 AM EDT JULISA ([facility]) Sharlene Ambrocio, DIRECTOR OF CURRICULUM AND INSTRUCTION: [address], [place] [address], Ph. Attender: Sharlenehugo Ambrocio [employer]MENT [employer]STER [place] - [facility] 07/14/2019 12:00:00 AM EDT JULISA ([facility]) Sharlene Ambrocio, DIRECTOR OF CURRICULUM AND INSTRUCTION: [address], [place] [address], Ph. Attender: Sharlene Ambrocio [employer]ATOR EQUIPMENT TESTER [place] - [facility] Office 07/14/2019 12:00:00 AM EDT JULISA ([facility]) Sharlene Ambrocio, DIRECTOR OF CURRICULUM AND INSTRUCTION: [address], [place] [address], Ph. Attender: Sharlene Ambrocio [employer]ATOR EQUIPMENT TESTER [place] - [facility] Office 07/14/2019 12:00:00 AM EDT JULISA ([facility]) Sharlene Ambrocio, DIRECTOR OF CURRICULUM AND INSTRUCTION: [address], [place] [address], Ph. Attender: Sharlene Ambrocio [facility] Office 07/14/2019 12:00:00 AM EDT JULISA ([facility]) Sharlene Ambrocio, DIRECTOR OF CURRICULUM AND INSTRUCTION: [address], [place] [address], Ph. Attender: Sharlene Ambrocio [facility] Office 07/14/2019 12:00:00 AM EDT JULISA ([facility]) Sharlene Ambrocio, DIRECTOR OF CURRICULUM AND INSTRUCTION: [address], [place] [address], Ph. Attender: Sharlene Ambrocio VIB[employer]ATOR EQUIPMENT TESTER [place] - [facility] Office 07/14/2019 12:00:00 AM EDT JULISA ([facility]) Sharlene Ambrocio, DIRECTOR OF CURRICULUM AND INSTRUCTION: [address], [place] [address], Ph. Attender: Sharlene Ambrocio VIBRATOR EQUIPMENT TESTER [place] - [facility] Office 07/14/2019 12:00:00 AM EDT JULISA ([facility]) [facility] [address] [facility] [address] 07/10/2019 12:00:00 AM EDT eCW1 ([facility]) [facility] [place] [address] [facility] [address] 06/30/2019 12:00:00 AM EDT eCW1 ([facility]) Tyrone Beach MD: [address]86 [address], [place] [address], Ph. Attender: Tyrone Beach MD [place] - [facility] 05/21/2019 12:00:00 AM EST JULISA ([facility]) Tyrone Beach MD: [address]129 [address], [place] [address], Ph. Attender: Tyrone POWER - [facility] 05/21/2019 12:00:00 AM EST JULISA ([facility]) Tyrone Beach MD: [address]33 [address], [place] [address], Ph. Attender: Tyrone Beach MD [place] - [facility] 05/21/2019 12:00:00 AM EST JULISA ([facility]) Tyrone Beach MD: [address]86 [address], [place] [address], Ph. Attender: Tyrone Beach MD [place] - [facility] 05/21/2019 12:00:00 AM EST JULISA ([facility]) Tyrone Beach MD: 43748 [address], [place] [address], Ph. Attender: Tyrone POWER - [facility] 05/21/2019 12:00:00 AM EST JULISA ([facility]) Tyrone Beach MD: 67135 [address], [address], [place] [address], Ph. Attender: Tyrone Beach MD [place] - [facility] 05/21/2019 12:00:00 AM EST JULISA ([facility]) Tyrone Beach MD: 83039 [address], [place] [address], Ph. Attender: Tyrone Beach MD [place] - [facility] 05/21/2019 12:00:00 AM EST JULISA ([facility]) Tyrone Becah MD: [address]00 [address], [place] [address], Ph. Attender: Tyrone Beach MD [place] - [facility] 05/21/2019 12:00:00 AM EST JULISA ([facility]) Tyrone Beach MD: 54076 [address], [place] [address], Ph. Attender: Tyrone Beach MD [place] - [facility] 05/21/2019 12:00:00 AM EST JULISA ([facility]) Tyrone Beach MD: 25484 [address], [place] [address], Ph. Attender: Tyrone Beach MD [place] - [facility] 05/21/2019 12:00:00 AM EST JULISA ([facility]) Tyrone Beach MD: 05188 [address], [place] [address], Ph. Attender: Tyrone POWER - [facility] 05/21/2019 12:00:00 AM EST JULISA ([facility]) Tyrone Beach MD: 96924 [address], [place] [address], Ph. Attender: Tyrone Beach MD [place] - [facility] 05/21/2019 12:00:00 AM EST JULISA ([facility]) Tyrone Beach MD: [address]8619 [address], [address], [place] [address], Ph. Attender: Tyrone Beach MD [place] - [facility] 05/21/2019 12:00:00 AM EST JULISA ([facility]) Tyrone Beach MD: 64307 [address], [place] [address], Ph. Attender: Tyrone Beach MD [place] - [facility] 05/21/2019 12:00:00 AM EST JULISA ([facility]) Tyrone Beach MD: 75878 [address], [place] [address], Ph. Attender: Tyrone Beach MD [place] - [facility] 05/21/2019 12:00:00 AM EST JULISA ([facility]) Tyrone Beach MD: 95432 [address], [place] [address], Ph. Attender: Tyrone Beach MD [place] - [facility] 05/21/2019 12:00:00 AM EST JULISA ([facility]) [facility] [address] [facility] [address] 05/15/2019 12:00:00 AM EST eCW1 ([facility]) Sharlene Ambrocio, DIRECTOR OF CURRICULUM AND INSTRUCTION: [address], [place] [address], Ph. Att[facility]: [facility] 04/29/2019 12:00:00 AM EST ATHE NA ([facility]) Sharlene Ambrocio, DIRECTOR OF CURRICULUM AND INSTRUCTION: [address]85 [address], [place] [address], Ph. Attender: Sharlene Ambrocio [facility] 04/29/2019 12:00:00 AM EST ATHE NA ([facility]) Sharlene Ambrocio, DIRECTOR OF CURRICULUM AND INSTRUCTION: [address]69 [address], [address], [place] [address], Ph. Attender: Sharlene Ambrocio [facility] 04/29/2019 12:00:00 AM EST ATHE NA ([facility]) Sharlene Ambrocio, DIRECTOR OF CURRICULUM AND INSTRUCTION: [address]35 [address], [place] [address], Ph. Attender: Sharlene Ambrocio [facility] 04/29/2019 12:00:00 AM EST ATHE NA ([facility]) Sharlene Ambrocio, DIRECTOR OF CURRICULUM AND INSTRUCTION: [address], [place] [address], Ph. Attender: Sharlene Ambrocio [facility] 04/29/2019 12:00:00 AM EST ATHE NA ([facility]) Sharlene Ambrocio, DIRECTOR OF CURRICULUM AND INSTRUCTION: [address]447 [address], [address], [place] [address], Ph. Attender: Sharlene Ambrocio [facility] 04/29/2019 12:00:00 AM EST ATHE NA ([facility]) Sharlene Ambrocio, DIRECTOR OF CURRICULUM AND INSTRUCTION: [address]96 [address], [address], [place] [address], Ph. Attender: Sharlene Ambrocio [facility] - [facility] 04/29/2019 12:00:00 AM EST ATHE NA ([facility]) Sharlene Ambrocio, DIRECTOR OF CURRICULUM AND INSTRUCTION: [address]46 [address], [place] [address], Ph. Attender: Sharlene Ambrocio [facility] - [facility] 04/29/2019 12:00:00 AM EST ATHE NA ([facility]) Sharlene Ambrocio, DIRECTOR OF CURRICULUM AND INSTRUCTION: [address]270 [address], [place] [address], Ph. Attender: Sharlene Ambrocio [facility] - [facility] 04/29/2019 12:00:00 AM EST ATHE NA ([facility]) Sharlene Ambrocio, DIRECTOR OF CURRICULUM AND INSTRUCTION: [address]56 [address], [place] [address], Ph. Attender: Sharlene Ambrocio [facility] - [facility] 04/29/2019 12:00:00 AM EST ATHE NA ([facility] [facility]) Sharlene Ambrocio, DIRECTOR OF CURRICULUM AND INSTRUCTION: [address], [place] [address], Ph. Attender: Sharlene Ambrocio [facility] - [facility] 04/29/2019 12:00:00 AM EST ATHE NA ([facility]) Sharlene Ambrocio, DIRECTOR OF CURRICULUM AND INSTRUCTION: [address], [place] [address], Ph. Attender: Sharlene Ambrocio [facility] - [facility] 04/29/2019 12:00:00 AM EST ATHE NA ([facility]) Sharlene Abmrocio, DIRECTOR OF CURRICULUM AND INSTRUCTION: [address], [place] [address], Ph. Attender: Sharlene Ambrocio [facility] - [facility] 04/29/2019 12:00:00 AM EST ATHE NA ([facility]) Sharlene Ambrocio, DIRECTOR OF CURRICULUM AND INSTRUCTION: [address], [place] [address], Ph. Attender: Sharlene Ambrocio [facility] - [facility] 04/29/2019 12:00:00 AM EST ATHE NA ([facility]) Sharlene Ambrocio, DIRECTOR OF CURRICULUM AND INSTRUCTION: [address], [place] [address], Ph. Attender: Sharlene Ambrocio [facility] - [facility] 04/29/2019 12:00:00 AM EST ATHE NA ([facility]) Sharlene Ambrocio, DIRECTOR OF CURRICULUM AND INSTRUCTION: [address], [place] [address], Ph. Attender: Sharlene Ambrocio [facility] 04/29/2019 12:00:00 AM EST ATHE NA ([facility]) Sharlene Ambrocio, DIRECTOR OF CURRICULUM AND INSTRUCTION: [address], [place] [address], Ph. Attender: Sharlene Ambrocio [facility] 04/29/2019 12:00:00 AM EST ATHE NA ([facility]) OFFICE OUTPATIENT NEW 30 MINUTES Attender: [facility] 04/14/2019 01:30:00 PM EST MEDENT ([facility]) Sharlene Ambrocio, DIRECTOR OF CURRICULUM AND INSTRUCTION: [address], [place] [address], Ph. Attender: Sharlene Ambrocio [facility] - [facility] 03/20/2019 12:00:00 AM EST ATHE NA ([facility]) Sharlene Ambrocio, DIRECTOR OF CURRICULUM AND INSTRUCTION: [address], [place] [address], Ph. Attender: Sharlene Ambrocio [facility] - [facility] 03/20/2019 12:00:00 AM EST ATHE NA ([facility]) Sharlene Ambrocio, DIRECTOR OF CURRICULUM AND INSTRUCTION: [address], [place] [address], Ph. Attender: Sharlene Ambrocio [facility] - [facility] 03/20/2019 12:00:00 AM EST ATHE NA ([facility]) Sharlene Ambrocio, DIRECTOR OF CURRICULUM AND INSTRUCTION: [address], [place] [address], Ph. Attender: Sharlene Ambrocio [facility] - [facility] 03/20/2019 12:00:00 AM EST ATHE NA ([facility]) Sharlene Ambrocio, DIRECTOR OF CURRICULUM AND INSTRUCTION: [address], [place] [address], Ph. Attender: Sharlene Ambrocio [facility] - [facility] 03/20/2019 12:00:00 AM EST ATHE NA ([facility]) Sharlene Ambrocio, DIRECTOR OF CURRICULUM AND INSTRUCTION: [address], [place] [address], Ph. Attender: Sharlene Ambrocio [facility] - [facility] 03/20/2019 12:00:00 AM EST ATHE NA ([facility]) Sharlene Ambrocio, DIRECTOR OF CURRICULUM AND INSTRUCTION: [address], [place] [address], Ph. Attender: Sharlene Ambrocio [facility] - [facility] 03/20/2019 12:00:00 AM EST ATHE NA ([facility]) Sharlene Ambrocio, DIRECTOR OF CURRICULUM AND INSTRUCTION: [address], [address], [place] [address], Ph. Attender: Sharlene Ambrocio [facility] - [facility] 03/20/2019 12:00:00 AM EST ATHE NA ([facility]) Sharlene Ambrocio, DIRECTOR OF CURRICULUM AND INSTRUCTION: [address], [place] [address], Ph. Attender: Sharlene Ambrocio [facility] - [facility] 03/20/2019 12:00:00 AM EST ATHE NA ([facility]) Sharlene Ambrocio, DIRECTOR OF CURRICULUM AND INSTRUCTION: [address], [place] [address], Ph. Attender: Sharlene Ambrocio [facility] - [facility] 03/20/2019 12:00:00 AM EST ATHE NA ([facility]) Sharlene Ambrocio, DIRECTOR OF CURRICULUM AND INSTRUCTION: [address], [place] [address], Ph. Attender: Sharlene Ambrocio [facility] - [facility] 03/20/2019 12:00:00 AM EST ATHE NA ([facility]) Sharlene Ambrocio, DIRECTOR OF CURRICULUM AND INSTRUCTION: [address], [place] [address], Ph. Attender: Sharlenehugo Cottrellyesi [facility] - [facility] 03/20/2019 12:00:00 AM EST ATHE NA ([facility]) Sharlene Ambrocio, DIRECTOR OF CURRICULUM AND INSTRUCTION: [address], [place] [address], Ph. Attender: Sharlene Ambrocio [facility] 03/20/2019 12:00:00 AM EST ATHE NA ([facility]) Sharlene Ambrocio, DIRECTOR OF CURRICULUM AND INSTRUCTION: [address], [place] [address], Ph. Attender: Sharlene Ambrocio [facility] 03/20/2019 12:00:00 AM EST ATHE NA ([facility]) Sharlene Ambrocio, DIRECTOR OF CURRICULUM AND INSTRUCTION: [address], [place] [address], Ph. Attender: Sharlene Ambrocio [facility] 03/20/2019 12:00:00 AM EST ATHE NA ([facility]) Sharlene Ambrocio, DIRECTOR OF CURRICULUM AND INSTRUCTION: [address], [place] [address], Ph. Attender: Sharlene Ambrocio [facility] 03/20/2019 12:00:00 AM EST ATHE NA ([facility]) Sharlene Ambrocio, DIRECTOR OF CURRICULUM AND INSTRUCTION: [address], [place] [address], Ph. Attender: Sharlene Ambrocio [facility] 03/20/2019 12:00:00 AM EST ATHE NA ([facility]) Sharlene Ambrocio, DIRECTOR OF CURRICULUM AND INSTRUCTION: [address], [address], [place] [address], Ph. Attender: Sharlene Ambrocio [facility] 03/20/2019 12:00:00 AM EST ATHE NA ([facility]) Outpatient 03/05/2019 07:54:00 PM EST [facility] Outpatient Attender: JHONNY JACKSON [facility] 03/05/2019 02:45:00 PM EST MEDENT ([facility]) [facility] [address] [facility] [address] 02/25/2019 12:00:00 AM EST eCW1 ([facility]) [facility] [address] [facility] [address] 02/24/2019 12:00:00 AM EST eCW1 ([facility]) [facility] [address] [facility] [address] 02/17/2019 12:00:00 AM EST eCW1 ([facility]) Sharlene Artemiodakotahdanielle Ambrocio, DIRECTOR OF CURRICULUM AND INSTRUCTION: [address], [place] [address], Ph. Attender: Sharlene Ambrocio [facility] 02/10/2019 12:00:00 AM EST ATHE NA ([facility]) Sharlene Artemiodakotahdanielle Ambrocio, DIRECTOR OF CURRICULUM AND INSTRUCTION: [address], [place] [address], Ph. Attender: Sharlene Cottrellyesi [facility] 02/10/2019 12:00:00 AM EST MANANE NA ([facility]) Sharlene Artemiodakotahdanielle Ambrocio, DIRECTOR OF CURRICULUM AND INSTRUCTION: [address], [place] [address], Ph. Attender: Sharlene Ambrocio [facility] - [facility] 02/10/2019 12:00:00 AM EST ATHE NA ([facility]) Sharlene Ambrocio, DIRECTOR OF CURRICULUM AND INSTRUCTION: [address], [address], [place] [address], Ph. Attender: Sharlene Ambrocio [facility] 02/10/2019 12:00:00 AM EST ATHE NA ([facility]) Sharlene Ambrocio, DIRECTOR OF CURRICULUM AND INSTRUCTION: [address], [address], [place] [address], Ph. Attender: Sharlene Joychapitoyeis [facility] 02/10/2019 12:00:00 AM EST ATHE NA ([facility]) Sahrlene Ambrocio, DIRECTOR OF CURRICULUM AND INSTRUCTION: [address], [place] [address], Ph. Attender: Sharlene Joychapitoyesi [facility] 02/10/2019 12:00:00 AM EST ATHE NA ([facility]) Sharlene Ambrocio, DIRECTOR OF CURRICULUM AND INSTRUCTION: [address], [place] [address], Ph. Attender: Sharlene Joychapitoyesi [facility] 02/10/2019 12:00:00 AM EST ATHE NA ([facility]) Sharlene Ambrocio, DIRECTOR OF CURRICULUM AND INSTRUCTION: [address], [address], [place] [address], Ph. Attender: Sharlene Joychapitoyesi [facility] 02/10/2019 12:00:00 AM EST ATHE NA ([facility]) Sharlene Ambrocio, DIRECTOR OF CURRICULUM AND INSTRUCTION: [address], [place] [address], Ph. Attender: Sharlene Ambrocio [facility] 02/10/2019 12:00:00 AM EST ATHE NA ([facility]) Sharlene Ambrocio, DIRECTOR OF CURRICULUM AND INSTRUCTION: [address], [place] [address], Ph. Attender: Sharlene Ambrocio [facility] 02/10/2019 12:00:00 AM EST ATHE NA ([facility]) Sharlene Ambrocio, DIRECTOR OF CURRICULUM AND INSTRUCTION: [address], [address], [place] [address], Ph. Attender: Sharlene Ambrocio [facility] 02/10/2019 12:00:00 AM EST ATHE NA ([facility]) Sharlene Ambrocio, DIRECTOR OF CURRICULUM AND INSTRUCTION: [address], [place] [address], Ph. Attender: Sharlene Ambrocio [facility] 02/10/2019 12:00:00 AM EST ATHE NA ([facility]) Sharlene Ambrocio, DIRECTOR OF CURRICULUM AND INSTRUCTION: [address], [place] [address], Ph. Attender: Sharlene Ambrocio [facility] 02/10/2019 12:00:00 AM EST ATHE NA ([facility]) Sharlene Ambrocio, DIRECTOR OF CURRICULUM AND INSTRUCTION: [address], [address], [place] [address], Ph. Attender: Sharlene Ambrocio [facility] 02/10/2019 12:00:00 AM EST ATHE NA ([facility]) Sharlene Ambrocio, DIRECTOR OF CURRICULUM AND INSTRUCTION: [address], [address], [place] [address], Ph. Attender: Sharlene Ambrocio [facility] 02/10/2019 12:00:00 AM EST MYKEL NA ([facility]) Sharlene Ambrocio, DIRECTOR OF CURRICULUM AND INSTRUCTION: [address], [place] [address], Ph. Attender: Sharlene Ambrocio [facility] 02/10/2019 12:00:00 AM EST MANANHugo NA ([facility]) Sharlene Ambrocio, DIRECTOR OF CURRICULUM AND INSTRUCTION: [address], [place] [address], Ph. [facility]: [facility] 02/10/2019 12:00:00 AM EST MYKEL NA ([facility]) Sharlene Ambrocio, DIRECTOR OF CURRICULUM AND INSTRUCTION: [address], [place] [address], Ph. Attender: Sharlene Ambrocio [facility] 02/10/2019 12:00:00 AM EST MAANNHugo NA ([facility]) Sharlene Ambrocio, DIRECTOR OF CURRICULUM AND INSTRUCTION: [address], [place] [address], Ph. [facility]: [facility] 02/10/2019 12:00:00 AM EST MYKEL NA ([facility]) Medications Medication Brand Name Start Date Product Form Dose Route Admi nistrative Instructions Pharmacy Instructions Status Indications Reaction Description Data Source(s) methylprednisolone 4 mg tablets in a dose pack 907262 completed methylprednisolone 4 mg tablets in a dose pack JULISA ([facility]) methylprednisolone 4 mg tablets in a dose pack 757137 completed methylprednisolone 4 mg tablets in a dose pack JULISA ([facility]) methylprednisolone 4 mg tablets in a dose pack 175247 completed methylprednisolone 4 mg tablets in a dose pack JULISA ([facility]) Ibuprofen 800 MG Oral Tablet ibuprofen 800 mg tablet ibuprofen 8 00 mg tablet completed ibuprofen 800 MG Oral Tablet JULISA ([facility]) methylprednisolone 4 mg tablets in a dose pack 818890 completed methylprednisolone 4 mg tablets in a dose pack JULISA ([facility]) Cyclobenzaprine hydrochloride 10 MG Oral Tablet cyclobenzaprine 10 mg tablet as needed cyclobenzaprine 10 mg tablet as needed completed cyclobenzaprine hydrochloride 10 MG Oral Tablet JULISA ([facility]) Ibuprofen 800 MG Oral Tablet ibuprofen 800 mg tablet ibuprofen 8 00 mg tablet completed ibuprofen 800 MG Oral Tablet JULISA ([facility]) methylprednisolone 4 mg tablets in a dose pack 037046 completed methylprednisolone 4 mg tablets in a dose pack JULISA ([facility]) Ibuprofen 800 MG Oral Tablet ibuprofen 800 mg tablet ibuprofen 8 00 mg tablet completed ibuprofen 800 MG Oral Tablet JULISA ([facility]) methylprednisolone 4 mg tablets in a dose pack 448236 completed methylprednisolone 4 mg tablets in a dose pack JULISA ([facility]) Cyclobenzaprine hydrochloride 10 MG Oral Tablet cyclobenzaprine 10 mg tablet as needed cyclobenzaprine 10 mg tablet as needed completed cyclobenzaprine hydrochloride 10 MG Oral Tablet JULISA ([facility]) methylprednisolone 4 mg tablets in a dose pack 778299 completed methylprednisolone 4 mg tablets in a dose pack JULISA ([facility]) Cyclobenzaprine hydrochloride 10 MG Oral Tablet cyclobenzaprine 10 mg tablet as needed cyclobenzaprine 10 mg tablet as needed completed cyclobenzaprine hydrochloride 10 MG Oral Tablet JULISA ([facility]) methylprednisolone 4 mg tablets in a dose pack 239101 completed methylprednisolone 4 mg tablets in a dose pack JULISA ([facility]) Insurance Providers Payer name Policy type / Coverage type Policy ID Covered constitution party ID Covered constitution party's relationship to hernandez Policy Hernandez Plan Information [facility] [id number] SP [id number] [address] [facility] [id number] MEDICAID [id number] SP [id number] [facility] [id number] ANSI-Commercial [id number] ANSI-Commercial [id number] ANSI-Commercial [id number] ANSI-Commercial [id number] ANSI-Medicaid [id number] ANSI-Commercial [id number] ANSI-Commercial [id number] ANSI-Medicaid [id number] ANSI-Commercial [id number] ANSI-Commercial [id number] ANSI-Commercial [id number] ANSI-Commercial [id number] ANSI-Commercial [id number] ANSI-Medicaid [id number] ANSI-Commercial [id number] ANSI-Commercial [id number] ANSI-Commercial [id number] ANSI-Medicaid [id number] ANSI-Commercial [id number] ANSI-Medicaid [id number] ANSI-Commercial [id number] ANSI-Commercial [id number] ANSI-Commercial [id number] [facility] [id number] [facility] [id number] [address] [facility] [id number] ANSI-Commercial [id number] ANSI-Medicaid [id number] ANSI-Commercial [id number]-[id number] ANSI-Commercial [id number] ANSI-Commercial [id number] ANSI-Commercial [id number] ANSI-Medicaid [id number] ANSI-Commercial [id number] [employer] [id number] ANSI-Commercial [id number] [employer] [id number] ION [employer]-Medicaid [id number] ANSICMP.LY [id number] ANSICMP.LY [id number] [employer] [id number] ANSI-Medicaid [id number] ANSI-Commercial [id number] ANSI-Commercial [id number] ANSI-Commercial [id number] ANSI-Medicaid [id number] ANSI-Commercial [id number] ANSI-Medicaid [id number] ANSI-Commercial [id number]-[id number] ANSI-Commercial [id number] ANSI-Medicaid [id number] ANSI-Commercial [id number] ANSI-Commercial [id number] ANSI-Commercial [id number] KAYA [id number] SP [id number] KAYA I [id number] Self [id number] [facility] [id number] 18 [id number] KAYA I [id number] Self [id number] [employer] WORK[employer] COMP [id number] SP [id number] [facility] SH[facility]ELD-O/P [id number] 19 [id number] [facility] [id number] Surgeries/Procedures Procedure Description Date Indications Data Source(s) Needle electromyography, each extremity, with related paraspinal areas, when performed, done with nerve conduction, amplitude and latency/velocity study; complete, five or more muscles studied, innervated by three or more nerves or four or more spinal levels (list separately in addition to the code for primary procedure). 04/14/2019 12:00:00 AM EST MEDEN T ([facility]) Nerve Conduction 9-10 Studies 04/14/2019 12:00:[address] MEDENT ([facility]) Results ID Date Data Source [id number] 11/09/2019 12:00:00 AM EDT JULISA ([facility]) Name Value Range Interpretation Code Description Data Emily rce(s) Supporting Document(s) ID Date Data Source [id number] 11/09/2019 12:00:00 AM EDT JULISA ([facility]) Name Value Range Interpretation Code Description Data Emily rce(s) Supporting Document(s) ID Date Data Source [id number] 11/09/2019 12:00:00 AM EDT JULISA ([facility]) Name Value Range Interpretation Code Description Data Emily rce(s) Supporting Document(s) ID Date Data Source [id number] 11/09/2019 12:00:00 AM EDT JULISA ([facility]) Name Value Range Interpretation Code Description Data Emily rce(s) Supporting Document(s) ID Date Data Source [id number] 11/09/2019 12:00:00 AM EDT JULISA ([facility]) Name Value Range Interpretation Code Description Data Emily rce(s) Supporting Document(s) ID Date Data Source [id number] 11/09/2019 12:00:00 AM EDT JULISA ([facility]) Name Value Range Interpretation Code Description Data Emily rce(s) Supporting Document(s) ID Date Data Source [id number] 11/09/2019 12:00:00 AM EDT [facility] Name Value Range Interpretation Code Description Data Emily rce(s) Supporting Document(s) SARS-CoV-2 [facility] This lab was ordered by [facility] and reported by [employer]. ID Date Data Source [id number] 08/28/2019 12:00:00 AM EDT JULISA ([facility]) Name Value Range Interpretation Code Description Data Emily rce(s) Supporting Document(s) ID Date Data Source [id number] 08/28/2019 12:00:00 AM EDT JULISA ([facility]) Name Value Range Interpretation Code Description Data Emily rce(s) Supporting Document(s) ID Date Data Source [id number] 08/28/2019 12:00:00 AM EDT JULISA ([facility]) Name Value Range Interpretation Code Description Data Emily rce(s) Supporting Document(s) ID Date Data Source [id number] 08/28/2019 12:00:00 AM EDT JULISA ([facility]) Name Value Range Interpretation Code Description Data Emily rce(s) Supporting Document(s) ID Date Data Source [id number] 08/28/2019 12:00:00 AM EDT JULISA ([facility]) Name Value Range Interpretation Code Description Data Emily rce(s) Supporting Document(s) ID Date Data Source [id number] 08/28/2019 12:00:00 AM EDT JULISA ([facility]) Name Value Range Interpretation Code Description Data Emily rce(s) Supporting Document(s) ID Date Data Source [id number] 08/28/2019 12:00:00 AM EDT JULISA ([facility]) Name Value Range Interpretation Code Description Data Emily rce(s) Supporting Document(s) ID Date Data Source [id number] 08/28/2019 12:00:00 AM EDT JULISA ([facility]) Name Value Range Interpretation Code Description Data Emily rce(s) Supporting Document(s) ID Date Data Source [id number] 08/28/2019 12:00:00 AM EDT JULISA ([facility]) Name Value Range Interpretation Code Description Data Emily rce(s) Supporting Document(s) ID Date Data Source [id number] 08/28/2019 12:00:00 AM EDT [facility] Name Value Range Interpretation Code Description Data Emily rce(s) Supporting Document(s) SARS-CoV-2 [facility] This lab was ordered by [facility] and reported by [employer]. ID Date Data Source [id number] 08/28/2019 12:00:00 AM EDT JULISA ([facility]) Name Value Range Interpretation Code Description Data Emily rce(s) Supporting Document(s) ID Date Data Source [id number] 08/06/2019 12:00:00 AM EDT JULISA ([facility]) Name Value Range Interpretation Code Description Data Emily rce(s) Supporting Document(s) ID Date Data Source [id number] 08/06/2019 12:00:00 AM EDT JULISA ([facility]) Name Value Range Interpretation Code Description Data Emily rce(s) Supporting Document(s) ID Date Data Source [id number] 08/06/2019 12:00:00 AM EDT JULISA ([facility]) Name Value Range Interpretation Code Description Data Emily rce(s) Supporting Document(s) ID Date Data Source [id number] 08/06/2019 12:00:00 AM EDT JULISA ([facility]) Name Value Range Interpretation Code Description Data Emily rce(s) Supporting Document(s) ID Date Data Source [id number] 08/06/2019 12:00:00 AM EDT JULISA ([facility]) Name Value Range Interpretation Code Description Data Emily rce(s) Supporting Document(s) ID Date Data Source [id number] 08/06/2019 12:00:00 AM EDT JULISA ([facility]) Name Value Range Interpretation Code Description Data Emily rce(s) Supporting Document(s) ID Date Data Source [id number] 08/06/2019 12:00:00 AM EDT JULISA ([facility]) Name Value Range Interpretation Code Description Data Emily rce(s) Supporting Document(s) ID Date Data Source [id number] 08/06/2019 12:00:00 AM EDT JULISA ([facility]) Name Value Range Interpretation Code Description Data Emily rce(s) Supporting Document(s) ID Date Data Source [id number] 08/06/2019 12:00:00 AM EDT JULISA ([facility]) Name Value Range Interpretation Code Description Data Emily rce(s) Supporting Document(s) ID Date Data Source [id number] 08/06/2019 12:00:00 AM EDT JULISA ([facility]) Name Value Range Interpretation Code Description Data Emily rce(s) Supporting Document(s) ID Date Data Source [id number] 08/06/2019 12:00:00 AM EDT JULISA ([facility]) Name Value Range Interpretation Code Description Data Emily rce(s) Supporting Document(s) ID Date Data Source [id number] 08/06/2019 12:00:00 AM EDT [facility] Name Value Range Interpretation Code Description Data Emily rce(s) Supporting Document(s) SARS-CoV-2 [facility] This lab was ordered by [facility] and reported by [employer]. ID Date Data Source [id number] 08/06/2019 12:00:00 AM EDT JULISA ([facility]) Name Value Range Interpretation Code Description Data Emily rce(s) Supporting Document(s) Procedure Vital Signs ID Date Data Source [id number] Name Value Range Interpretation Code Description Data Source(s) Body height 72 [in_i] 72 [in_i] JULISA ([facility]) Body height 72 [in_i] 72 [in_i] JULISA ([facility]) Body height 72 [in_i] 72 [in_i] JULISA ([facility]) Body height 72 [in_i] 72 [in_i] JULISA ([facility]) Body height 72 [in_i] 72 [in_i] JULISA ([facility]) Body height 72 [in_i] 72 [in_i] JULISA ([facility]) Body height 72 [in_i] 72 [in_i] JULISA ([facility]) Body height 72 [in_i] 72 [in_i] JULISA ([facility]) Body height 72 [in_i] 72 [in_i] JULISA ([facility]) Body height 72 [in_i] 72 [in_i] JULISA ([facility]) Body height 72 [in_i] 72 [in_i] JULISA ([facility]) Body height 72 [in_i] 72 [in_i] JULISA ([facility]) Body height 72 [in_i] 72 [in_i] JULISA ([facility]) Body height 72 [in_i] 72 [in_i] JULISA ([facility]) Body height 72 [in_i] 72 [in_i] JULISA ([facility]) Body height 72 [in_i] 72 [in_i] JULISA ([facility]) Body height 72 [in_i] 72 [in_i] JULISA ([facility]) Body height 72 [in_i] 72 [in_i] JULISA ([facility]) Body height 72 [in_i] 72 [in_i] JULISA ([facility]) Body height 72 [in_i] 72 [in_i] JULISA ([facility]) Body height 72 [in_i] 72 [in_i] JULISA ([facility]) Systolic blood pressure 126 mm[Hg] 126 mm[Hg] A THENA ([facility]) Body height 72 [in_i] 72 [in_i] JULISA ([facility]) Diastolic blood pressure 81 mm[Hg] 81 mm[Hg] JULISA ([facility]) Systolic blood pressure 126 mm[Hg] 126 mm[Hg] A THENA ([facility]) Body height 72 [in_i] 72 [in_i] JULISA ([facility]) Diastolic blood pressure 81 mm[Hg] 81 mm[Hg] JULISA ([facility]) Systolic blood pressure 126 mm[Hg] 126 mm[Hg] A THENA ([facility]) Body height 72 [in_i] 72 [in_i] JULISA ([facility]) Diastolic blood pressure 81 mm[Hg] 81 mm[Hg] JULISA ([facility]) Systolic blood pressure 126 mm[Hg] 126 mm[Hg] A THENA ([facility]) Body height 72 [in_i] 72 [in_i] JULISA ([facility]) Diastolic blood pressure 81 mm[Hg] 81 mm[Hg] JULISA ([facility]) Systolic blood pressure 126 mm[Hg] 126 mm[Hg] A THENA ([facility]) Body height 72 [in_i] 72 [in_i] JULISA ([facility]) Diastolic blood pressure 81 mm[Hg] 81 mm[Hg] JULISA ([facility]) Systolic blood pressure 126 mm[Hg] 126 mm[Hg] A THENA ([facility]) Body height 72 [in_i] 72 [in_i] JULISA ([facility]) Diastolic blood pressure 81 mm[Hg] 81 mm[Hg] JULISA ([facility]) Systolic blood pressure 126 mm[Hg] 126 mm[Hg] A THENA ([facility]) Body height 72 [in_i] 72 [in_i] JULISA ([facility]) Diastolic blood pressure 81 mm[Hg] 81 mm[Hg] JULISA ([facility]) Systolic blood pressure 126 mm[Hg] 126 mm[Hg] A THENA ([facility]) Body height 72 [in_i] 72 [in_i] JULISA ([facility]) Diastolic blood pressure 81 mm[Hg] 81 mm[Hg] JULISA ([facility]) Systolic blood pressure 126 mm[Hg] 126 mm[Hg] A THENA ([facility]) Body height 72 [in_i] 72 [in_i] JULISA ([facility]) Diastolic blood pressure 81 mm[Hg] 81 mm[Hg] JULISA ([facility]) Systolic blood pressure 126 mm[Hg] 126 mm[Hg] A THENA ([facility]) Body height 72 [in_i] 72 [in_i] JULISA ([facility]) Diastolic blood pressure 81 mm[Hg] 81 mm[Hg] JULISA ([facility]) Systolic blood pressure 126 mm[Hg] 126 mm[Hg] A THENA ([facility]) Body height 72 [in_i] 72 [in_i] JULISA ([facility]) Diastolic blood pressure 81 mm[Hg] 81 mm[Hg] JULISA ([facility]) Systolic blood pressure 126 mm[Hg] 126 mm[Hg] A THENA ([facility]) Body height 72 [in_i] 72 [in_i] JULISA ([facility]) Diastolic blood pressure 81 mm[Hg] 81 mm[Hg] JULISA ([facility]) Systolic blood pressure 126 mm[Hg] 126 mm[Hg] A THENA ([facility]) Body height 72 [in_i] 72 [in_i] JULISA ([facility]) Diastolic blood pressure 81 mm[Hg] 81 mm[Hg] JULISA ([facility]) Systolic blood pressure 126 mm[Hg] 126 mm[Hg] A THENA ([facility]) Body height 72 [in_i] 72 [in_i] JULISA ([facility]) Diastolic blood pressure 81 mm[Hg] 81 mm[Hg] JULISA ([facility]) Systolic blood pressure 126 mm[Hg] 126 mm[Hg] A THENA ([facility]) Body height 72 [in_i] 72 [in_i] JULISA ([facility]) Diastolic blood pressure 81 mm[Hg] 81 mm[Hg] JULISA ([facility]) Systolic blood pressure 126 mm[Hg] 126 mm[Hg] A THENA ([facility]) Body height 72 [in_i] 72 [in_i] JULISA ([facility]) Diastolic blood pressure 81 mm[Hg] 81 mm[Hg] JULISA ([facility]) Systolic blood pressure 126 mm[Hg] 126 mm[Hg] A THENA ([facility]) Body height 72 [in_i] 72 [in_i] JULISA ([facility]) Diastolic blood pressure 81 mm[Hg] 81 mm[Hg] JULISA ([facility]) Body mass index (BMI) [Ratio] 55.6 kg/m2 55.6 k g/m2 MEDENT ([facility]) Body weight 399.00 [lb_av] 399.00 [lb_av] MEDEN T ([facility]) Body height 71 [in_i] 71 [in_i] MEDENT ([facility]) 5'11" Body temperature 98.2 [degF] 98.2 [degF] MEDENT ([facility] Systolic blood pressure 140 mm[Hg] 140 mm[Hg] A THENA ([facility]) Body height 72 [in_i] 72 [in_i] JULISA ([facility]) Diastolic blood pressure 90 mm[Hg] 90 mm[Hg] JULISA ([facility]) Systolic blood pressure 140 mm[Hg] 140 mm[Hg] A THENA ([facility]) Body height 72 [in_i] 72 [in_i] JULISA ([facility]) Diastolic blood pressure 90 mm[Hg] 90 mm[Hg] JULISA ([facility]) Systolic blood pressure 140 mm[Hg] 140 mm[Hg] A THENA ([facility]) Body height 72 [in_i] 72 [in_i] JULISA ([facility]) Diastolic blood pressure 90 mm[Hg] 90 mm[Hg] JULISA ([facility]) Systolic blood pressure 140 mm[Hg] 140 mm[Hg] A THENA ([facility]) Body height 72 [in_i] 72 [in_i] JULISA ([facility]) Diastolic blood pressure 90 mm[Hg] 90 mm[Hg] JULISA ([facility]) Systolic blood pressure 140 mm[Hg] 140 mm[Hg] A THENA ([facility]) Body height 72 [in_i] 72 [in_i] JULISA ([facility]) Diastolic blood pressure 90 mm[Hg] 90 mm[Hg] JULISA ([facility]) Systolic blood pressure 140 mm[Hg] 140 mm[Hg] A THENA ([facility]) Body height 72 [in_i] 72 [in_i] JULISA ([facility]) Diastolic blood pressure 90 mm[Hg] 90 mm[Hg] JULISA ([facility]) Systolic blood pressure 140 mm[Hg] 140 mm[Hg] A THENA ([facility]) Body height 72 [in_i] 72 [in_i] JULISA ([facility]) Diastolic blood pressure 90 mm[Hg] 90 mm[Hg] JULISA ([facility]) Systolic blood pressure 140 mm[Hg] 140 mm[Hg] A THENA ([facility]) Body height 72 [in_i] 72 [in_i] JULISA ([facility]) Diastolic blood pressure 90 mm[Hg] 90 mm[Hg] JULISA ([facility]) Systolic blood pressure 140 mm[Hg] 140 mm[Hg] A THENA ([facility]) Body height 72 [in_i] 72 [in_i] JULISA ([facility]) Diastolic blood pressure 90 mm[Hg] 90 mm[Hg] JULISA ([facility]) Systolic blood pressure 140 mm[Hg] 140 mm[Hg] A THENA ([facility]) Body height 72 [in_i] 72 [in_i] JULISA ([facility]) Diastolic blood pressure 90 mm[Hg] 90 mm[Hg] JULISA ([facility]) Systolic blood pressure 140 mm[Hg] 140 mm[Hg] A THENA ([facility]) Body height 72 [in_i] 72 [in_i] JULISA ([facility]) Diastolic blood pressure 90 mm[Hg] 90 mm[Hg] JULISA ([facility]) Systolic blood pressure 140 mm[Hg] 140 mm[Hg] A THENA ([facility]) Body height 72 [in_i] 72 [in_i] JULISA ([facility]) Diastolic blood pressure 90 mm[Hg] 90 mm[Hg] JULISA ([facility]) Systolic blood pressure 140 mm[Hg] 140 mm[Hg] A THENA ([facility]) Body height 72 [in_i] 72 [in_i] JULISA ([facility]) Diastolic blood pressure 90 mm[Hg] 90 mm[Hg] JULISA ([facility]) Systolic blood pressure 140 mm[Hg] 140 mm[Hg] A THENA ([facility]) Body height 72 [in_i] 72 [in_i] JULISA ([facility]) Diastolic blood pressure 90 mm[Hg] 90 mm[Hg] JULISA ([facility]) Systolic blood pressure 140 mm[Hg] 140 mm[Hg] A THENA ([facility]) Body height 72 [in_i] 72 [in_i] JULISA ([facility]) Diastolic blood pressure 90 mm[Hg] 90 mm[Hg] JULISA ([facility]) Systolic blood pressure 140 mm[Hg] 140 mm[Hg] A THENA ([facility]) Body height 72 [in_i] 72 [in_i] JULISA ([facility]) Diastolic blood pressure 90 mm[Hg] 90 mm[Hg] JULISA ([facility]) Systolic blood pressure 140 mm[Hg] 140 mm[Hg] A THENA ([facility]) Body height 72 [in_i] 72 [in_i] JULISA ([facility]) Diastolic blood pressure 90 mm[Hg] 90 mm[Hg] JULISA ([facility]) Systolic blood pressure 140 mm[Hg] 140 mm[Hg] A THENA ([facility]) Body height 72 [in_i] 72 [in_i] JULISA ([facility]) Diastolic blood pressure 90 mm[Hg] 90 mm[Hg] JULISA ([facility]) Body weight 392 [lb_av] 392 [lb_av] JULISA ([facility]) Systolic blood pressure 150 mm[Hg] 150 mm[Hg] A THENA ([facility]) Body mass index (BMI) [Ratio] 53.2 kg/m2 53.2 k g/m2 JULISA ([facility]) Body height 72 [in_i] 72 [in_i] JULISA ([facility]) Diastolic blood pressure 73 mm[Hg] 73 mm[Hg] JULISA ([facility]) Body weight 392 [lb_av] 392 [lb_av] JULISA ([facility] [place] Systolic blood pressure 150 mm[Hg] 150 mm[Hg] A THENA ([facility] [place]) Body mass index (BMI) [Ratio] 53.2 kg/m2 53.2 k g/m2 JULISA ([facility] [place]) Body height 72 [in_i] 72 [in_i] JULISA ([facility] [place]) Diastolic blood pressure 73 mm[Hg] 73 mm[Hg] JULISA ([facility] [place]) Body weight 392 [lb_av] 392 [lb_av] JULISA ([facility] [place]) Systolic blood pressure 150 mm[Hg] 150 mm[Hg] A THENA ([facility]) Body mass index (BMI) [Ratio] 53.2 kg/m2 53.2 k g/m2 JULISA ([facility]) Body height 72 [in_i] 72 [in_i] JULISA ([facility]) Diastolic blood pressure 73 mm[Hg] 73 mm[Hg] JULISA ([facility]) Body weight 392 [lb_av] 392 [lb_av] JULISA ([facility] [place]) Systolic blood pressure 150 mm[Hg] 150 mm[Hg] A THENA ([facility]) Body mass index (BMI) [Ratio] 53.2 kg/m2 53.2 k g/m2 JULISA ([facility]) Body height 72 [in_i] 72 [in_i] JULISA ([facility] [place]) Diastolic blood pressure 73 mm[Hg] 73 mm[Hg] JULISA ([facility] [place]) Body weight 392 [lb_av] 392 [lb_av] JULISA ([facility] [place]) Systolic blood pressure 150 mm[Hg] 150 mm[Hg] A THENA ([facility]) Body mass index (BMI) [Ratio] 53.2 kg/m2 53.2 k g/m2 JULISA ([facility]) Body height 72 [in_i] 72 [in_i] JULISA ([facility]) Diastolic blood pressure 73 mm[Hg] 73 mm[Hg] JULISA ([facility] [place]) Body weight 392 [lb_av] 392 [lb_av] JULISA ([facility] [place]) Systolic blood pressure 150 mm[Hg] 150 mm[Hg] A THENA ([facility] [place]) Body mass index (BMI) [Ratio] 53.2 kg/m2 53.2 k g/m2 JULISA ([facility] [place]) Body height 72 [in_i] 72 [in_i] JULISA ([facility] [place]) Diastolic blood pressure 73 mm[Hg] 73 mm[Hg] JULISA ([facility] [place]) Body weight 392 [lb_av] 392 [lb_av] JULISA ([facility] [place]) Systolic blood pressure 150 mm[Hg] 150 mm[Hg] A THENA ([facility]) Body mass index (BMI) [Ratio] 53.2 kg/m2 53.2 k g/m2 JULISA ([facility]) Body height 72 [in_i] 72 [in_i] JULISA ([facility]) Diastolic blood pressure 73 mm[Hg] 73 mm[Hg] JULISA ([facility]) Body weight 392 [lb_av] 392 [lb_av] JULISA ([facility] [place]) Systolic blood pressure 150 mm[Hg] 150 mm[Hg] A THENA ([facility]) Body mass index (BMI) [Ratio] 53.2 kg/m2 53.2 k g/m2 JULISA ([facility]) Body height 72 [in_i] 72 [in_i] JULISA ([facility]) Diastolic blood pressure 73 mm[Hg] 73 mm[Hg] JULISA ([facility]) Diastolic blood pressure 73 mm[Hg] 73 mm[Hg] JULISA ([facility]) Body weight 392 [lb_av] 392 [lb_av] JULISA ([facility] [place]) Systolic blood pressure 150 mm[Hg] 150 mm[Hg] A THENA ([facility]) Body mass index (BMI) [Ratio] 53.2 kg/m2 53.2 k g/m2 JULISA ([facility]) Body height 72 [in_i] 72 [in_i] JULISA ([facility]) Diastolic blood pressure 73 mm[Hg] 73 mm[Hg] JULISA ([facility]) Body weight 392 [lb_av] 392 [lb_av] JULISA ([facility] [place]) Systolic blood pressure 150 mm[Hg] 150 mm[Hg] A THENA ([facility]) Body mass index (BMI) [Ratio] 53.2 kg/m2 53.2 k g/m2 JULISA ([facility] [place]) Body height 72 [in_i] 72 [in_i] JULISA ([facility] [place]) Diastolic blood pressure 73 mm[Hg] 73 mm[Hg] JULISA ([facility] [place]) Body weight 392 [lb_av] 392 [lb_av] JULISA ([facility] [place]) Systolic blood pressure 150 mm[Hg] 150 mm[Hg] A THENA ([facility]) Body mass index (BMI) [Ratio] 53.2 kg/m2 53.2 k g/m2 JULISA ([facility]) Body height 72 [in_i] 72 [in_i] JULISA ([facility] [place]) Diastolic blood pressure 73 mm[Hg] 73 mm[Hg] JULISA ([facility]) Body weight 392 [lb_av] 392 [lb_av] JULISA ([facility] [place]) Systolic blood pressure 150 mm[Hg] 150 mm[Hg] A THENA ([facility] [place]) Body mass index (BMI) [Ratio] 53.2 kg/m2 53.2 k g/m2 JULISA ([facility] [place]) Body height 72 [in_i] 72 [in_i] JULISA ([facility] [place]) Diastolic blood pressure 73 mm[Hg] 73 mm[Hg] JULISA ([facility] [place]) Body weight 392 [lb_av] 392 [lb_av] JULISA ([facility] [place]) Systolic blood pressure 150 mm[Hg] 150 mm[Hg] A THENA ([facility] [place]) Body mass index (BMI) [Ratio] 53.2 kg/m2 53.2 k g/m2 JULISA ([facility]) Body height 72 [in_i] 72 [in_i] JULISA ([facility] [place]) Diastolic blood pressure 73 mm[Hg] 73 mm[Hg] JULISA ([facility] [place]) Body weight 392 [lb_av] 392 [lb_av] JULISA ([facility] [place]) Systolic blood pressure 150 mm[Hg] 150 mm[Hg] A THENA ([facility] [place]) Body mass index (BMI) [Ratio] 53.2 kg/m2 53.2 k g/m2 JULISA ([facility] [place]) Body height 72 [in_i] 72 [in_i] JULISA ([facility] [place]) Diastolic blood pressure 73 mm[Hg] 73 mm[Hg] JULISA ([facility] [place]) Body weight 392 [lb_av] 392 [lb_av] JULISA ([facility] [place]) Systolic blood pressure 150 mm[Hg] 150 mm[Hg] A THENA ([facility]) Body mass index (BMI) [Ratio] 53.2 kg/m2 53.2 k g/m2 JULISA ([facility]) Body height 72 [in_i] 72 [in_i] JULISA ([facility]) Diastolic blood pressure 73 mm[Hg] 73 mm[Hg] JULISA ([facility]) Body weight 392 [lb_av] 392 [lb_av] JULISA ([facility] [place]) Systolic blood pressure 150 mm[Hg] 150 mm[Hg] A THENA ([facility]) Body mass index (BMI) [Ratio] 53.2 kg/m2 53.2 k g/m2 JULISA ([facility]) Body height 72 [in_i] 72 [in_i] JULISA ([facility]) Body weight 392 [lb_av] 392 [lb_av] JULISA ([facility] [place]) Systolic blood pressure 150 mm[Hg] 150 mm[Hg] A THENA ([facility]) Body mass index (BMI) [Ratio] 53.2 kg/m2 53.2 k g/m2 JULISA ([facility]) Body height 72 [in_i] 72 [in_i] JULISA ([facility]) Diastolic blood pressure 73 mm[Hg] 73 mm[Hg] JULISA ([facility]) Body weight 392 [lb_av] 392 [lb_av] JULISA ([facility] [place]) Systolic blood pressure 150 mm[Hg] 150 mm[Hg] A THENA ([facility]) Body mass index (BMI) [Ratio] 53.2 kg/m2 53.2 k g/m2 JULISA ([facility]) Body height 72 [in_i] 72 [in_i] JULISA ([facility]) Diastolic blood pressure 73 mm[Hg] 73 mm[Hg] JULISA ([facility]) Body weight 392 [lb_av] 392 [lb_av] JULISA ([facility] [place]) Systolic blood pressure 150 mm[Hg] 150 mm[Hg] A THENA ([facility] [place]) Body mass index (BMI) [Ratio] 53.2 kg/m2 53.2 k g/m2 JULISA ([facility] [place]) Body height 72 [in_i] 72 [in_i] JULISA ([facility] [place]) Diastolic blood pressure 73 mm[Hg] 73 mm[Hg] JULISA ([facility] [place]) Patient Treatment Plan of Care Planned Activity Planned Date Details Description Data Source (s) methylprednisolone 4 mg tablets in a dose pack JULISA ([facility] [place]) Ibuprofen 800 MG Oral Tablet JULISA ([facility] [place]) Cyclobenzaprine hydrochloride 10 MG Oral Tablet JULISA ([facility] [place]) methylprednisolone 4 mg tablets in a dose pack JULISA ([facility] [place] Ibuprofen 800 MG Oral Tablet JULISA ([facility] [place]) Cyclobenzaprine hydrochloride 10 MG Oral Tablet JULISA ([facility] [place]) methylprednisolone 4 mg tablets in a dose pack JULISA ([facility] [place]) methylprednisolone 4 mg tablets in a dose pack JULISA ([facility] [place]) methylprednisolone 4 mg tablets in a dose pack JULISA ([facility] [place]) methylprednisolone 4 mg tablets in a dose pack JULISA ([facility] [place]) Ibuprofen 800 MG Oral Tablet JULISA ([facility] [place]) Cyclobenzaprine hydrochloride 10 MG Oral Tablet JULISA ([facility] [place]) methylprednisolone 4 mg tablets in a dose pack JULISA ([facility] [place]) methylprednisolone 4 mg tablets in a dose pack JULISA ([facility] [place])
[2020-04-06] MEDS ORDERED: BACLOFEN 10 MG TAB PO ONE (15:30)
[2020-04-06 16:02] VITALS: BP 140/76
== END 2020-04-06 16:37 | disposition home or self-care (01) ==
LOC: M ED 12:54
DX: M54.30 Sciatica, unspecified side (principal); M51.9 Unspecified thoracic, thoracolumbar and lumbosacral intervertebral disc disorder; I10 Essential (primary) hypertension; Z79.899 Other long term (current) drug therapy

== ENCOUNTER → 2020-04-14 | Outpatient (CLI) | payer MEDICARE, OTHER ==
[~2020-04-14] MED LIST changes: +BACL10TA2; +BACL10TA2 PO; +DULO1CAP6; +LISI-898
--- NOTE | 2020-04-15 23:46 | ECWPNPC ---
PATIENT NAME: GITA ANGELO : 1990 GENDER: MALE VISIT DATE: 04/14/2020 DISCHARGE DATE: 04/14/20 1105 VISIT LOCKED DATE TIME: PHYSICIAN: LATOSHA WILHELM PHYSICIAN PAGER NO: ACTIVE RESOURCE: LATOSHA WILHELM REASON FOR APPOINTMENT 1. BACK PAIN HISTORY OF PRESENT ILLNESS DEPRESSION SCREENING: PHQ-9 LITTLE INTEREST OR PLEASURE IN DOING THINGSSEVERAL DAYS FEELING DOWN, DEPRESSED, OR HOPELESSSEVERAL DAYS TROUBLE FALLING OR STAYING ASLEEP, OR SLEEPING TOO MUCHSEVERAL DAYS FEELING TIRED OR HAVING LITTLE ENERGYSEVERAL DAYS POOR APPETITE OR OVEREATING NOT AT ALL FEELING BAD ABOUT YOURSELF-OR THAT YOU ARE A FAILURE OR HAVE LET YOURSELF OR YOUR FAMILY DOWN MORE THAN HALF THE DAYS TROUBLE CONCENTRATING ON THINGS, SUCH READING THE NEWSPAPER OR WATCHING TELEVISION NOT AT ALL MOVING OR SPEAKING SO SLOWLY THAT OTHER PEOPLE COULD HAVE NOTICED. OR THE OPPOSITE- BEING SO FIDGETY OR RESTLESS THAT YOU HAVE BEEN MOVING AROUND A LOT MORE THAN USUALNOT AT ALL THOUGHTS THAT YOU WOULD BE BETTER OFF , OR OF HURTING YOURSELF IN SOME WAY?SEVERAL DAYS(CONSIDER SUICIDE ASSESSMENT RISK) TOTAL SCORE:7 INTERPRETATIONMILD DEPRESSION PHQ-2 (2015 EDITION) LITTLE INTEREST OR PLEASURE IN DOING THINGS?SEVERAL DAYS FEELING DOWN, DEPRESSED, OR HOPELESS?SEVERAL DAYS TOTAL SCORE2 29-YEAR-OLD MALE IN FOR INITIAL PAIN CONSULT REGARDING LOW BACK PAIN. PATIENT STATES THE PAIN HAS BEEN PRESENT FOR THE PAST FEW YEARS. HE RATES HIS PAIN CURRENTLY AT A 7 OUT OF 10 AND DESCRIBES IT SHARP. PATIENT STATES HE IS A FORMER PATIENT OF DR. PEREZ AND AT THAT OFFICE HE WAS RECEIVING LUMBAR EPIDURAL STEROID INJECTIONS WITH GOOD RELIEF. PATIENT WOULD LIKE TO DISCUSS THE POSSIBILITY OF GETTING FACET INJECTIONS HERE. GENERAL: - - -. FALL RISK SCREENING: SCREENING :NO FALLS REPORTED IN THE LAST YEAR PAIN SCREENING: PATIENT HAS A COMPLAINT OF ACUTE OR CHRONIC PAIN :YES LOCATION OF PAIN:LOW BACK INTENSITY OF PAIN (SCALE OF 1 TO 10):7 WHAT DOES YOUR PAIN FEEL LIKE:SHARP DURATION:INTERMITTENT PAIN IS INCREASED BY:ACTIVITIES, PROLONGED STANDING PAIN IS DECREASED BY:USE OF PAIN MEDICATIONS NURSING NOTE: - - -. PAIN CENTER INTAKE QUESTIONS: DO YOU HAVE A HISTORY OF MRSA? :NO DO YOU TAKE A BLOOD THINNERS? :NO DO YOU HAVE ANY BLEEDING DISORDERS? :NO ANY NEW NUMBNESS OR WEAKNESS IN YOUR LEGS OR ARMS? :NO ANY PACEMAKER,DEFIBRILLATOR, OR DORSAL COLUMN STIMULATOR? :NO DO YOU HAVE ANY RASHES OR OPEN SORES? :NO ARE YOU ALLERGIC TO IV DYE? :NO ARE YOU DIABETIC? :NO ANY NEW PROBLEMS WITH YOUR MEDICATIONS? :NO HAVE YOU RECEIVED A VACCINE IN THE PAST 30 DAYS? :NO DO YOU PLAN TO RECEIVE A VACCINE IN THE NEXT 21 DAYS? :NO DO YOU NEED ANY PRESCRIPTION? :NO DO YOU TAKE ANY IMMUNOSUPPRESSIVE MEDICATIONS? :NO CURRENT MEDICATIONS TAKING DULOXETINE HCL 60 MG CAPSULE DELAYED RELEASE PARTICLES 1 CAPSULE ORALLY ONCE A DAY TAKING LISINOPRIL 5 MG TABLET 1 TABLET ORALLY ONCE A DAY TAKING DULOXETINE HCL 60 MG CAPSULE DELAYED RELEASE PARTICLES 1 CAPSULE ORALLY ONCE A DAY TAKING TRAMADOL HCL 50 MG TABLET 1 TABLET NEEDED FOR BACK PAIN ORALLY EVERY 6 HOURS NEEDED TAKING DICLOFENAC SODIUM 75 MG TABLET DELAYED RELEASE 1 TABLET WITH FOOD OR MILK ORALLY TWICE A DAY TAKING BACLOFEN 10 MG TABLET TAKE 1 TABLET BY MOUTH TWICE DAILY NEEDED ORAL TWICE A DAY TAKING TOPIRAMATE 50 MG TABLET 1 TAB ORALLY BID, NOTES: TOPAMAX TAKING VENTOLIN HFA 108 (90 BASE) MCG/ACT AEROSOL SOLUTION 2 PUFFS NEEDED INHALATION EVERY 4 HRS TAKING FLONASE ALLERGY RELIEF 50 MCG/ACT SUSPENSION 1 SPRAY IN EACH NOSTRIL NASALLY ONCE A DAY UNKNOWN CHLORTHALIDONE 25 MG TABLET 1 TABLET IN THE MORNING WITH FOOD ORALLY ONCE A DAY UNKNOWN CYCLOBENZAPRINE HCL 10 MG TABLET 1 TABLET NEEDED ORALLY THREE TIMES A DAY (MDD=30MG) UNKNOWN GABAPENTIN 100 MG CAPSULE 1 CAPSULE ORALLY TID UNKNOWN LIDODERM 5 % PATCH 1 PATCH TO INTACT SKIN REMOVE AFTER 12 HOURS EXTERNALLY ONCE A DAY ON FOR 12 HOURS, OFF FOR 12 HOURS UNKNOWN LIDOCAINE 4 % CREAM 1 APPLICATION TO AFFECTED AREA NEEDED EXTERNALLY THREE TIMES A DAY UNKNOWN TRIAMCINOLONE ACETONIDE 0.1 % OINTMENT 1 APPLICATION TO AFFECTED AREA EXTERNALLY TWICE A DAY UNKNOWN FLEXERIL 5 MG TABLET 1 TABLET NEEDED ORALLY THREE TIMES A DAY PRN MUSCLE SPASM MEDICATION LIST REVIEWED AND RECONCILED WITH THE PATIENT PAST MEDICAL HISTORY OBESITY, MORBID, BMI 40.0-49.9 LOW BACK PAIN RADIATING TO LEFT LEG STRAIN OF LUMBAR REGION UNCOMPLICATED ASTHMA, UNSPECIFIED ASTHMA SEVERITY ALLERGIES N.K.D.A. SURGICAL HISTORY NO SURGICAL HISTORY DOCUMENTED. FAMILY HISTORY FATHER: ALIVE 50 YRS MOTHER: ALIVE 45 YRS PATERNAL GRAND FATHER: ALIVE, DIAGNOSED WITH OTHER SPECIFIED CONDITIONS INFLUENCING HEALTH STATUS PATERNAL GRAND MOTHER: ALIVE, UNSPECIFIED HEART DISEASE MATERNAL GRAND FATHER: MATERNAL GRAND MOTHER: ALIVE, OTHER MALIGNANT NEOPLASM OF UNSPECIFIED SITE 1 BROTHER(S) , 1 SISTER(S) - HEALTHY. SOCIAL HISTORY GENERAL: TOBACCO USE ARE YOU A:NONSMOKER LATEX QUESTIONNAIRE LATEX ALLERGY : HAVE YOU EVER DEVELOPED ANY TYPE OF REACTION AFTER HANDLING LATEX PRODUCTS SUCH RUBBER GLOVES, CONDOMS, DIAPHRAGMS, BALLOONS, SOCKS, OR UNDERWEAR?NO LATEX ALLERGY : HAVE YOU EVER DEVELOPED ANY TYPE OF REACTION DURING OR AFTER DENTAL APPOINTMENT, VAGINAL/RECTAL EXAMINATION, SURGICAL PROCEDURE, OR ANY OTHER EXPOSURE?NO LATEX RISK : HAVE YOU EVER HAD ANY DIFFICULTY BREATHING OR HIVES AFTER EATING OR HANDLING ANY FRUITS, OR VEGETABLES; SUCH KIWI, BANANAS, STONE FRUITS, OR CHESTNUTSNO LATEX RISK : DO YOU HAVE A PREVIOUS PERSONAL HISTORY OF MORE THAN NINE SURGERIES, SPINA BIFIDA, OR REPEATED CATHERIZATIONS? NO LATEX RISK : ARE YOU FREQUENTLY EXPOSED TO LATEX PRODUCTS IN YOUR OCCUPATION?NO DATE ASKED : 04/14/2020 BMI CARE GOAL FOLLOW-UP ABOVE NORMAL BMI FOLLOW-UPDIETARY MANAGEMENT EDUCATION, GUIDANCE, AND COUNSELING ALCOHOL SCREENING DID YOU HAVE A DRINK CONTAINING ALCOHOL IN THE PAST YEAR?NO POINTS0 INTERPRETATIONNEGATIVE RECREATIONAL DRUG USE DRUG USE?NO CAFFEINE 1-2/DAY. SEXUAL HX HAD SEX IN THE LAST 12 MONTHS (VAGINAL, ORAL, OR ANAL)?NO HAVE YOU EVER HAD AN STD?NO HIV / HEP-C SCREENING HIV TEST OFFERED TO PATIENT:YES DATE OFFERED:12/29/2018 TEST ACCEPTED:NO HEP-C TEST OFFERED TO PATIENT:NO REASON:PATIENT DECLINED BROCHURE PROVIDED TO PATIENTYES CHRISTIANITY [id number] NONE LANGUAGE LANGUAGES SPOKEN:VIETNAMESE EDUCATION LEVEL OF EDUCATION:HIGH SCHOOL LEARNING BARRIERS / SPECIAL NEEDS CHANGE FROM LAST VISIT?NO BARRIERS TO LEARNING?NO HEARING IMPAIRED?NO VISION IMPAIRED?YES :CORRECTIVE LENSES GLASSES COGNITIVELY IMPAIRED?NO READINESS TO LEARN?YES LEARNING PREFERENCES?NO LEARNING CAPABILITIES PRESENT?YES EMOTIONAL BARRIERS?NO SPECIAL DEVICES?NO HUMAN RESOURCES COMMUNICATIONS MANAGER NEEDED?NO DOMESTIC VIOLENCE DO YOU FEEL SAFE IN YOUR ENVIRONMENT?YES OCCUPATION: UNEMPLOYED. DIET: REGULAR. EXERCISE: NO REGULAR EXERCISE. MARITAL STATUS: SINGLE. OTHERS AT HOME: MOTHER. HOUSING: PARENTS HOME. HOSPITALIZATION/MAJOR DIAGNOSTIC PROCEDURE RSV - CARTHAGE BACK PAIN 1 YRS OLD REVIEW OF SYSTEMS CONSTITUTIONAL: ANY RECENT FEVER NO . CHILLS NO . WEIGHT CHANGE OF UNKNOWN REASONS NO . MUSCULOSKELETAL: ANY UNUSUAL JOINT PAIN OR SWELLING NOT MENTIONED NO . SYSTEMIC LUPUS NO . ANY NEUROMUSCULAR DISORDER NOT MENTIONED NO . LYME DISEASE NO . GASTROENTEROLOGY: ANY NEW CHANGE IN BOWEL CONTROL? NO . HISTORY OF LIVER DISORDER NOT MENTIONED NO . HISTORY OF UNUSUAL ABDOMINAL PAIN OR CRAMPING NOT MENTIONED NO . NO CONSTIPATION. GENITOURINARY: ANY NEW CHANGE IN BLADDER CONTROL? NO . ANY RENAL/KIDNEY CONDITON NOT MENTIONED NO . NEUROLOGY: HISTORY OF TBI NOT MENTIONED NO . OTHER NEW NUMBNESS OR PAIN PATTERNS NOT MENTIONED NO . NEW ONSET DIZZINESS OR NEUROLOGICAL CHANGES NOT MENTIONED NO . HISTORY OF SEVERE HEADACHES NOT MENTIONED NO . HISTORY OF STROKE OR NEUROLOGICAL DISORDER NOT MENTIONED NO . CARDIOLOGY: HEART SURGERY NO . CONGESTIVE HEART FAILURE/FLUID OVERLOAD NOT MENTIONED NO . HISTORY OF CHEST PAIN,IRREGULAR HEART BEAT NOT MENTIONED NO . RESPIRATORY: SHORTNESS OF BREATH ON EXERTION, WHEEZES, UNUSUAL COUGH NOT MENTIONED NO . ENDOCRINOLOGY: ADRENAL GLAND OR THYROID DISORDERS NOT MENTIONED NO . UNUSUAL URINATION, DIZZINESS OR LETHARGY NOT MENTIONED NO . VITAL SIGNS WT 408.8 LBS, HT 72 IN, BMI 55.44 INDEX, BP 162/86 MM HG, HR 102 /MIN, RR 18 /MIN, TEMP 97.7 F, OXYGEN SAT % 97%Carlee TAPIA RN. EXAMINATION GENERAL EXAMINATION: GENERALNO ACUTE DISTRESS, WELL NOURISHED AND HYDRATED. PSYCHAPPROPRIATE MOOD AND AFFECT . LUNGS:CLEAR TO AUSCULTATION BILATERALLY, NO WHEEZES, RHONCHI, RALES. HEART:NO MURMURS, REGULAR RATE AND RHYTHM. BACK:DENIES POINT TENDERNESS ALONG LUMBAR SPINE, SURROUNDING SKIN SHOWS NO ERYTHEMA, ECCHYMOSIS, INCREASED WARMTH, AND/OR SKIN ERUPTIONS NOTED. POSITIVE MODIFIED SLR LEFT SIDE . MUSCULOSKELETAL:EQUAL STRENGTH OF LOWER EXTREMITIES BILATERALLY . ASSESSMENTS INTERVERTEBRAL DISC DISORDER WITH RADICULOPATHY OF LUMBOSACRAL REGION - M51.17 (PRIMARY) TREATMENT INTERVERTEBRAL DISC DISORDER WITH RADICULOPATHY OF LUMBOSACRAL REGION NOTES: 29-YEAR-OLD MALE IN FOR INITIAL PAIN CONSULT. GIVEN PRESENTING SYMPTOMS AND RESULTS OF PHYSICAL EXAMINATION RECOMMENDED LUMBAR EPIDURAL STEROID INJECTIONS WITH POSTPROCEDURAL FOLLOW-UP. PATIENT HAS EXPRESSED UNDERSTANDING OF AND WAS IN AGREEMENT WITH TREATMENT PLAN. GIVEN TIME TO ASK QUESTIONS AND EXPRESS CONCERNS. PRINTED AND REVIEWED POST PROCEDURES WITH PATIENT ALAN SANDOVAL. PROCEDURE CODES FA211 ESTABILISHED PATIENT FAITH FACILITY CHARGE DISPOSITION & COMMUNICATION FOLLOW UP POST PROCEDURE (REASON: LUMBAR EPIDURAL STEROID INJECTION) ELECTRONICALLY SIGNED BY GRAYSON POLK ON 04/15/2020 AT 09:28 AM EST DISCLAIMER : THIS IS A VISIT SUMMARY EXTRACTED FROM THE [employer] CHART. IT IS NOT A COPY OF THE [employer] PROGRESS NOTE. CALLUM
== END ==
LOC: M PAIN 10:15
PROVIDERS: ATTEND Family Medicine
DX: M51.17 Intervertebral disc disorders with radiculopathy, lumbosacral region (principal); E66.01 Morbid (severe) obesity due to excess calories; J45.909 Unspecified asthma, uncomplicated; Z68.43 Body mass index [BMI] 50.0-59.9, adult; Z79.891 Long term (current) use of opiate analgesic; Z79.899 Other long term (current) drug therapy

== ENCOUNTER → 2020-05-02 | Outpatient (CLI) | payer MEDICARE, OTHER ==
--- NOTE | 2020-05-03 23:38 | ECWPNPC ---
PATIENT NAME: GITA ANGELO : 1990 GENDER: MALE VISIT DATE: 05/02/2020 DISCHARGE DATE: 05/02/20 0945 VISIT LOCKED DATE TIME: PHYSICIAN: MERCEDES ALEXANDER MD PHYSICIAN PAGER NO: ACTIVE RESOURCE: MERCEDES ALEXANDER MD REASON FOR APPOINTMENT 1. DISCUSS DENIAL OF [address]ENNY [address] DR HISTORY OF PRESENT ILLNESS GENERAL: 29-YEAR-OLD MALE PATIENT WITH A HISTORY OF CHRONIC LOW BACK AND MAINLY LEFT LEG PAIN. THE PATIENT DESCRIBES THE PAIN SHARP, ACHING AND STABBING ON OCCASIONS WITH A PAIN SCORE RANGING FROM 6-10/10 IN THE BACK WITH RADIATION MAINLY TO THE LEFT LEG. HE HAS RECEIVED EPIDURALS IN THE PAST, WHICH ACCORDING TO THE PATIENT PROVIDES HIM PAIN RELIEF. THE PATIENT HAS NOT RECEIVED AN INJECTION IN 5 MONTHS AND THE PAIN IS REALLY AFFECTING HIS ABILITY TO PERFORM ACTIVITIES SUCH WALKING, SHOWERING AND GETTING DRESSED. HE IS HAVING A HARD TIME SLEEPING. THE PAIN IS LOCATED MAINLY IN THE BACK AND THE LEFT BUTTOCK AND THE LEFT HIP AND DOWN THE LEG. HE GETS NUMBNESS DOWN HIS TOES. THE PATIENT STATES THAT LAST WEEK, HE HAD A SHARP LANCINATING PAIN THAT FELT LIKE A SHOCK THROUGHOUT HIS BODY AND IT WAS VERY UNCOMFORTABLE. THE PATIENT IS LOOKING FOR HELP. HE RECEIVED INJECTIONS IN THE PAST AT A DIFFERENT PRACTICE. FALL RISK SCREENING: SCREENING :NO FALLS REPORTED IN THE LAST YEAR PAIN SCREENING: PATIENT HAS A COMPLAINT OF ACUTE OR CHRONIC PAIN :YES LOCATION OF PAIN:LOW BACK, LEG(S) LEFT LEG INTENSITY OF PAIN (SCALE OF 1 TO 10):7 WHAT DOES YOUR PAIN FEEL LIKE:SHARP DURATION:CONTINOUS DEPENDS ON ACTIVITIES PAIN IS INCREASED BY:ACTIVITIES, PROLONGED STANDING, OTHERS PROLONGED WALKING PAIN IS DECREASED BY:OTHERS LAYING DOWN, SITTING SOMETIMES, HEAT NURSING NOTE: -. PAIN CENTER INTAKE QUESTIONS: DO YOU HAVE A HISTORY OF MRSA? :NO DO YOU TAKE A BLOOD THINNERS? :NO DO YOU HAVE ANY BLEEDING DISORDERS? :NO ANY NEW NUMBNESS OR WEAKNESS IN YOUR LEGS OR ARMS? :YES STATES HIS BACK POPPED THE OTHER NIGHT AND CAUSED SEVERE CRAMPING TO LEFT LEG, CAUSED ELECTRICAL SHOCK FEELING AND NUMBNESS. COULD NOT STAND ON OWN - HAD TO HOLD ONTO WALL FOR BALANCE. ANY PACEMAKER,DEFIBRILLATOR, OR DORSAL COLUMN STIMULATOR? :NO DO YOU HAVE ANY RASHES OR OPEN SORES? :NO ARE YOU ALLERGIC TO IV DYE? :NO ARE YOU DIABETIC? :NO ANY NEW PROBLEMS WITH YOUR MEDICATIONS? :NO HAVE YOU RECEIVED A VACCINE IN THE PAST 30 DAYS? :NO DO YOU PLAN TO RECEIVE A VACCINE IN THE NEXT 21 DAYS? :NO DO YOU NEED ANY PRESCRIPTION? :NO DO YOU TAKE ANY IMMUNOSUPPRESSIVE MEDICATIONS? :NO CURRENT MEDICATIONS TAKING LISINOPRIL 5 MG TABLET 1 TABLET ORALLY ONCE A DAY TAKING DULOXETINE HCL 60 MG CAPSULE DELAYED RELEASE PARTICLES 1 CAPSULE ORALLY ONCE A DAY TAKING TRAMADOL HCL 50 MG TABLET 1 TABLET NEEDED FOR BACK PAIN ORALLY EVERY 6 HOURS NEEDED TAKING DICLOFENAC SODIUM 75 MG TABLET DELAYED RELEASE 1 TABLET WITH FOOD OR MILK ORALLY TWICE A DAY TAKING BACLOFEN 10 MG TABLET TAKE 1 TABLET BY MOUTH TWICE DAILY NEEDED ORAL TWICE A DAY TAKING TOPIRAMATE 50 MG TABLET 1 TAB ORALLY BID, NOTES: TOPAMAX TAKING VENTOLIN HFA 108 (90 BASE) MCG/ACT AEROSOL SOLUTION 2 PUFFS NEEDED INHALATION EVERY 4 HRS TAKING CHLORTHALIDONE 25 MG TABLET 1 TABLET IN THE MORNING WITH FOOD ORALLY ONCE A DAY NOT-TAKING DULOXETINE HCL 60 MG CAPSULE DELAYED RELEASE PARTICLES 1 CAPSULE ORALLY ONCE A DAY, NOTES: DUPLICATE NOT-TAKING FLONASE ALLERGY RELIEF 50 MCG/ACT SUSPENSION 1 SPRAY IN EACH NOSTRIL NASALLY ONCE A DAY UNKNOWN CYCLOBENZAPRINE HCL 10 MG TABLET 1 TABLET NEEDED ORALLY THREE TIMES A DAY (MDD=30MG) UNKNOWN GABAPENTIN 100 MG CAPSULE 1 CAPSULE ORALLY TID UNKNOWN LIDODERM 5 % PATCH 1 PATCH TO INTACT SKIN REMOVE AFTER 12 HOURS EXTERNALLY ONCE A DAY ON FOR 12 HOURS, OFF FOR 12 HOURS UNKNOWN LIDOCAINE 4 % CREAM 1 APPLICATION TO AFFECTED AREA NEEDED EXTERNALLY THREE TIMES A DAY UNKNOWN TRIAMCINOLONE ACETONIDE 0.1 % OINTMENT 1 APPLICATION TO AFFECTED AREA EXTERNALLY TWICE A DAY UNKNOWN FLEXERIL 5 MG TABLET 1 TABLET NEEDED ORALLY THREE TIMES A DAY PRN MUSCLE SPASM MEDICATION LIST REVIEWED AND RECONCILED WITH THE PATIENT PAST MEDICAL HISTORY OBESITY, MORBID, BMI 40.0-49.9 LOW BACK PAIN RADIATING TO LEFT LEG STRAIN OF LUMBAR REGION UNCOMPLICATED ASTHMA, UNSPECIFIED ASTHMA SEVERITY HTN ALLERGIES N.K.D.A. SOCIAL HISTORY GENERAL: TOBACCO USE ARE YOU A:NONSMOKER LATEX QUESTIONNAIRE LATEX ALLERGY : HAVE YOU EVER DEVELOPED ANY TYPE OF REACTION AFTER HANDLING LATEX PRODUCTS SUCH RUBBER GLOVES, CONDOMS, DIAPHRAGMS, BALLOONS, SOCKS, OR UNDERWEAR?NO LATEX ALLERGY : HAVE YOU EVER DEVELOPED ANY TYPE OF REACTION DURING OR AFTER DENTAL APPOINTMENT, VAGINAL/RECTAL EXAMINATION, SURGICAL PROCEDURE, OR ANY OTHER EXPOSURE?NO LATEX RISK : HAVE YOU EVER HAD ANY DIFFICULTY BREATHING OR HIVES AFTER EATING OR HANDLING ANY FRUITS, OR VEGETABLES; SUCH KIWI, BANANAS, STONE FRUITS, OR CHESTNUTSNO LATEX RISK : DO YOU HAVE A PREVIOUS PERSONAL HISTORY OF MORE THAN NINE SURGERIES, SPINA BIFIDA, OR REPEATED CATHERIZATIONS? NO LATEX RISK : ARE YOU FREQUENTLY EXPOSED TO LATEX PRODUCTS IN YOUR OCCUPATION?NO DATE ASKED : 04/14/2020 ALCOHOL USE: NO. BMI CARE GOAL FOLLOW-UP ABOVE NORMAL BMI FOLLOW-UPDIETARY MANAGEMENT EDUCATION, GUIDANCE, AND COUNSELING ALCOHOL SCREENING DID YOU HAVE A DRINK CONTAINING ALCOHOL IN THE PAST YEAR?NO POINTS0 INTERPRETATIONNEGATIVE RECREATIONAL DRUG USE DRUG USE?NO CAFFEINE 1-2/DAY. SEXUAL HX HAD SEX IN THE LAST 12 MONTHS (VAGINAL, ORAL, OR ANAL)?NO HAVE YOU EVER HAD AN STD?NO HIV / HEP-C SCREENING HIV TEST OFFERED TO PATIENT:YES DATE OFFERED:12/29/2018 TEST ACCEPTED:NO HEP-C TEST OFFERED TO PATIENT:NO REASON:PATIENT DECLINED BROCHURE PROVIDED TO PATIENTYES ORTHODOXY [id number] NONE LANGUAGE LANGUAGES SPOKEN:SWEDISH EDUCATION LEVEL OF EDUCATION:HIGH SCHOOL LEARNING BARRIERS / SPECIAL NEEDS CHANGE FROM LAST VISIT?NO BARRIERS TO LEARNING?NO HEARING IMPAIRED?NO VISION IMPAIRED?YES :CORRECTIVE LENSES GLASSES COGNITIVELY IMPAIRED?NO READINESS TO LEARN?YES LEARNING PREFERENCES?NO LEARNING CAPABILITIES PRESENT?YES EMOTIONAL BARRIERS?NO SPECIAL DEVICES?NO ASBESTOS SHINGLE ROOFER NEEDED?NO OCCUPATION: UNEMPLOYED. DIET: REGULAR. EXERCISE: NO REGULAR EXERCISE. MARITAL STATUS: SINGLE. OTHERS AT HOME: MOTHER. HOUSING: PARENTS HOME. REVIEW OF SYSTEMS CONSTITUTIONAL: ANY RECENT FEVER NO . CHILLS NO . WEIGHT CHANGE OF UNKNOWN REASONS NO . GASTROENTEROLOGY: NEW UNEXPLAINABLE CHANGES IN BOWEL CONTROL NO . CONSTIPATION NO . GENITOURINARY: ANY NEW CHANGE IN BLADDER CONTROL? NO . NEUROLOGY: NEW ONSET DIZZINESS OR NEUROLOGICAL CHANGES NOT MENTIONED NO . NEW NUMBNESS OR PAIN PATTERNS NOT MENTIONED AND PERTINENT TO TODAY'S VISIT NO . CARDIOLOGY: NEW CHEST PRESSURE NO . NEW CHEST PAIN NO . RESPIRATORY: UNEXPLAINABLE COUGH NO . NEW SHORTNESS OF BREATH NO . VITAL SIGNS WT 408. LBS, HT 72 IN, BMI 55.33 INDEX, BP 143/91 MM HG, HR 90 /MIN, RR 18 /MIN, TEMP 97.5 F, OXYGEN SAT % 97%, SAFE IN ENV? (Y/N) YES, NA INITIALS CA 08:48, REVIEWED BY: JSJ. REGINA RN. EXAMINATION GENERAL EXAMINATION: THE PATIENT IS ALERT, ORIENTED TIMES THREE AND COOPERATIVE. LUNGS ARE CLEAR TO AUSCULTATION. HEART SHOWS REGULAR RHYTHM, NO MURMURS AND NO GALLOPS. HE WALKS LIMPING FROM THE LEFT LEG WHICH IS WEAKER THAN THE RIGHT LEG ON FLEXION AND EXTENSION. STRAIGHT LEG RAISE IS POSITIVE FOR RADICULOPATHY AT 45 DEGREE. MRI OF THE 02/16/2019 SHOWS A BULGING DISC AT L4-L5 WITH A PROTRUSION. THERE IS ALSO A BULGING DISC AT L3-L4 AND A BUGLING DISC AT L5-S1. ASSESSMENTS RADICULOPATHY DUE TO LUMBAR INTERVERTEBRAL DISC DISORDER - M51.16 (PRIMARY) TREATMENT RADICULOPATHY DUE TO LUMBAR INTERVERTEBRAL DISC DISORDER CLINICAL NOTES: I DISCUSSED ALTERNATIVES WITH MR. ANGELO. I AM GOING TO REQUEST AUTHORIZATION FOR A LUMBAR EPIDURAL. THE PATIENT HAS SYMPTOMS OF RADICULOPATHY AND HE HAS NOT RECEIVED AN INJECTION IN THE LAST 5 MONTHS. THEY HAVE WORKED FOR HIM IN THE PAST. I AM LOOKING FOR LONG LASTING PAIN RELIEF. I WILL ADVISE TO TRY FIRST AN INTERLAMINAR ROUTE PROBABLY AT L4-L5. I MAY CONSIDER INJECTION AT L3-L4 ALSO. ALTERNATIVELY, IF THAT INJECTION DOES NOT GIVE HIM LONG LASTING PAIN RELIEF, I WILL CONSIDER A TRANSFORAMINAL. IN THAT CASE, L3-L4, L4-L5 ON THE LEFT SIDE. UNTIL WE RECEIVE THAT AUTHORIZATION, THE PATIENT WILL FOLLOW UP WITH THE NURSE PRACTITIONER. THE PATIENT REPORTS UNDERSTANDING AND AGREES WITH THE PLAN. I, MARGUERITE QIU, DOCUMENTED THE ABOVE INFORMATION ACTING A SCRIBE FOR DR. ALEXANDER. I HAVE REVIEWED THE ABOVE DOCUMENT, WRITTEN BY MARGUERITE QIU, SUPERVISOR [employer] DEPART[facility], AND I VERIFY THAT IT IS ACCURATE. PROCEDURE CODES FA211 ESTABILISHED PATIENT [facility] FACILITY CHARGE [id number] OFFICE/OUTPATIENT VISIT EST DISPOSITION & COMMUNICATION FOLLOW UP REQUEST AUTHORIZATION FOR A LUMBAR EPIDURAL STEROID INJECTION (REASON: FOLLOW UP WITH GALLERY DIRECTOR FOR MED MANAGEMENT ) ELECTRONICALLY SIGNED BY MERCEDES ALEXANDER MD, MD ON 05/03/2020 AT 01:25 PM EST DISCLAIMER : THIS IS A VISIT SUMMARY EXTRACTED FROM THE [facility] CHART. IT IS NOT A COPY OF THE [facility] PROGRESS NOTE. MTDD
== END ==
LOC: M PAIN 09:00
PROVIDERS: ATTEND Anesthesiology
DX: M51.16 Intervertebral disc disorders with radiculopathy, lumbar region (principal); E66.01 Morbid (severe) obesity due to excess calories; Z68.43 Body mass index [BMI] 50.0-59.9, adult; J45.909 Unspecified asthma, uncomplicated; I10 Essential (primary) hypertension; Z79.899 Other long term (current) drug therapy

== ENCOUNTER → 2020-06-09 | Outpatient (CLI) | payer MEDICARE, OTHER ==
--- NOTE | 2020-06-14 06:22 | ECWPNPC ---
PATIENT NAME: GITA ANGELO : 1990 GENDER: MALE VISIT DATE: 06/09/2020 DISCHARGE DATE: 06/09/20 1458 VISIT LOCKED DATE TIME: PHYSICIAN: LATOSHA WILHELM PHYSICIAN PAGER NO: ACTIVE RESOURCE: LATOSHA WILHELM REASON FOR APPOINTMENT 1. F/U DISCUSS MEDS HISTORY OF PRESENT ILLNESS GENERAL: - 30-YEAR-OLD MALE IN FOR CHRONIC PAIN FOLLOW-UP. HE RATES HIS PAIN CURRENTLY AT AN 8 OUT OF 10 AND DESCRIBES IT CONTINUOUS, SHARP, AND PULSING. LUMBAR EPIDURAL STEROID INJECTION WAS ORDERED FOR PATIENT HOWEVER HIS INSURANCE COMPANY HAS DENIED IT. FALL RISK SCREENING: SCREENING : NO FALLS REPORTED IN THE LAST YEAR. PAIN SCREENING: PATIENT HAS A COMPLAINT OF ACUTE OR CHRONIC PAIN :YES LOCATION OF PAIN:LOW BACK INTENSITY OF PAIN (SCALE OF 1 TO 10):8 WHAT DOES YOUR PAIN FEEL LIKE:CONTINOUS, SHARP, OTHER PULSING DURATION:CONTINOUS, AWAKENS FROM SLEEP PAIN IS INCREASED BY:ACTIVITIES, PROLONGED STANDING PAIN IS DECREASED BY:USE OF PAIN MEDICATIONS, OTHERS HEAT NURSING NOTE: -. PAIN CENTER INTAKE QUESTIONS: DO YOU HAVE A HISTORY OF MRSA? :NO DO YOU TAKE A BLOOD THINNERS? :NO DO YOU HAVE ANY BLEEDING DISORDERS? :NO ANY NEW NUMBNESS OR WEAKNESS IN YOUR LEGS OR ARMS? :NO ANY PACEMAKER,DEFIBRILLATOR, OR DORSAL COLUMN STIMULATOR? :NO DO YOU HAVE ANY RASHES OR OPEN SORES? :NO ARE YOU ALLERGIC TO IV DYE? :NO ARE YOU DIABETIC? :NO ANY NEW PROBLEMS WITH YOUR MEDICATIONS? :NO HAVE YOU RECEIVED A VACCINE IN THE PAST 30 DAYS? :NO DO YOU PLAN TO RECEIVE A VACCINE IN THE NEXT 21 DAYS? :NO DO YOU NEED ANY PRESCRIPTION? :NO DO YOU TAKE ANY IMMUNOSUPPRESSIVE MEDICATIONS? :NO DO YOU HAVE ANY KIDNEY OR LIVER DISEASE? :NO IS THERE A CHANCE YOU COULD BE ? :NO ARE YOU BREAST FEEDING? :NO CURRENT MEDICATIONS TAKING LISINOPRIL 5 MG TABLET 1 TABLET ORALLY ONCE A DAY TAKING DULOXETINE HCL 60 MG CAPSULE DELAYED RELEASE PARTICLES 1 CAPSULE ORALLY ONCE A DAY TAKING TRAMADOL HCL 50 MG TABLET 1 TABLET NEEDED FOR BACK PAIN ORALLY EVERY 6 HOURS NEEDED TAKING DICLOFENAC SODIUM 75 MG TABLET DELAYED RELEASE 1 TABLET WITH FOOD OR MILK ORALLY TWICE A DAY TAKING BACLOFEN 10 MG TABLET TAKE 1 TABLET BY MOUTH TWICE DAILY NEEDED ORAL TWICE A DAY TAKING TOPIRAMATE 50 MG TABLET 1 TAB ORALLY BID, NOTES: TOPAMAX TAKING VENTOLIN HFA 108 (90 BASE) MCG/ACT AEROSOL SOLUTION 2 PUFFS NEEDED INHALATION EVERY 4 HRS NOT-TAKING CHLORTHALIDONE 25 MG TABLET 1 TABLET IN THE MORNING WITH FOOD ORALLY ONCE A DAY, NOTES: LAST DOSE 04/25/2020 UNKNOWN DULOXETINE HCL 60 MG CAPSULE DELAYED RELEASE PARTICLES 1 CAPSULE ORALLY ONCE A DAY, NOTES: DUPLICATE UNKNOWN FLONASE ALLERGY RELIEF 50 MCG/ACT SUSPENSION 1 SPRAY IN EACH NOSTRIL NASALLY ONCE A DAY UNKNOWN CYCLOBENZAPRINE HCL 10 MG TABLET 1 TABLET NEEDED ORALLY THREE TIMES A DAY (MDD=30MG) UNKNOWN GABAPENTIN 100 MG CAPSULE 1 CAPSULE ORALLY TID UNKNOWN LIDODERM 5 % PATCH 1 PATCH TO INTACT SKIN REMOVE AFTER 12 HOURS EXTERNALLY ONCE A DAY ON FOR 12 HOURS, OFF FOR 12 HOURS UNKNOWN LIDOCAINE 4 % CREAM 1 APPLICATION TO AFFECTED AREA NEEDED EXTERNALLY THREE TIMES A DAY UNKNOWN TRIAMCINOLONE ACETONIDE 0.1 % OINTMENT 1 APPLICATION TO AFFECTED AREA EXTERNALLY TWICE A DAY UNKNOWN FLEXERIL 5 MG TABLET 1 TABLET NEEDED ORALLY THREE TIMES A DAY PRN MUSCLE SPASM MEDICATION LIST REVIEWED AND RECONCILED WITH THE PATIENT PAST MEDICAL HISTORY OBESITY, MORBID, BMI 40.0-49.9 LOW BACK PAIN RADIATING TO LEFT LEG STRAIN OF LUMBAR REGION UNCOMPLICATED ASTHMA, UNSPECIFIED ASTHMA SEVERITY HTN ALLERGIES SEASONAL ALLERGIES: CONGESTION - ALLERGY SOCIAL HISTORY GENERAL: TOBACCO USE ARE YOU A:NONSMOKER LATEX QUESTIONNAIRE LATEX ALLERGY : HAVE YOU EVER DEVELOPED ANY TYPE OF REACTION AFTER HANDLING LATEX PRODUCTS SUCH RUBBER GLOVES, CONDOMS, DIAPHRAGMS, BALLOONS, SOCKS, OR UNDERWEAR?NO LATEX ALLERGY : HAVE YOU EVER DEVELOPED ANY TYPE OF REACTION DURING OR AFTER DENTAL APPOINTMENT, VAGINAL/RECTAL EXAMINATION, SURGICAL PROCEDURE, OR ANY OTHER EXPOSURE?NO LATEX RISK : HAVE YOU EVER HAD ANY DIFFICULTY BREATHING OR HIVES AFTER EATING OR HANDLING ANY FRUITS, OR VEGETABLES; SUCH KIWI, BANANAS, STONE FRUITS, OR CHESTNUTSNO LATEX RISK : DO YOU HAVE A PREVIOUS PERSONAL HISTORY OF MORE THAN NINE SURGERIES, SPINA BIFIDA, OR REPEATED CATHERIZATIONS? NO LATEX RISK : ARE YOU FREQUENTLY EXPOSED TO LATEX PRODUCTS IN YOUR OCCUPATION?NO DATE ASKED : 06/09/2020 ALCOHOL USE: NO. BMI CARE GOAL FOLLOW-UP ABOVE NORMAL BMI FOLLOW-UPDIETARY MANAGEMENT EDUCATION, GUIDANCE, AND COUNSELING ALCOHOL SCREENING DID YOU HAVE A DRINK CONTAINING ALCOHOL IN THE PAST YEAR?NO POINTS0 INTERPRETATIONNEGATIVE RECREATIONAL DRUG USE DRUG USE?NO CAFFEINE 1-2/DAY. SEXUAL HX HAD SEX IN THE LAST 12 MONTHS (VAGINAL, ORAL, OR ANAL)?NO HAVE YOU EVER HAD AN STD?NO HIV / HEP-C SCREENING HIV TEST OFFERED TO PATIENT:YES DATE OFFERED:12/29/2018 TEST ACCEPTED:NO HEP-C TEST OFFERED TO PATIENT:NO REASON:PATIENT DECLINED BROCHURE PROVIDED TO PATIENTYES JEWISH [id number] NONE LANGUAGE LANGUAGES SPOKEN:[place] EDUCATION LEVEL OF EDUCATION:HIGH SCHOOL LEARNING BARRIERS / SPECIAL NEEDS CHANGE FROM LAST VISIT?NO BARRIERS TO LEARNING?NO HEARING IMPAIRED?NO VISION IMPAIRED?YES :CORRECTIVE LENSES GLASSES COGNITIVELY IMPAIRED?NO READINESS TO LEARN?YES LEARNING PREFERENCES?NO LEARNING CAPABILITIES PRESENT?YES EMOTIONAL BARRIERS?NO SPECIAL DEVICES?NO RECOVERY OPERATOR HELPER NEEDED?NO OCCUPATION: UNEMPLOYED. DIET: REGULAR. EXERCISE: NO REGULAR EXERCISE. MARITAL STATUS: SINGLE. OTHERS AT HOME: MOTHER. HOUSING: PARENTS HOME. REVIEW OF SYSTEMS CONSTITUTIONAL: ANY RECENT FEVER NO . CHILLS NO . WEIGHT CHANGE OF UNKNOWN REASONS NO . GASTROENTEROLOGY: NEW UNEXPLAINABLE CHANGES IN BOWEL CONTROL NO . CONSTIPATION NO . GENITOURINARY: ANY NEW CHANGE IN BLADDER CONTROL? NO . NEUROLOGY: NEW ONSET DIZZINESS OR NEUROLOGICAL CHANGES NOT MENTIONED NO . NEW NUMBNESS OR PAIN PATTERNS NOT MENTIONED AND PERTINENT TO TODAY'S VISIT NO . CARDIOLOGY: NEW CHEST PRESSURE NO . PATIENT DENIES NO . RESPIRATORY: UNEXPLAINABLE COUGH NO . NEW SHORTNESS OF BREATH NO . VITAL SIGNS WT 412.2 LBS, HT 72 IN, BMI 55.90 INDEX, BP 147/79 MM HG, HR 105 /MIN, RR 20 /MIN, TEMP 97.1 F, OXYGEN SAT % 97%, SAFE IN ENV? (Y/N) YES, NA INITIALS IA 14:27, REVIEWED BY: NATHALY DUDLEY MA. EXAMINATION GENERAL EXAMINATION: GENERALNO ACUTE DISTRESS, WELL NOURISHED AND HYDRATED. PSYCHAPPROPRIATE MOOD AND AFFECT . LUNGS:CLEAR TO AUSCULTATION BILATERALLY, NO WHEEZES, RHONCHI, RALES. HEART:NO MURMURS, REGULAR RATE AND RHYTHM. ASSESSMENTS INTERVERTEBRAL DISC DISORDER WITH RADICULOPATHY OF LUMBOSACRAL REGION - M51.17 (PRIMARY) TREATMENT INTERVERTEBRAL DISC DISORDER WITH RADICULOPATHY OF LUMBOSACRAL REGION NOTES: 30-YEAR-OLD MALE IN FOR CHRONIC PAIN FOLLOW-UP. INFORMED PATIENT WE WOULD LOOK INTO THE APPEAL REGARDING HIS LUMBAR EPIDURAL STEROID INJECTION. HE IS CURRENTLY ON MEDICATIONS FROM ANOTHER PROVIDER AND ADMITS THAT THIS HAS BEEN BENEFICIAL. PATIENT HAS EXPRESSED UNDERSTANDING OF AND WAS IN AGREEMENT WITH TREATMENT PLAN. GIVEN TIME TO ASK QUESTIONS AND EXPRESS CONCERNS. . PROCEDURE CODES FA211 ESTABILISHED PATIENT [facility] CHARGE DISPOSITION & COMMUNICATION FOLLOW UP 2 MONTHS (REASON: LOW BACK PAIN) ELECTRONICALLY SIGNED BY GRAYSON POLK ON 06/13/2020 AT 08:27 AM EDT DISCLAIMER : THIS IS A VISIT SUMMARY EXTRACTED FROM THE [facility] CHART. IT IS NOT A COPY OF THE [facility] PROGRESS NOTE. CALLUM
== END ==
LOC: M PAIN 14:30
PROVIDERS: ATTEND Family Medicine
DX: M51.17 Intervertebral disc disorders with radiculopathy, lumbosacral region (principal); E66.01 Morbid (severe) obesity due to excess calories; Z68.43 Body mass index [BMI] 50.0-59.9, adult; J45.909 Unspecified asthma, uncomplicated; I10 Essential (primary) hypertension; Z79.891 Long term (current) use of opiate analgesic; Z79.899 Other long term (current) drug therapy

== ENCOUNTER → 2020-06-22 | Outpatient (CLI) | payer MEDICARE, OTHER | LOC: M LABSMTC 10:39 | PROVIDERS: ATTEND Anesthesiology | DX: Z11.52 Encounter for screening for COVID-19 (principal) ==

== ENCOUNTER → 2020-06-27 | Outpatient (CLI) | payer MEDICARE, OTHER ==
[~2020-06-27] MED LIST changes: +ISOVUE-M 300 61% 15ML VIAL As Ordered ONE; +LIDOCAINE 1% SDV 30ML VIAL As Ordered ONE; +NORCO, ANEXSIA 5/325MG TABLET (HYDROcodone/ACETAMINOPHEN) As Ordered ONE; +diazePAM 5MG TABLET As Ordered ONE; +methylPREDNISolone SUSP 40MG/ML 1ML VIAL (DEPO MEDROL) As Ordered ONE
--- NOTE | 2020-06-27 11:33 | REP ---
INDICATION: LUMBAR EPIDURAL STEROID INJECTION. COMPARISON: None. TECHNIQUE: Three C-arm views lower lumbar spine. FINDINGS: A needle is seen at L4-5. A small amount of contrast is injected. IMPRESSION: 11 seconds of fluoroscopy time was utilized. <Electronically signed by Stepan Fuller > 06/27/20 1128
--- NOTE | 2020-06-29 00:31 | ECWPNPC ---
PATIENT NAME: GITA ANGELO : 1990 GENDER: MALE VISIT DATE: 06/27/2020 DISCHARGE DATE: 06/27/20 1140 VISIT LOCKED DATE TIME: PHYSICIAN: MERCEDES ALEXANDER MD PHYSICIAN PAGER NO: ACTIVE RESOURCE: MERCEDES ALEXANDER MD REASON FOR APPOINTMENT 1. LUMBAR EPIDURAL STEROID INJECTION HISTORY OF PRESENT ILLNESS GENERAL: -. FALL RISK SCREENING: SCREENING : NO FALLS REPORTED IN THE LAST YEAR. PAIN SCREENING: PATIENT HAS A COMPLAINT OF ACUTE OR CHRONIC PAIN :YES LOCATION OF PAIN:LOW BACK INTENSITY OF PAIN (SCALE OF 1 TO 10):8 WHAT DOES YOUR PAIN FEEL LIKE:SHARP, SHOOTING DURATION:CONTINOUS PAIN IS INCREASED BY:ACTIVITIES, PROLONGED STANDING PAIN IS DECREASED BY:SITTING, OTHERS LYING DOWN NURSING NOTE: -. PAIN CENTER INTAKE QUESTIONS: DO YOU HAVE A HISTORY OF MRSA? :NO DO YOU TAKE A BLOOD THINNERS? :NO DO YOU HAVE ANY BLEEDING DISORDERS? :NO ANY NEW NUMBNESS OR WEAKNESS IN YOUR LEGS OR ARMS? :NO ANY PACEMAKER,DEFIBRILLATOR, OR DORSAL COLUMN STIMULATOR? :NO DO YOU HAVE ANY RASHES OR OPEN SORES? :NO ARE YOU ALLERGIC TO IV DYE? :NO ARE YOU DIABETIC? :NO ANY NEW PROBLEMS WITH YOUR MEDICATIONS? :NO HAVE YOU RECEIVED A VACCINE IN THE PAST 30 DAYS? :NO DO YOU PLAN TO RECEIVE A VACCINE IN THE NEXT 21 DAYS? :NO DO YOU TAKE ANY IMMUNOSUPPRESSIVE MEDICATIONS? :NO ANY HISTORY OF SEIZURES? :NO ANY HISTORY OF CARDIAC ISSUES OR EVENTS? :NO DO YOU HAVE ANY KIDNEY OR LIVER DISEASE? :NO DO YOU HAVE SLEEP APNEA? :NO ANY RECENT HEAD INJURY? :NO DO YOU HAVE ANY NEW INFECTIONS? :NO IS THERE A CHANCE YOU COULD BE ? :NO ARE YOU BREAST FEEDING? :NO WHEN DID YOU LAST EAT? : -06/26/20 WHEN DID YOU LAST DRINK? : -0800 06/27/20 WHAT DID YOU LAST DRINK? : -WATER NAME OF PERSON DRIVING YOU HOME? : -MOM (DEBBIE) DO YOU HAVE ANY OTHER QUESTIONS OR CONCERNS? : -NO CURRENT MEDICATIONS TAKING LISINOPRIL 5 MG TABLET 1 TABLET ORALLY ONCE A DAY, NOTES: 06/26/20 0900 TAKING TRAMADOL HCL 50 MG TABLET 1 TABLET NEEDED FOR BACK PAIN ORALLY EVERY 6 HOURS NEEDED, NOTES: 2-3 DAYS AGO TAKING BACLOFEN 10 MG TABLET TAKE 1 TABLET BY MOUTH TWICE DAILY NEEDED ORAL TWICE A DAY TAKING VENTOLIN HFA 108 (90 BASE) MCG/ACT AEROSOL SOLUTION 2 PUFFS NEEDED INHALATION EVERY 4 HRS TAKING DULOXETINE HCL 60 MG CAPSULE DELAYED RELEASE PARTICLES 1 CAPSULE ORALLY ONCE A DAY TAKING TOPIRAMATE 50 MG TABLET 1 TAB ORALLY BID TAKING DICLOFENAC SODIUM 75 MG TABLET DELAYED RELEASE 1 TABLET WITH FOOD OR MILK ORALLY TWICE A DAY NOT-TAKING CHLORTHALIDONE 25 MG TABLET 1 TABLET IN THE MORNING WITH FOOD ORALLY ONCE A DAY, NOTES: LAST DOSE 04/25/2020 NOT-TAKING DULOXETINE HCL 60 MG CAPSULE DELAYED RELEASE PARTICLES 1 CAPSULE ORALLY ONCE A DAY, NOTES: DUPLICATE NOT-TAKING FLONASE ALLERGY RELIEF 50 MCG/ACT SUSPENSION 1 SPRAY IN EACH NOSTRIL NASALLY ONCE A DAY NOT-TAKING CYCLOBENZAPRINE HCL 10 MG TABLET 1 TABLET NEEDED ORALLY THREE TIMES A DAY (MDD=30MG) NOT-TAKING GABAPENTIN 100 MG CAPSULE 1 CAPSULE ORALLY TID NOT-TAKING LIDODERM 5 % PATCH 1 PATCH TO INTACT SKIN REMOVE AFTER 12 HOURS EXTERNALLY ONCE A DAY ON FOR 12 HOURS, OFF FOR 12 HOURS NOT-TAKING LIDOCAINE 4 % CREAM 1 APPLICATION TO AFFECTED AREA NEEDED EXTERNALLY THREE TIMES A DAY NOT-TAKING TRIAMCINOLONE ACETONIDE 0.1 % OINTMENT 1 APPLICATION TO AFFECTED AREA EXTERNALLY TWICE A DAY NOT-TAKING FLEXERIL 5 MG TABLET 1 TABLET NEEDED ORALLY THREE TIMES A DAY PRN MUSCLE SPASM MEDICATION LIST REVIEWED AND RECONCILED WITH THE PATIENT PAST MEDICAL HISTORY OBESITY, MORBID, BMI 40.0-49.9 LOW BACK PAIN RADIATING TO LEFT LEG STRAIN OF LUMBAR REGION UNCOMPLICATED ASTHMA, UNSPECIFIED ASTHMA SEVERITY HTN ALLERGIES SEASONAL ALLERGIES: CONGESTION - ALLERGY SOCIAL HISTORY GENERAL: TOBACCO USE ARE YOU A:NONSMOKER LATEX QUESTIONNAIRE LATEX ALLERGY : HAVE YOU EVER DEVELOPED ANY TYPE OF REACTION AFTER HANDLING LATEX PRODUCTS SUCH RUBBER GLOVES, CONDOMS, DIAPHRAGMS, BALLOONS, SOCKS, OR UNDERWEAR?NO LATEX ALLERGY : HAVE YOU EVER DEVELOPED ANY TYPE OF REACTION DURING OR AFTER DENTAL APPOINTMENT, VAGINAL/RECTAL EXAMINATION, SURGICAL PROCEDURE, OR ANY OTHER EXPOSURE?NO DATE ASKED : 06/09/2020 LATEX RISK : HAVE YOU EVER HAD ANY DIFFICULTY BREATHING OR HIVES AFTER EATING OR HANDLING ANY FRUITS, OR VEGETABLES; SUCH KIWI, BANANAS, STONE FRUITS, OR CHESTNUTSNO LATEX RISK : DO YOU HAVE A PREVIOUS PERSONAL HISTORY OF MORE THAN NINE SURGERIES, SPINA BIFIDA, OR REPEATED CATHERIZATIONS? NO LATEX RISK : ARE YOU FREQUENTLY EXPOSED TO LATEX PRODUCTS IN YOUR OCCUPATION?NO ALCOHOL USE: NO. BMI CARE GOAL FOLLOW-UP ABOVE NORMAL BMI FOLLOW-UPDIETARY MANAGEMENT EDUCATION, GUIDANCE, AND COUNSELING ALCOHOL SCREENING DID YOU HAVE A DRINK CONTAINING ALCOHOL IN THE PAST YEAR?NO POINTS0 INTERPRETATIONNEGATIVE RECREATIONAL DRUG USE DRUG USE?NO CAFFEINE 1-2/DAY. SEXUAL HX HAD SEX IN THE LAST 12 MONTHS (VAGINAL, ORAL, OR ANAL)?NO HAVE YOU EVER HAD AN STD?NO HIV / HEP-C SCREENING HIV TEST OFFERED TO PATIENT:YES DATE OFFERED:12/29/2018 TEST ACCEPTED:NO HEP-C TEST OFFERED TO PATIENT:NO REASON:PATIENT DECLINED BROCHURE PROVIDED TO PATIENTYES EPISCOPAL [id number] NONE LANGUAGE LANGUAGES SPOKEN:GERMAN EDUCATION LEVEL OF EDUCATION:HIGH SCHOOL LEARNING BARRIERS / SPECIAL NEEDS CHANGE FROM LAST VISIT?NO BARRIERS TO LEARNING?NO HEARING IMPAIRED?NO VISION IMPAIRED?YES COGNITIVELY IMPAIRED?NO :CORRECTIVE LENSES GLASSES READINESS TO LEARN?YES LEARNING PREFERENCES?NO LEARNING CAPABILITIES PRESENT?YES EMOTIONAL BARRIERS?NO SPECIAL DEVICES?NO SOLIDS CONTROL TECHNICIAN NEEDED?NO OCCUPATION: UNEMPLOYED. DIET: REGULAR. EXERCISE: NO REGULAR EXERCISE. MARITAL STATUS: SINGLE. OTHERS AT HOME: MOTHER. HOUSING: PARENTS HOME. VITAL SIGNS WT 413.0 LBS, HT 72 IN, BMI 56.01 INDEX, BP 146/72 MM HG, HR 93 /MIN, RR 18 /MIN, TEMP 98.3 F, OXYGEN SAT % 97%, SAFE IN ENV? (Y/N) YES, NA INITIALS AW 1003REVIEWED. 06/27/20 1027 Krys RAMEY RN. EXAMINATION GENERAL EXAMINATION: THE PATIENT IS ALERT, ORIENTED TIMES THREE AND COOPERATIVE. LUNGS ARE CLEAR TO AUSCULTATION. HEART SHOWS REGULAR RHYTHM, NO MURMURS AND NO GALLOPS. ASSESSMENTS INTERVERTEBRAL DISC DISORDERS WITH RADICULOPATHY, LUMBAR REGION - M51.16 (PRIMARY) TREATMENT INTERVERTEBRAL DISC DISORDERS WITH RADICULOPATHY, LUMBAR REGION [facility] FLUORO GUIDE SPINE INJECTION (PAIN)[id number] MEDICATION: VALIUM TAB 5MG ORALLY (DIAZEPAM)DANNY TAPIA 06/27/2020 10:23:14 AM > VERIFIED. PRESTON RAMEY RN 06/27/2020 10:30:03 AM > ADMINISTERED. COMPLETION OF PROCEDURAL VISIT WHEN MEETS CRITERIA MED: PAIN NORCO TABLET 5MG/325MG ORALLY HYDROCODONE/ACETAMINOPHENSYLVERDANNY Christopher 06/27/2020 10:23:25 AM > VERIFIED. PRESTON RAMEY RN 06/27/2020 10:30:22 AM > ADMINISTERED. PROCEDURES PAIN NURSING RECORD PROCEDURE IN ROOM 1057, PHYSICIAN IN ROOM 1107, START 1112, FINISH 1117, PHYSICIAN OUT OF ROOM 1120, OUT OF ROOM 1125, ECG NORMAL SINUS, PATIENT SHIELDED YES, SAFETY STRAP YES, PREP BETADINE Krys RAMEY RN, DRESSING TEGADERM DR. ALEXANDER LOC: 1100, 1. ALERT, ORIENTED 1117, LOC REMAINED AT BASELINE THROUGHOUT THE PROCEDURE, 1130 1. ALERT, ORIENTED RESP: 1100, 1. REGULAR, NO DYSPNEA 1111, 1. REGULAR, NO DYSPNEA 1124, 1. REGULAR, NO DYSPNEA 1130, 1. REGULAR, NO DYSPNEA COLOR: 1100, 1. PINK 1111, 1. PINK 1124, 1. PINK 1130 , 1. PINK SKIN: 1100, 1. WARM, DRY 1111, 1. WARM, DRY 1124, 1. WARM, DRY 1130, 1. WARM, DRY POSITION: 1100, 1. PRONE 1111, 1. PRONE 1124, 1. PRONE 1130, 5. SITTING VITALS: 1100 94-16 141/83 97% 1111 90-16 145/80 96% 1124 93-16 144/78 97% 1130 95-16 168/79 97% NOTES Krys RAMEY RN COMPLETION OF PROCEDURE APPOINTMENT: POST PAIN 5, DRESSING SITE DRY AND INTACT, IV N/A, GAIT STEADY, TEACHING COMPLETED, PATIENT ACKNOWLEDGES UNDERSTANDING YES, PROCEDURE APPOINTMENT COMPLETED AT 1139 PRE PROCEDURE DIAGNOSIS LUMBAR DISC DISORDER WITH RADICULOPATHY POST PROCEDURE DIAGNOSIS LUMBAR DISC DISORDER WITH RADICULOPATHY PROCEDURE LUMBAR EPIDURAL STEROID INJECTION UNDER FLUOROSCOPIC GUIDANCE SURGEON DR. MERCEDES ALEXANDER CORNER CUTTER NONE ANESTHESIA LOCAL PRE PROCEDURE NOTE THE PATIENT HAS A HISTORY OF CHRONIC LOW BACK PAIN. I EVALUATED THE PATIENT AND REVIEWED THE CHART. I WENT OVER THE RISKS, ALTERNATIVES, AND BENEFITS ASSOCIATED WITH THIS PROCEDURE. THE PATIENT WOULD LIKE TO PROCEED AND GIVE CONSENT TO PERFORMED THE PROCEDURE. THE PATIENT DENIES UNEXPLAINABLE WEIGHT LOSS, FEVER, CHILLS, OR NEW CHANGES IN URINARY OR BOWEL CONTROL. THE PATIENT IS COVID-19 NEGATIVE DESCRIPTION OF PROCEDURE THE PATIENT WAS BROUGHT TO THE PROCEDURE ROOM AND PLACED IN THE PRONE POSITION. THE LUMBOSACRAL AREA WAS CLEANED WITH BETADINE SOLUTION AND DRAPED ASEPTICALLY. THE PROCEDURE WAS DONE UNDER STERILE CONDITIONS. A TIMEOUT WAS PERFORMED WHERE THE CONSENTED SITE WAS VERIFIED WITH EVERYONE IN THE ROOM. UNDER FLUOROSCOPIC GUIDANCE, THE TARGET POINT WAS SELECTED AT THE INTERLAMINAR LEVEL OF L4-L5. I CONFIRMED AGAIN THE SITE OF TARGET. LIDOCAINE WAS USED TO NUMB THE SKIN AND THE SUBCUTANEOUS TISSUE BELOW IT. EPIDURAL TUOHY NEEDLE, 17-GAUGE, WAS ADVANCED UNDER FLUOROSCOPIC GUIDANCE AND FOLLOWING PATIENT FEEDBACK UNTIL THE EPIDURAL SPACE WAS REACHED 10 CM DEEP INTO THE SKIN BY THE LOSS OF RESISTANCE TECHNIQUE. ISOVUE-M DYE 30%, 0.25 ML, WAS INJECTED SHOWING ADEQUATE SPREAD OF THE DYE. THEN, A SOLUTION OF 3 ML OF NORMAL SALINE WITH DEPO-MEDROL 40 MG WAS INJECTED SLOWLY FOLLOWING PATIENT FEEDBACK. THE MEDICATIONS WERE VERIFIED WITH THE NURSE. THERE WAS NO EVIDENCE OF BLOOD, PARESTHESIA OR CEREBROSPINAL FLUID DURING THE PROCEDURE. THE PATIENT WAS SENT TO THE RECOVERY ROOM. THE PATIENT WAS MOVING THE EXTREMITIES AND DOING WELL. THERE WERE NO COMPLICATIONS DURING THE PROCEDURE. ESTIMATED BLOOD LOSS WAS LESS THAN 5 ML. FLUOROSCOPY TIME WAS 11 SECONDS POST PROCEDURE NOTE THE PATIENT WILL BE SEEN IN A FOLLOW UP IN THE NEXT FEW WEEKS. I AM LOOKING FOR LONG LASTING RELIEF FOR THE PATIENT WITH THIS INTERVENTION. INSTRUCTIONS WERE GIVEN, QUESTIONS WERE ANSWERED, AND THE PATIENT EXPRESSED UNDERSTANDING AND AGREES WITH THE PLAN. I, MARGUERITE QIU, DOCUMENTED THE ABOVE INFORMATION ACTING A SCRIBE FOR DR. ALEXANDER. I HAVE REVIEWED THE ABOVE DOCUMENT, WRITTEN BY MARGUERITE QIU, STYLE ADVISOR, AND I VERIFY THAT IT IS ACCURATE PAT COMPLETED 06/23/20 @1530 TBRADLEYRN. PROCEDURE CODES 44174 LUMBAR/SACRAL W/ IMAGING DISPOSITION & COMMUNICATION FOLLOW UP FOLLOW UP WITH ASSISTANT DIRECTOR OF FINANCIAL AID (REASON: POST LUMBAR EPIDURAL STEROID INJECTION ) ELECTRONICALLY SIGNED BY MERCEDES ALEXANDER MD, MD ON 06/28/2020 AT 03:30 PM EDT DISCLAIMER : THIS IS A VISIT SUMMARY EXTRACTED FROM THE [employer] CHART. IT IS NOT A COPY OF THE [employer] PROGRESS NOTE. CALLUM
== END ==
LOC: M PAIN 10:20
PROVIDERS: ATTEND Anesthesiology
DX: M51.16 Intervertebral disc disorders with radiculopathy, lumbar region (principal); E66.01 Morbid (severe) obesity due to excess calories; Z68.42 Body mass index [BMI] 45.0-49.9, adult; I10 Essential (primary) hypertension; J45.909 Unspecified asthma, uncomplicated; Z79.891 Long term (current) use of opiate analgesic; Z79.899 Other long term (current) drug therapy
CPT/HCPCS: 62323; J1030; Q9967

== ENCOUNTER → 2020-07-13 | Outpatient (CLI) | payer MEDICARE, OTHER ==
[~2020-07-13] MED LIST changes: -ISOVUE-M 300 61% 15ML VIAL As Ordered ONE; -LIDOCAINE 1% SDV 30ML VIAL As Ordered ONE; -NORCO, ANEXSIA 5/325MG TABLET (HYDROcodone/ACETAMINOPHEN) As Ordered ONE; -diazePAM 5MG TABLET As Ordered ONE; -methylPREDNISolone SUSP 40MG/ML 1ML VIAL (DEPO MEDROL) As Ordered ONE
--- NOTE | 2020-07-15 01:49 | ECWPNPC ---
PATIENT NAME: GITA ANGELO : 1990 GENDER: MALE VISIT DATE: 07/13/2020 DISCHARGE DATE: 07/13/20927 VISIT LOCKED DATE TIME: PHYSICIAN: LATOSHA WILHELM PHYSICIAN PAGER NO: ACTIVE RESOURCE: LATOSHA WILHELM REASON FOR APPOINTMENT 1. POST LUMBAR EPIDURAL STEROID INJECTION HISTORY OF PRESENT ILLNESS GENERAL: -30-YEAR-OLD MALE IN FOR POST EPIDURAL STEROID INJECTION FOLLOW-UP. HE FEELS THE PROCEDURE WAS SUCCESSFUL OVERALL RATING HIS PAIN PREPROCEDURE AT AN 8 OUT OF 10 AND POSTPROCEDURE AT A 4-5 OUT OF 10. HE FURTHER STATES THE PROCEDURE CONTINUES TO HELP HIM TODAY RATING HIS PAIN AT A 4/10 AND DESCRIBING IT SHARP. FALL RISK SCREENING: SCREENING : NO FALLS REPORTED IN THE LAST YEAR. PAIN SCREENING: PATIENT HAS A COMPLAINT OF ACUTE OR CHRONIC PAIN :YES LOCATION OF PAIN:LOW BACK INTENSITY OF PAIN (SCALE OF 1 TO 10):4 WHAT DOES YOUR PAIN FEEL LIKE:SHARP DURATION:INTERMITTENT PAIN IS INCREASED BY:ACTIVITIES PAIN IS DECREASED BY:SITTING NURSING NOTE: -. PAIN CENTER INTAKE QUESTIONS: DO YOU HAVE A HISTORY OF MRSA? :NO DO YOU TAKE A BLOOD THINNERS? :NO DO YOU HAVE ANY BLEEDING DISORDERS? :NO ANY NEW NUMBNESS OR WEAKNESS IN YOUR LEGS OR ARMS? :NO ANY PACEMAKER,DEFIBRILLATOR, OR DORSAL COLUMN STIMULATOR? :NO DO YOU HAVE ANY RASHES OR OPEN SORES? :NO ARE YOU ALLERGIC TO IV DYE? :NO ARE YOU DIABETIC? :NO ANY NEW PROBLEMS WITH YOUR MEDICATIONS? :NO HAVE YOU RECEIVED A VACCINE IN THE PAST 30 DAYS? :NO DO YOU PLAN TO RECEIVE A VACCINE IN THE NEXT 21 DAYS? :NO DO YOU NEED ANY PRESCRIPTION? :NO DO YOU TAKE ANY IMMUNOSUPPRESSIVE MEDICATIONS? :NO DO YOU HAVE ANY KIDNEY OR LIVER DISEASE? :NO IS THERE A CHANCE YOU COULD BE ? :NO ARE YOU BREAST FEEDING? :NO CURRENT MEDICATIONS TAKING LISINOPRIL 5 MG TABLET 1 TABLET ORALLY ONCE A DAY TAKING TRAMADOL HCL 50 MG TABLET 1 TABLET NEEDED FOR BACK PAIN ORALLY EVERY 6 HOURS NEEDED TAKING BACLOFEN 10 MG TABLET TAKE 1 TABLET BY MOUTH TWICE DAILY NEEDED ORAL TWICE A DAY TAKING VENTOLIN HFA 108 (90 BASE) MCG/ACT AEROSOL SOLUTION 2 PUFFS NEEDED INHALATION EVERY 4 HRS TAKING DULOXETINE HCL 60 MG CAPSULE DELAYED RELEASE PARTICLES 1 CAPSULE ORALLY ONCE A DAY TAKING TOPIRAMATE 50 MG TABLET 1 TAB ORALLY BID TAKING DICLOFENAC SODIUM 75 MG TABLET DELAYED RELEASE 1 TABLET WITH FOOD OR MILK ORALLY TWICE A DAY NOT-TAKING CHLORTHALIDONE 25 MG TABLET 1 TABLET IN THE MORNING WITH FOOD ORALLY ONCE A DAY, NOTES: LAST DOSE 04/25/2020 NOT-TAKING DULOXETINE HCL 60 MG CAPSULE DELAYED RELEASE PARTICLES 1 CAPSULE ORALLY ONCE A DAY, NOTES: DUPLICATE NOT-TAKING FLONASE ALLERGY RELIEF 50 MCG/ACT SUSPENSION 1 SPRAY IN EACH NOSTRIL NASALLY ONCE A DAY NOT-TAKING CYCLOBENZAPRINE HCL 10 MG TABLET 1 TABLET NEEDED ORALLY THREE TIMES A DAY (MDD=30MG) NOT-TAKING GABAPENTIN 100 MG CAPSULE 1 CAPSULE ORALLY TID NOT-TAKING LIDODERM 5 % PATCH 1 PATCH TO INTACT SKIN REMOVE AFTER 12 HOURS EXTERNALLY ONCE A DAY ON FOR 12 HOURS, OFF FOR 12 HOURS NOT-TAKING LIDOCAINE 4 % CREAM 1 APPLICATION TO AFFECTED AREA NEEDED EXTERNALLY THREE TIMES A DAY NOT-TAKING TRIAMCINOLONE ACETONIDE 0.1 % OINTMENT 1 APPLICATION TO AFFECTED AREA EXTERNALLY TWICE A DAY NOT-TAKING FLEXERIL 5 MG TABLET 1 TABLET NEEDED ORALLY THREE TIMES A DAY PRN MUSCLE SPASM MEDICATION LIST REVIEWED AND RECONCILED WITH THE PATIENT PAST MEDICAL HISTORY OBESITY, MORBID, BMI 40.0-49.9 LOW BACK PAIN RADIATING TO LEFT LEG STRAIN OF LUMBAR REGION UNCOMPLICATED ASTHMA, UNSPECIFIED ASTHMA SEVERITY HTN ALLERGIES SEASONAL ALLERGIES: CONGESTION - ALLERGY SOCIAL HISTORY GENERAL: TOBACCO USE ARE YOU A:NONSMOKER LATEX QUESTIONNAIRE LATEX ALLERGY : HAVE YOU EVER DEVELOPED ANY TYPE OF REACTION AFTER HANDLING LATEX PRODUCTS SUCH RUBBER GLOVES, CONDOMS, DIAPHRAGMS, BALLOONS, SOCKS, OR UNDERWEAR?NO LATEX ALLERGY : HAVE YOU EVER DEVELOPED ANY TYPE OF REACTION DURING OR AFTER DENTAL APPOINTMENT, VAGINAL/RECTAL EXAMINATION, SURGICAL PROCEDURE, OR ANY OTHER EXPOSURE?NO LATEX RISK : HAVE YOU EVER HAD ANY DIFFICULTY BREATHING OR HIVES AFTER EATING OR HANDLING ANY FRUITS, OR VEGETABLES; SUCH KIWI, BANANAS, STONE FRUITS, OR CHESTNUTSNO LATEX RISK : DO YOU HAVE A PREVIOUS PERSONAL HISTORY OF MORE THAN NINE SURGERIES, SPINA BIFIDA, OR REPEATED CATHERIZATIONS? NO LATEX RISK : ARE YOU FREQUENTLY EXPOSED TO LATEX PRODUCTS IN YOUR OCCUPATION?NO DATE ASKED : 07/13/2020 ALCOHOL USE: NO. BMI CARE GOAL FOLLOW-UP ABOVE NORMAL BMI FOLLOW-UPDIETARY MANAGEMENT EDUCATION, GUIDANCE, AND COUNSELING ALCOHOL SCREENING DID YOU HAVE A DRINK CONTAINING ALCOHOL IN THE PAST YEAR?NO POINTS0 INTERPRETATIONNEGATIVE RECREATIONAL DRUG USE DRUG USE?NO CAFFEINE 1-2/DAY. SEXUAL HX HAD SEX IN THE LAST 12 MONTHS (VAGINAL, ORAL, OR ANAL)?NO HAVE YOU EVER HAD AN STD?NO HIV / HEP-C SCREENING HIV TEST OFFERED TO PATIENT:YES DATE OFFERED:12/29/2018 TEST ACCEPTED:NO HEP-C TEST OFFERED TO PATIENT:NO REASON:PATIENT DECLINED BROCHURE PROVIDED TO PATIENTYES TENRIISM [id number] NONE LANGUAGE LANGUAGES SPOKEN:BRITISH EDUCATION LEVEL OF EDUCATION:HIGH SCHOOL LEARNING BARRIERS / SPECIAL NEEDS CHANGE FROM LAST VISIT?NO BARRIERS TO LEARNING?NO HEARING IMPAIRED?NO VISION IMPAIRED?YES :CORRECTIVE LENSES GLASSES COGNITIVELY IMPAIRED?NO READINESS TO LEARN?YES LEARNING PREFERENCES?NO LEARNING CAPABILITIES PRESENT?YES EMOTIONAL BARRIERS?NO SPECIAL DEVICES?NO BILLING ASSOCIATE NEEDED?NO OCCUPATION: UNEMPLOYED. DIET: REGULAR. EXERCISE: NO REGULAR EXERCISE. MARITAL STATUS: SINGLE. OTHERS AT HOME: MOTHER. HOUSING: PARENTS HOME. REVIEW OF SYSTEMS CONSTITUTIONAL: ANY RECENT FEVER NO . CHILLS NO . WEIGHT CHANGE OF UNKNOWN REASONS NO . GASTROENTEROLOGY: NEW UNEXPLAINABLE CHANGES IN BOWEL CONTROL NO . CONSTIPATION NO . GENITOURINARY: ANY NEW CHANGE IN BLADDER CONTROL? NO . NEUROLOGY: NEW ONSET DIZZINESS OR NEUROLOGICAL CHANGES NOT MENTIONED NO . NEW NUMBNESS OR PAIN PATTERNS NOT MENTIONED AND PERTINENT TO TODAY'S VISIT NO . CARDIOLOGY: NEW CHEST PRESSURE NO . PATIENT DENIES NO . RESPIRATORY: UNEXPLAINABLE COUGH NO . NEW SHORTNESS OF BREATH NO . VITAL SIGNS WT 410.2 LBS, HT 72 IN, BMI 55.63 INDEX, BP 143/82 MM HG, HR 87 /MIN, RR 18 /MIN, TEMP 97.2 F, OXYGEN SAT % 95%, SAFE IN ENV? (Y/N) YES, NA INITIALS WV 09:09T.DANIELLE SANDOVAL. EXAMINATION GENERAL EXAMINATION: GENERALNO ACUTE DISTRESS, WELL NOURISHED AND HYDRATED. PSYCHAPPROPRIATE MOOD AND AFFECT . LUNGS:CLEAR TO AUSCULTATION BILATERALLY, NO WHEEZES, RHONCHI, RALES. HEART:NO MURMURS, REGULAR RATE AND RHYTHM. ASSESSMENTS OTHER CHRONIC PAIN - G89.29 (PRIMARY) INTERVERTEBRAL DISC DISORDER WITH RADICULOPATHY OF LUMBOSACRAL REGION - M51.17 TREATMENT OTHER CHRONIC PAIN PAIN PROCEDURE LOGDATE OF PROCEDURE06/27/2020 LUMBAR EPIDURAL STEROID INJECTIONPROCEDURE:LUMBAR EPIDURAL STEROID INJECTIONAMOUNT OF PRE SEDATENORCO 5/325MG, VALIUM 5MGRESULT:PRE-11/01 POST -08/01 CONTINUES TO HELP TODAY INTERVERTEBRAL DISC DISORDER WITH RADICULOPATHY OF LUMBOSACRAL REGION NOTES: 30-YEAR-OLD MALE IN FOR POST LUMBAR EPIDURAL STEROID INJECTION FOLLOW-UP. GIVEN PRESENTING SYMPTOMS RECOMMEND FOLLOW-UP IN 2 MONTHS. PATIENT HAS EXPRESSED UNDERSTANDING OF AND WAS IN AGREEMENT WITH TREATMENT PLAN. GIVEN TIME TO ASK QUESTIONS AND EXPRESS CONCERNS. PROCEDURE CODES [id number] ESTABIL[address] PATIENT [facility] CHARGE DISPOSITION & COMMUNICATION FOLLOW UP 2 MONTHS (REASON: LOW BACK PAIN ) ELECTRONICALLY SIGNED BY GRAYSON POLK ON 07/14/2020 AT 08:27 AM EDT DISCLAIMER : THIS IS A VISIT SUMMARY EXTRACTED FROM THE [employer] CHART. IT IS NOT A COPY OF THE [employer] PROGRESS NOTE. CALLUM
== END ==
LOC: M PAIN 09:15
PROVIDERS: ATTEND Family Medicine
DX: M51.17 Intervertebral disc disorders with radiculopathy, lumbosacral region (principal); G89.29 Other chronic pain; J45.909 Unspecified asthma, uncomplicated; E66.01 Morbid (severe) obesity due to excess calories; Z68.43 Body mass index [BMI] 50.0-59.9, adult; Z79.899 Other long term (current) drug therapy

== ENCOUNTER → 2020-09-13 | Outpatient (CLI) | payer MEDICARE, OTHER ==
--- NOTE | 2020-09-15 03:58 | ECWPNPC ---
PATIENT NAME: GITA ANGELO : 1990 GENDER: MALE VISIT DATE: 09/13/2020 DISCHARGE DATE: 09/13/20 0945 VISIT LOCKED DATE TIME: PHYSICIAN: LATOSHA WILHELM PHYSICIAN PAGER NO: ACTIVE RESOURCE: LATOSHA WILHELM REASON FOR APPOINTMENT 1. LOW BACK PAIN HISTORY OF PRESENT ILLNESS GENERAL: HPI 30-YEAR-OLD MALE IN FOR CHRONIC PAIN FOLLOW-UP. HE RATES HIS PAIN CURRENTLY AT A 6 OUT OF 10. HE FEELS HIS MEDICATIONS ARE HELPFUL AND DENIES MED SIDE EFFECTS AT THIS TIME.. -. FALL RISK SCREENING: SCREENING : NO FALLS REPORTED IN THE LAST YEAR. PAIN SCREENING: PATIENT HAS A COMPLAINT OF ACUTE OR CHRONIC PAIN :YES LOCATION OF PAIN:LOW BACK, LEG(S) LEFT LEG INTENSITY OF PAIN (SCALE OF 1 TO 10):6 WHAT DOES YOUR PAIN FEEL LIKE:INTERMITTENT, SHARP, THROBBING DURATION:MAINLY DURING THE DAY FIRST THING IN THE MORNING IS WORSE PAIN IS INCREASED BY:PROLONGED STANDING PAIN IS DECREASED BY:USE OF PAIN MEDICATIONS, OTHERS HEAT, REST NURSING NOTE: -. PAIN CENTER INTAKE QUESTIONS: DO YOU HAVE A HISTORY OF MRSA? :NO DO YOU TAKE A BLOOD THINNERS? :NO DO YOU HAVE ANY BLEEDING DISORDERS? :NO ANY NEW NUMBNESS OR WEAKNESS IN YOUR LEGS OR ARMS? :NO ANY PACEMAKER,DEFIBRILLATOR, OR DORSAL COLUMN STIMULATOR? :NO DO YOU HAVE ANY RASHES OR OPEN SORES? :NO ARE YOU ALLERGIC TO IV DYE? :NO ARE YOU DIABETIC? :NO ANY NEW PROBLEMS WITH YOUR MEDICATIONS? :NO HAVE YOU RECEIVED A VACCINE IN THE PAST 30 DAYS? :NO DO YOU PLAN TO RECEIVE A VACCINE IN THE NEXT 21 DAYS? :NO DO YOU NEED ANY PRESCRIPTION? :NO DO YOU TAKE ANY IMMUNOSUPPRESSIVE MEDICATIONS? :NO DO YOU HAVE ANY KIDNEY OR LIVER DISEASE? :NO IS THERE A CHANCE YOU COULD BE ? :NO ARE YOU BREAST FEEDING? :NO CURRENT MEDICATIONS TAKING LISINOPRIL 5 MG TABLET 1 TABLET ORALLY ONCE A DAY TAKING TRAMADOL HCL 50 MG TABLET 1 TABLET NEEDED FOR BACK PAIN ORALLY EVERY 6 HOURS NEEDED TAKING VENTOLIN HFA 108 (90 BASE) MCG/ACT AEROSOL SOLUTION 2 PUFFS NEEDED INHALATION EVERY 4 HRS TAKING DULOXETINE HCL 60 MG CAPSULE DELAYED RELEASE PARTICLES 1 CAPSULE ORALLY ONCE A DAY TAKING TOPIRAMATE 50 MG TABLET 1 TAB ORALLY BID TAKING DICLOFENAC SODIUM 75 MG TABLET DELAYED RELEASE 1 TABLET WITH FOOD OR MILK ORALLY TWICE A DAY TAKING BACLOFEN 10 MG TABLET TAKE 1 TABLET BY MOUTH TWICE DAILY NEEDED ORAL TWICE A DAY NOT-TAKING CHLORTHALIDONE 25 MG TABLET 1 TABLET IN THE MORNING WITH FOOD ORALLY ONCE A DAY, NOTES: LAST DOSE 04/25/2020 NOT-TAKING DULOXETINE HCL 60 MG CAPSULE DELAYED RELEASE PARTICLES 1 CAPSULE ORALLY ONCE A DAY, NOTES: DUPLICATE NOT-TAKING FLONASE ALLERGY RELIEF 50 MCG/ACT SUSPENSION 1 SPRAY IN EACH NOSTRIL NASALLY ONCE A DAY NOT-TAKING CYCLOBENZAPRINE HCL 10 MG TABLET 1 TABLET NEEDED ORALLY THREE TIMES A DAY (MDD=30MG) NOT-TAKING GABAPENTIN 100 MG CAPSULE 1 CAPSULE ORALLY TID NOT-TAKING LIDODERM 5 % PATCH 1 PATCH TO INTACT SKIN REMOVE AFTER 12 HOURS EXTERNALLY ONCE A DAY ON FOR 12 HOURS, OFF FOR 12 HOURS NOT-TAKING LIDOCAINE 4 % CREAM 1 APPLICATION TO AFFECTED AREA NEEDED EXTERNALLY THREE TIMES A DAY NOT-TAKING TRIAMCINOLONE ACETONIDE 0.1 % OINTMENT 1 APPLICATION TO AFFECTED AREA EXTERNALLY TWICE A DAY NOT-TAKING FLEXERIL 5 MG TABLET 1 TABLET NEEDED ORALLY THREE TIMES A DAY PRN MUSCLE SPASM MEDICATION LIST REVIEWED AND RECONCILED WITH THE PATIENT PAST MEDICAL HISTORY OBESITY, MORBID, BMI 40.0-49.9 LOW BACK PAIN RADIATING TO LEFT LEG STRAIN OF LUMBAR REGION UNCOMPLICATED ASTHMA, UNSPECIFIED ASTHMA SEVERITY HTN ALLERGIES SEASONAL ALLERGIES: CONGESTION - ALLERGY SOCIAL HISTORY GENERAL: TOBACCO USE ARE YOU A:NONSMOKER LATEX QUESTIONNAIRE LATEX ALLERGY : HAVE YOU EVER DEVELOPED ANY TYPE OF REACTION AFTER HANDLING LATEX PRODUCTS SUCH RUBBER GLOVES, CONDOMS, DIAPHRAGMS, BALLOONS, SOCKS, OR UNDERWEAR?NO LATEX ALLERGY : HAVE YOU EVER DEVELOPED ANY TYPE OF REACTION DURING OR AFTER DENTAL APPOINTMENT, VAGINAL/RECTAL EXAMINATION, SURGICAL PROCEDURE, OR ANY OTHER EXPOSURE?NO LATEX RISK : HAVE YOU EVER HAD ANY DIFFICULTY BREATHING OR HIVES AFTER EATING OR HANDLING ANY FRUITS, OR VEGETABLES; SUCH KIWI, BANANAS, STONE FRUITS, OR CHESTNUTSNO LATEX RISK : DO YOU HAVE A PREVIOUS PERSONAL HISTORY OF MORE THAN NINE SURGERIES, SPINA BIFIDA, OR REPEATED CATHERIZATIONS? NO LATEX RISK : ARE YOU FREQUENTLY EXPOSED TO LATEX PRODUCTS IN YOUR OCCUPATION?NO DATE ASKED : 09/13/2020 ALCOHOL USE: NO. BMI CARE GOAL FOLLOW-UP ABOVE NORMAL BMI FOLLOW-UPDIETARY MANAGEMENT EDUCATION, GUIDANCE, AND COUNSELING ALCOHOL SCREENING DID YOU HAVE A DRINK CONTAINING ALCOHOL IN THE PAST YEAR?NO POINTS0 INTERPRETATIONNEGATIVE RECREATIONAL DRUG USE DRUG USE?NO CAFFEINE 1-2/DAY. SEXUAL HX HAD SEX IN THE LAST 12 MONTHS (VAGINAL, ORAL, OR ANAL)?NO HAVE YOU EVER HAD AN STD?NO HIV / HEP-C SCREENING HIV TEST OFFERED TO PATIENT:YES DATE OFFERED:12/29/2018 TEST ACCEPTED:NO HEP-C TEST OFFERED TO PATIENT:NO REASON:PATIENT DECLINED BROCHURE PROVIDED TO PATIENTYES SCIENTOLOGY [id number] NONE LANGUAGE LANGUAGES SPOKEN:ICELANDIC EDUCATION LEVEL OF EDUCATION:HIGH SCHOOL LEARNING BARRIERS / SPECIAL NEEDS CHANGE FROM LAST VISIT?NO BARRIERS TO LEARNING?NO HEARING IMPAIRED?NO VISION IMPAIRED?YES COGNITIVELY IMPAIRED?NO :CORRECTIVE LENSES GLASSES READINESS TO LEARN?YES LEARNING PREFERENCES?NO LEARNING CAPABILITIES PRESENT?YES EMOTIONAL BARRIERS?NO SPECIAL DEVICES?NO CLOUD DEVELOPER NEEDED?NO DOMESTIC VIOLENCE DO YOU FEEL SAFE IN YOUR ENVIRONMENT?YES OCCUPATION: UNEMPLOYED. DIET: REGULAR. EXERCISE: NO REGULAR EXERCISE. MARITAL STATUS: SINGLE. OTHERS AT HOME: MOTHER. HOUSING: PARENTS HOME. REVIEW OF SYSTEMS CONSTITUTIONAL: ANY RECENT FEVER NO . CHILLS NO . WEIGHT CHANGE OF UNKNOWN REASONS NO . GASTROENTEROLOGY: NEW UNEXPLAINABLE CHANGES IN BOWEL CONTROL NO . CONSTIPATION NO . GENITOURINARY: ANY NEW CHANGE IN BLADDER CONTROL? NO . NEUROLOGY: NEW ONSET DIZZINESS OR NEUROLOGICAL CHANGES NOT MENTIONED NO . NEW NUMBNESS OR PAIN PATTERNS NOT MENTIONED AND PERTINENT TO TODAY'S VISIT NO . CARDIOLOGY: NEW CHEST PRESSURE NO . PATIENT DENIES NO . RESPIRATORY: UNEXPLAINABLE COUGH NO . NEW SHORTNESS OF BREATH NO . VITAL SIGNS WT 415.2 LBS, HT 72 IN, BMI 56.31 INDEX, BP 159/83 MM HG, HR 86 /MIN, RR 18 /MIN, TEMP 97.1 F, OXYGEN SAT % 97%, SAFE IN ENV? (Y/N) YES, NA INITIALS AW 0936, REVIEWED BY: Chapin ROSSI RN. EXAMINATION GENERAL EXAMINATION: GENERALNO ACUTE DISTRESS, WELL NOURISHED AND HYDRATED. PSYCHAPPROPRIATE MOOD AND AFFECT . LUNGS:CLEAR TO AUSCULTATION BILATERALLY, NO WHEEZES, RHONCHI, RALES. HEART:NO MURMURS, REGULAR RATE AND RHYTHM. ASSESSMENTS INTERVERTEBRAL DISC DISORDER WITH RADICULOPATHY OF LUMBOSACRAL REGION - M51.17 (PRIMARY) TREATMENT INTERVERTEBRAL DISC DISORDER WITH RADICULOPATHY OF LUMBOSACRAL REGION NOTES: 30-YEAR-OLD MALE IN FOR CHRONIC PAIN FOLLOW-UP. GIVEN PRESENTING SYMPTOMS RECOMMEND FOLLOW-UP IN 1 MONTH. PATIENT HAS EXPRESSED UNDERSTANDING OF AND WAS IN AGREEMENT WITH TREATMENT PLAN. GIVEN TIME QUESTIONS AND EXPRESS CONCERNS. PROCEDURE CODES FA211 ESTABILISHED PATIENT [facility] CHARGE DISPOSITION & COMMUNICATION FOLLOW UP 4 WEEKS (REASON: LOW BACK PAIN ) ELECTRONICALLY SIGNED BY GRAYSON POLK ON 09/14/2020 AT 09:04 AM EDT DISCLAIMER : THIS IS A VISIT SUMMARY EXTRACTED FROM THE [facility] CHART. IT IS NOT A COPY OF THE [facility] PROGRESS NOTE. CALLUM
== END ==
LOC: M PAIN 10:00
PROVIDERS: ATTEND Family Medicine
DX: M51.17 Intervertebral disc disorders with radiculopathy, lumbosacral region (principal); E66.01 Morbid (severe) obesity due to excess calories; J45.909 Unspecified asthma, uncomplicated; I10 Essential (primary) hypertension; Z68.43 Body mass index [BMI] 50.0-59.9, adult; Z79.891 Long term (current) use of opiate analgesic; Z79.899 Other long term (current) drug therapy

== ENCOUNTER → 2020-10-13 | Outpatient (CLI) | payer MEDICARE, OTHER ==
--- NOTE | 2020-10-15 03:57 | ECWPNPC ---
PATIENT NAME: GITA ANGELO : 1990 GENDER: MALE VISIT DATE: 10/13/2020 DISCHARGE DATE: 10/13/20 1014 VISIT LOCKED DATE TIME: PHYSICIAN: LATOSHA WILHELM PHYSICIAN PAGER NO: ACTIVE RESOURCE: LATOSHA WILHELM REASON FOR APPOINTMENT 1. LOW BACK PAIN HISTORY OF PRESENT ILLNESS GENERAL: HPI 30-YEAR-OLD MALE IN FOR CHRONIC PAIN FOLLOW-UP. HE RATES HIS PAIN CURRENTLY AT A 7 OUT OF 10 AND DESCRIBES IT CONTINUOUS AND SHARP. PATIENT HAS HAD LUMBAR EPIDURAL STEROID INJECTIONS IN THE PAST WITH GOOD RELIEF EVIDENCED BY DECREASED PAIN AND INCREASED FUNCTIONALITY. WE WILL DISCUSS REPEAT PROCEDURES TODAY.. -. FALL RISK SCREENING: SCREENING : NO FALLS REPORTED IN THE LAST YEAR. PAIN SCREENING: PATIENT HAS A COMPLAINT OF ACUTE OR CHRONIC PAIN :YES LOCATION OF PAIN:LOW BACK INTENSITY OF PAIN (SCALE OF 1 TO 10):7 WHAT DOES YOUR PAIN FEEL LIKE:CONTINOUS, SHARP DURATION:CONTINOUS, CONSTANT, AWAKENS FROM SLEEP PAIN IS INCREASED BY:ACTIVITIES, PROLONGED STANDING PAIN IS DECREASED BY:USE OF PAIN MEDICATIONS, SITTING NURSING NOTE: -. PAIN CENTER INTAKE QUESTIONS: DO YOU HAVE A HISTORY OF MRSA? :NO DO YOU TAKE A BLOOD THINNERS? :NO DO YOU HAVE ANY BLEEDING DISORDERS? :NO ANY NEW NUMBNESS OR WEAKNESS IN YOUR LEGS OR ARMS? :NO ANY PACEMAKER,DEFIBRILLATOR, OR DORSAL COLUMN STIMULATOR? :NO DO YOU HAVE ANY RASHES OR OPEN SORES? :NO ARE YOU ALLERGIC TO IV DYE? :NO ARE YOU DIABETIC? :NO ANY NEW PROBLEMS WITH YOUR MEDICATIONS? :NO HAVE YOU RECEIVED A VACCINE IN THE PAST 30 DAYS? :NO DO YOU PLAN TO RECEIVE A VACCINE IN THE NEXT 21 DAYS? :NO DO YOU NEED ANY PRESCRIPTION? :NO DO YOU TAKE ANY IMMUNOSUPPRESSIVE MEDICATIONS? :NO DO YOU HAVE ANY KIDNEY OR LIVER DISEASE? :NO IS THERE A CHANCE YOU COULD BE ? :NO ARE YOU BREAST FEEDING? :NO CURRENT MEDICATIONS TAKING VENTOLIN HFA 108 (90 BASE) MCG/ACT AEROSOL SOLUTION 2 PUFFS NEEDED INHALATION EVERY 4 HRS TAKING DULOXETINE HCL 60 MG CAPSULE DELAYED RELEASE PARTICLES 1 CAPSULE ORALLY ONCE A DAY TAKING LISINOPRIL 5 MG TABLET 1 TABLET ORALLY ONCE A DAY TAKING TOPIRAMATE 50 MG TABLET 1 TAB ORALLY BID TAKING DICLOFENAC SODIUM 75 MG TABLET DELAYED RELEASE 1 TABLET WITH FOOD OR MILK ORALLY TWICE A DAY TAKING BACLOFEN 10 MG TABLET TAKE 1 TABLET BY MOUTH TWICE DAILY NEEDED ORAL TWICE A DAY TAKING TRAMADOL HCL 50 MG TABLET 1 TABLET NEEDED FOR BACK PAIN ORALLY EVERY 6 HOURS NEEDED NOT-TAKING CHLORTHALIDONE 25 MG TABLET 1 TABLET IN THE MORNING WITH FOOD ORALLY ONCE A DAY, NOTES: LAST DOSE 04/25/2020 NOT-TAKING DULOXETINE HCL 60 MG CAPSULE DELAYED RELEASE PARTICLES 1 CAPSULE ORALLY ONCE A DAY, NOTES: DUPLICATE NOT-TAKING FLONASE ALLERGY RELIEF 50 MCG/ACT SUSPENSION 1 SPRAY IN EACH NOSTRIL NASALLY ONCE A DAY NOT-TAKING CYCLOBENZAPRINE HCL 10 MG TABLET 1 TABLET NEEDED ORALLY THREE TIMES A DAY (MDD=30MG) NOT-TAKING GABAPENTIN 100 MG CAPSULE 1 CAPSULE ORALLY TID NOT-TAKING LIDODERM 5 % PATCH 1 PATCH TO INTACT SKIN REMOVE AFTER 12 HOURS EXTERNALLY ONCE A DAY ON FOR 12 HOURS, OFF FOR 12 HOURS NOT-TAKING LIDOCAINE 4 % CREAM 1 APPLICATION TO AFFECTED AREA NEEDED EXTERNALLY THREE TIMES A DAY NOT-TAKING TRIAMCINOLONE ACETONIDE 0.1 % OINTMENT 1 APPLICATION TO AFFECTED AREA EXTERNALLY TWICE A DAY NOT-TAKING FLEXERIL 5 MG TABLET 1 TABLET NEEDED ORALLY THREE TIMES A DAY PRN MUSCLE SPASM MEDICATION LIST REVIEWED AND RECONCILED WITH THE PATIENT PAST MEDICAL HISTORY OBESITY, MORBID, BMI 40.0-49.9 LOW BACK PAIN RADIATING TO LEFT LEG STRAIN OF LUMBAR REGION UNCOMPLICATED ASTHMA, UNSPECIFIED ASTHMA SEVERITY HTN ALLERGIES SEASONAL ALLERGIES: CONGESTION - ALLERGY SURGICAL HISTORY DENIES PAST SURGICAL HISTORY SOCIAL HISTORY GENERAL: TOBACCO USE ARE YOU A:NONSMOKER LATEX QUESTIONNAIRE LATEX ALLERGY : HAVE YOU EVER DEVELOPED ANY TYPE OF REACTION AFTER HANDLING LATEX PRODUCTS SUCH RUBBER GLOVES, CONDOMS, DIAPHRAGMS, BALLOONS, SOCKS, OR UNDERWEAR?NO LATEX ALLERGY : HAVE YOU EVER DEVELOPED ANY TYPE OF REACTION DURING OR AFTER DENTAL APPOINTMENT, VAGINAL/RECTAL EXAMINATION, SURGICAL PROCEDURE, OR ANY OTHER EXPOSURE?NO LATEX RISK : HAVE YOU EVER HAD ANY DIFFICULTY BREATHING OR HIVES AFTER EATING OR HANDLING ANY FRUITS, OR VEGETABLES; SUCH KIWI, BANANAS, STONE FRUITS, OR CHESTNUTSNO LATEX RISK : DO YOU HAVE A PREVIOUS PERSONAL HISTORY OF MORE THAN NINE SURGERIES, SPINA BIFIDA, OR REPEATED CATHERIZATIONS? NO LATEX RISK : ARE YOU FREQUENTLY EXPOSED TO LATEX PRODUCTS IN YOUR OCCUPATION?NO DATE ASKED : 10/13/2020 ALCOHOL USE: RARELY. BMI CARE GOAL FOLLOW-UP ABOVE NORMAL BMI FOLLOW-UPDIETARY MANAGEMENT EDUCATION, GUIDANCE, AND COUNSELING ALCOHOL SCREENING DID YOU HAVE A DRINK CONTAINING ALCOHOL IN THE PAST YEAR?NO POINTS0 INTERPRETATIONNEGATIVE RECREATIONAL DRUG USE DRUG USE?NO CAFFEINE 1-2/DAY. SEXUAL HX HAD SEX IN THE LAST 12 MONTHS (VAGINAL, ORAL, OR ANAL)?NO HAVE YOU EVER HAD AN STD?NO HIV / HEP-C SCREENING HIV TEST OFFERED TO PATIENT:YES DATE OFFERED:12/29/2018 TEST ACCEPTED:NO HEP-C TEST OFFERED TO PATIENT:NO REASON:PATIENT DECLINED BROCHURE PROVIDED TO PATIENTYES YAZIDI [id number] NONE LANGUAGE LANGUAGES SPOKEN:GUAMANIAN EDUCATION LEVEL OF EDUCATION:HIGH SCHOOL LEARNING BARRIERS / SPECIAL NEEDS CHANGE FROM LAST VISIT?NO BARRIERS TO LEARNING?NO HEARING IMPAIRED?NO VISION IMPAIRED?YES :CORRECTIVE LENSES GLASSES COGNITIVELY IMPAIRED?NO READINESS TO LEARN?YES LEARNING PREFERENCES?NO LEARNING CAPABILITIES PRESENT?YES EMOTIONAL BARRIERS?NO SPECIAL DEVICES?NO TRACK INSPECTING SUPERVISOR NEEDED?NO DOMESTIC VIOLENCE DO YOU FEEL SAFE IN YOUR ENVIRONMENT?YES OCCUPATION: UNEMPLOYED. DIET: REGULAR. EXERCISE: NO REGULAR EXERCISE. MARITAL STATUS: SINGLE. OTHERS AT HOME: MOTHER. HOUSING: PARENTS HOME. HOSPITALIZATION/MAJOR DIAGNOSTIC PROCEDURE RSV - CARTHAGE BACK PAIN 1 YRS OLD REVIEW OF SYSTEMS CONSTITUTIONAL: ANY RECENT FEVER NO . CHILLS NO . WEIGHT CHANGE OF UNKNOWN REASONS NO . GASTROENTEROLOGY: NEW UNEXPLAINABLE CHANGES IN BOWEL CONTROL NO . CONSTIPATION NO . GENITOURINARY: ANY NEW CHANGE IN BLADDER CONTROL? NO . NEUROLOGY: NEW ONSET DIZZINESS OR NEUROLOGICAL CHANGES NOT MENTIONED NO . NEW NUMBNESS OR PAIN PATTERNS NOT MENTIONED AND PERTINENT TO TODAY'S VISIT NO . CARDIOLOGY: NEW CHEST PRESSURE NO . PATIENT DENIES NO . RESPIRATORY: UNEXPLAINABLE COUGH NO . NEW SHORTNESS OF BREATH NO . VITAL SIGNS WT 409.2 LBS, HT 72 IN, BMI 55.49 INDEX, BP 158/84 MM HG, HR 91 /MIN, RR 18 /MIN, TEMP 97.7 F, OXYGEN SAT % 95%, SAFE IN ENV? (Y/N) YES, NA INITIALS WY 09:48, REVIEWED BY: NATHALY DUDLEY MA. EXAMINATION GENERAL EXAMINATION: GENERALNO ACUTE DISTRESS, WELL NOURISHED AND HYDRATED. PSYCHAPPROPRIATE MOOD AND AFFECT . LUNGS:CLEAR TO AUSCULTATION BILATERALLY, NO WHEEZES, RHONCHI, RALES. HEART:NO MURMURS, REGULAR RATE AND RHYTHM. BACK:POINT TENDER ALONG LUMBAR SPINE, POSITIVE MODIFIED SLR LEFT SIDE. MUSCULOSKELETAL:EQUAL STRENGTH OF THE LOWER EXTREMITIES BILATERALLY. ASSESSMENTS INTERVERTEBRAL DISC DISORDERS WITH RADICULOPATHY, LUMBOSACRAL REGION - M51.17 (PRIMARY) TREATMENT INTERVERTEBRAL DISC DISORDERS WITH RADICULOPATHY, LUMBOSACRAL REGION MED: PAIN NORCO TABLET 5MG/325MG ORALLY HYDROCODONE/ACETAMINOPHEN (ORDERED FOR 10/21/2020) MEDICATION: PAIN VALIUM TAB 5MG ORALLY (DIAZEPAM) (ORDERED FOR 10/21/2020) NOTES: 30-YEAR-OLD MALE IN FOR CHRONIC PAIN FOLLOW-UP. GIVEN PRESENTING SYMPTOMS AND RESULTS OF PHYSICAL EXAMINATION RECOMMEND LUMBAR EPIDURAL STEROID INJECTIONS WITH POSTPROCEDURAL FOLLOW-UP. PATIENT HAS EXPRESSED UNDERSTANDING OF AND WAS IN AGREEMENT WITH TREATMENT PLAN. GIVEN TIME ASKED QUESTIONS AND EXPRESS CONCERNS. CLINICAL NOTES: PREPROCEDURE AND PROCEDURE INFORMATION PRINTED AND PROVIDED TO PATIENT. PATIENT VERBALIZED AN UNDERSTANDING. JADYN DUDLEY MA. PROCEDURE CODES FA211 ESTABILISHED PATIENT [facility] CHARGE DISPOSITION & COMMUNICATION FOLLOW UP POST PROCEDURE (REASON: LUMBAR EPIDURAL STEROID INJECTION) ELECTRONICALLY SIGNED BY GRAYSON POLK ON 10/14/2020 AT 08:41 AM EDT DISCLAIMER : THIS IS A VISIT SUMMARY EXTRACTED FROM THE [facility] CHART. IT IS NOT A COPY OF THE [facility] PROGRESS NOTE. CALLUM
== END ==
LOC: M PAIN 10:00
PROVIDERS: ATTEND Family Medicine
DX: M51.17 Intervertebral disc disorders with radiculopathy, lumbosacral region (principal); E66.01 Morbid (severe) obesity due to excess calories; Z68.43 Body mass index [BMI] 50.0-59.9, adult; J45.909 Unspecified asthma, uncomplicated; I10 Essential (primary) hypertension; Z79.891 Long term (current) use of opiate analgesic; Z79.899 Other long term (current) drug therapy

== ENCOUNTER → 2020-10-22 | Outpatient (CLI) | payer MEDICARE, OTHER | LOC: M LABSMTC 09:11 | PROVIDERS: ATTEND Anesthesiology | DX: Z20.822 Contact with and (suspected) exposure to COVID-19 (principal) ==

== ENCOUNTER → 2020-10-27 | Outpatient (CLI) | payer MEDICARE, OTHER ==
[~2020-10-27] MED LIST changes: +ISOVUE-M 300 61% 15ML VIAL As Ordered ONE; +LIDOCAINE 1% SDV 30ML VIAL As Ordered ONE; +NORCO, ANEXSIA 5/325MG TABLET (HYDROcodone/ACETAMINOPHEN) As Ordered ONE; +diazePAM 5MG TABLET As Ordered ONE; +methylPREDNISolone SUSP 40MG/ML 1ML VIAL (DEPO MEDROL) As Ordered ONE
--- NOTE | 2020-10-27 12:50 | REP ---
INDICATION: LESI. COMPARISON: None. TECHNIQUE: Two C-arm views lower lumbar spine. FINDINGS: A needle is seen at L4-5 and a small amount of contrast is injected. IMPRESSION: 10 seconds of fluoroscopy time was utilized. <Electronically signed by Stepan Fuller > 10/27/20 [id number]
--- NOTE | 2020-11-02 01:23 | ECWPNPC ---
PATIENT NAME: GITA ANGELO : 1990 GENDER: MALE VISIT DATE: 10/27/2020 DISCHARGE DATE: 10/27/20 1145 VISIT LOCKED DATE TIME: PHYSICIAN: MERCEDES ALEXANDER MD PHYSICIAN PAGER NO: ACTIVE RESOURCE: MERCEDES ALEXANDER MD REASON FOR APPOINTMENT 1. LUMBAR EPIDURAL STEROID INJECTION HISTORY OF PRESENT ILLNESS GENERAL: -. FALL RISK SCREENING: SCREENING : NO FALLS REPORTED IN THE LAST YEAR. PAIN SCREENING: PATIENT HAS A COMPLAINT OF ACUTE OR CHRONIC PAIN :YES LOCATION OF PAIN:MID BACK, LOW BACK INTENSITY OF PAIN (SCALE OF 1 TO 10):7 WHAT DOES YOUR PAIN FEEL LIKE:ACHING, STABBING, SHOOTING DURATION:CONTINOUS PAIN IS INCREASED BY:ACTIVITIES PAIN IS DECREASED BY:SITTING NURSING NOTE: -. PAIN CENTER INTAKE QUESTIONS: DO YOU HAVE A HISTORY OF MRSA? :NO DO YOU TAKE A BLOOD THINNERS? :NO DO YOU HAVE ANY BLEEDING DISORDERS? :NO ANY NEW NUMBNESS OR WEAKNESS IN YOUR LEGS OR ARMS? :NO ANY PACEMAKER,DEFIBRILLATOR, OR DORSAL COLUMN STIMULATOR? :NO DO YOU HAVE ANY RASHES OR OPEN SORES? :NO ARE YOU ALLERGIC TO IV DYE? :NO ARE YOU DIABETIC? :NO ANY NEW PROBLEMS WITH YOUR MEDICATIONS? :NO HAVE YOU RECEIVED A VACCINE IN THE PAST 30 DAYS? :NO DO YOU PLAN TO RECEIVE A VACCINE IN THE NEXT 21 DAYS? :NO DO YOU TAKE ANY IMMUNOSUPPRESSIVE MEDICATIONS? :NO ANY HISTORY OF SEIZURES? :NO ANY HISTORY OF CARDIAC ISSUES OR EVENTS? :NO DO YOU HAVE ANY KIDNEY OR LIVER DISEASE? :NO DO YOU HAVE SLEEP APNEA? :NO ANY RECENT HEAD INJURY? :NO DO YOU HAVE ANY NEW INFECTIONS? :NO IS THERE A CHANCE YOU COULD BE ? :NO ARE YOU BREAST FEEDING? :NO WHEN DID YOU LAST EAT? : - WHEN DID YOU LAST DRINK? : -10/26/20@1900 WHAT DID YOU LAST DRINK? : -0700 TODAY NAME OF PERSON DRIVING YOU HOME? : -MOM DO YOU HAVE ANY OTHER QUESTIONS OR CONCERNS? : DENIES PAST MEDICAL HISTORY OBESITY, MORBID, BMI 40.0-49.9 LOW BACK PAIN RADIATING TO LEFT LEG STRAIN OF LUMBAR REGION UNCOMPLICATED ASTHMA, UNSPECIFIED ASTHMA SEVERITY HTN ALLERGIES SEASONAL ALLERGIES: CONGESTION - ALLERGY SOCIAL HISTORY GENERAL: TOBACCO USE ARE YOU A:NONSMOKER LATEX QUESTIONNAIRE LATEX ALLERGY : HAVE YOU EVER DEVELOPED ANY TYPE OF REACTION AFTER HANDLING LATEX PRODUCTS SUCH RUBBER GLOVES, CONDOMS, DIAPHRAGMS, BALLOONS, SOCKS, OR UNDERWEAR?NO LATEX ALLERGY : HAVE YOU EVER DEVELOPED ANY TYPE OF REACTION DURING OR AFTER DENTAL APPOINTMENT, VAGINAL/RECTAL EXAMINATION, SURGICAL PROCEDURE, OR ANY OTHER EXPOSURE?NO LATEX RISK : HAVE YOU EVER HAD ANY DIFFICULTY BREATHING OR HIVES AFTER EATING OR HANDLING ANY FRUITS, OR VEGETABLES; SUCH KIWI, BANANAS, STONE FRUITS, OR CHESTNUTSNO LATEX RISK : DO YOU HAVE A PREVIOUS PERSONAL HISTORY OF MORE THAN NINE SURGERIES, SPINA BIFIDA, OR REPEATED CATHERIZATIONS? NO LATEX RISK : ARE YOU FREQUENTLY EXPOSED TO LATEX PRODUCTS IN YOUR OCCUPATION?NO DATE ASKED : 10/13/2020 ALCOHOL USE: RARELY. BMI CARE GOAL FOLLOW-UP ABOVE NORMAL BMI FOLLOW-UPDIETARY MANAGEMENT EDUCATION, GUIDANCE, AND COUNSELING ALCOHOL SCREENING DID YOU HAVE A DRINK CONTAINING ALCOHOL IN THE PAST YEAR?NO POINTS0 INTERPRETATIONNEGATIVE RECREATIONAL DRUG USE DRUG USE?NO CAFFEINE 1-2/DAY. SEXUAL HX HAD SEX IN THE LAST 12 MONTHS (VAGINAL, ORAL, OR ANAL)?NO HAVE YOU EVER HAD AN STD?NO HIV / HEP-C SCREENING HIV TEST OFFERED TO PATIENT:YES DATE OFFERED:12/29/2018 TEST ACCEPTED:NO REASON:PATIENT DECLINED BROCHURE PROVIDED TO PATIENTYES HEP-C TEST OFFERED TO PATIENT:NO CHRISTIANITY [id number] NONE LANGUAGE LANGUAGES SPOKEN:CAMEROONIAN EDUCATION LEVEL OF EDUCATION:HIGH SCHOOL LEARNING BARRIERS / SPECIAL NEEDS CHANGE FROM LAST VISIT?NO BARRIERS TO LEARNING?NO HEARING IMPAIRED?NO VISION IMPAIRED?YES :CORRECTIVE LENSES GLASSES COGNITIVELY IMPAIRED?NO READINESS TO LEARN?YES LEARNING PREFERENCES?NO LEARNING CAPABILITIES PRESENT?YES EMOTIONAL BARRIERS?NO SPECIAL DEVICES?NO SOFTWARE DESIGN ENGINEER NEEDED?NO DOMESTIC VIOLENCE DO YOU FEEL SAFE IN YOUR ENVIRONMENT?YES OCCUPATION: UNEMPLOYED. DIET: REGULAR. EXERCISE: NO REGULAR EXERCISE. MARITAL STATUS: SINGLE. OTHERS AT HOME: MOTHER. HOUSING: PARENTS HOME. VITAL SIGNS WT 408.8 LBS, WT-KG 185.43 KG, HT 72 IN, BMI 55.44 INDEX, BP 160/87 MM HG, HR 89 /MIN, RR 18 /MIN, TEMP 97.0 F, OXYGEN SAT % 96%, SAFE IN ENV? (Y/N) Y, NA INITIALS ND 09:56, REVIEWED BY: INDIGO. EXAMINATION GENERAL: A HISTORY AND PHYSICAL EXAM ON THE PATIENT WAS DONE ON 10/13/2020(DATE OF ORIGINAL ASSESSMENT) IN PREPARATION OF SURGERY/PROCEDURE. I HAVE NOW REASSESSED THIS PATIENT'S HEALTH STATUS AND PERFORMED AN UPDATED EXAM TODAY. ALL CHANGES IN THE PATIENT'S HISTORY, PHYSICAL EXAM, PRE-EXISTING CONDITONS, AND INDICATIONS/CONTRAINDICATIONS TO THE PLANNED PROCEDURE AND ANESTHESIA ARE DOCUMENTED AND EVALUATED BELOW. I ATTEST TO THE ADEQUACY AND APPROPRIATENESS OF MY ASSESSMENT, AND CONFIRM THE NECESSITY FOR THE PLANNED PROCEDURE. THE PATIENT IS ALERT, ORIENTED TIMES THREE AND COOPERATIVE. LUNGS ARE CLEAR TO AUSCULTATION. HEART SHOWS REGULAR RHYTHM, NO MURMURS AND NO GALLOPS. ASSESSMENTS INTERVERTEBRAL DISC DISORDERS WITH RADICULOPATHY, LUMBOSACRAL REGION - M51.17 (PRIMARY) TREATMENT INTERVERTEBRAL DISC DISORDERS WITH RADICULOPATHY, LUMBOSACRAL REGION [facility] FLUORO GUIDE SPINE INJECTION (PAIN)[id number] COMPLETION OF PROCEDURAL VISIT WHEN MEETS [id number],TOM 10/27/2020 11:46:38 AM > CRITERIA MET @ 1145 MED: PAIN NORCO TABLET 5MG/325MG ORALLY HYDROCODONE/[id number],ELIZABETH 10/27/2020 10:38:05 AM > VERIFIED DUNG RHOADES 10/27/2020 10:40:15 AM > ADMINISTERED MEDICATION: PAIN VALIUM TAB 5MG ORALLY (DIAZEPAM)[id number] HOYOS 10/27/2020 10:38:21 AM > VERIFIED DUNG RHOADES 10/27/2020 10:40:38 AM > ADMINISTERED PROCEDURES PAIN NURSING RECORD PROCEDURE IN ROOM 1108, PHYSICIAN IN ROOM 1122, START 1127, ECG NORMAL SINUS, PATIENT SHIELDED NO, SAFETY STRAP YES, PREP BETADINE Ramona RHOADES RN, DRESSING TEGADERM DR. ALEXANDER LOC: 1. ALERT, ORIENTEDJF TOM 10/27/2020 11:17:46 AM > RESP: 1. REGULAR, NO DYSPNEAJFDUNG 10/27/2020 11:17:52 AM > COLOR: 1. PINKJFDUNG 10/27/2020 11:18:00 AM > SKIN: 1. WARM, DRYJFDUNG 10/27/2020 11:18:05 AM > POSITION: 1. PRONEJF TOM 10/27/2020 11:18:11 AM > VITALS: HR 81, 134/82, 97%, R1JF Juares TOM 10/27/2020 11:20:35 AM > HR 82, 132/84, 98%, R1JF Juares TOM 10/27/2020 11:32:46 AM > EXIT VITALS@ 1145 139/87, 84, 98% R 14 PAIN 3/10 INDIGO RHOADES RN COMPLETION OF PROCEDURE APPOINTMENT: POST PAIN 3, DRESSING SITE DRY AND INTACT, IV N/A, GAIT STEADY, TEACHING COMPLETED, PATIENT ACKNOWLEDGES UNDERSTANDING YES, PROCEDURE APPOINTMENT COMPLETED AT 1145 PRE PROCEDURE DIAGNOSIS LUMBAR DISC DISORDER WITH RADICULOPATHY POST PROCEDURE DIAGNOSIS LUMBAR DISC DISORDER WITH RADICULOPATHY PROCEDURE LUMBAR EPIDURAL STEROID INJECTION UNDER FLUOROSCOPIC GUIDANCE SURGEON DR. MERCEDES ALEXANDER ELECTRICIAN STATION ASSISTANT NONE ANESTHESIA LOCAL PRE PROCEDURE NOTE THE PATIENT HAS A HISTORY OF CHRONIC LOW BACK PAIN. I EVALUATED THE PATIENT AND REVIEWED THE CHART. I WENT OVER THE RISKS, ALTERNATIVES, AND BENEFITS ASSOCIATED WITH THIS PROCEDURE. THE PATIENT WOULD LIKE TO PROCEED AND GIVE CONSENT TO PERFORMED THE PROCEDURE. THE PATIENT DENIES UNEXPLAINABLE WEIGHT LOSS, FEVER, CHILLS, OR NEW CHANGES IN URINARY OR BOWEL CONTROL. THE PATIENT IS COVID-19 NEGATIVE DESCRIPTION OF PROCEDURE THE PATIENT WAS BROUGHT TO THE PROCEDURE ROOM AND PLACED IN THE PRONE POSITION. THE LUMBOSACRAL AREA WAS CLEANED WITH BETADINE SOLUTION AND DRAPED ASEPTICALLY. THE PROCEDURE WAS DONE UNDER STERILE CONDITIONS. A TIMEOUT WAS PERFORMED WHERE THE CONSENTED SITE WAS VERIFIED WITH EVERYONE IN THE ROOM. UNDER FLUOROSCOPIC GUIDANCE, THE TARGET POINT WAS SELECTED AT THE INTERLAMINAR LEVEL OF L4-L5. I CONFIRMED AGAIN THE SITE OF TARGET. LIDOCAINE WAS USED TO NUMB THE SKIN AND THE SUBCUTANEOUS TISSUE BELOW IT. EPIDURAL TUOHY NEEDLE, 17-GAUGE, WAS ADVANCED UNDER FLUOROSCOPIC GUIDANCE AND FOLLOWING PATIENT FEEDBACK UNTIL THE EPIDURAL SPACE WAS REACHED 10 CM DEEP INTO THE SKIN BY THE LOSS OF RESISTANCE TECHNIQUE. ISOVUE-M DYE 30%, 0.25 ML, WAS INJECTED SHOWING ADEQUATE SPREAD OF THE DYE. THEN, A SOLUTION OF 3 ML OF NORMAL SALINE WITH DEPO-MEDROL 40 MG WAS INJECTED SLOWLY FOLLOWING PATIENT FEEDBACK. THE MEDICATIONS WERE VERIFIED WITH THE NURSE. THERE WAS NO EVIDENCE OF BLOOD, PARESTHESIA OR CEREBROSPINAL FLUID DURING THE PROCEDURE. THE PATIENT WAS SENT TO THE RECOVERY ROOM. THE PATIENT WAS MOVING THE EXTREMITIES AND DOING WELL. THERE WERE NO COMPLICATIONS DURING THE PROCEDURE. ESTIMATED BLOOD LOSS WAS LESS THAN 5 ML. FLUOROSCOPY TIME WAS 9 SECONDS POST PROCEDURE NOTE THE PATIENT WILL BE SEEN IN A FOLLOW UP IN THE NEXT FEW WEEKS. I AM LOOKING FOR LONG LASTING RELIEF FOR THE PATIENT WITH THIS INTERVENTION. INSTRUCTIONS WERE GIVEN, QUESTIONS WERE ANSWERED, AND THE PATIENT EXPRESSED UNDERSTANDING AND AGREES WITH THE PLAN. I, MARGUERITE QIU, DOCUMENTED THE ABOVE INFORMATION ACTING A SCRIBE FOR DR. ALEXANDER. I HAVE REVIEWED THE ABOVE DOCUMENT, WRITTEN BY MARGUERITE QIU, FILTER OPERATOR, AND I VERIFY THAT IT IS ACCURATE VISIT CODES PROCEDURE CODES 23430 LUMBAR/SACRAL W/ IMAGING DISPOSITION & COMMUNICATION FOLLOW UP FOLLOW UP WITH EMPLOYEE BENEFITS INSURANCE AGENT (REASON: POST LUMBAR EPIDURAL STEROID INJECTION) ELECTRONICALLY SIGNED BY MERCEDES ALEXANDER MD, MD ON 11/01/2020 AT 01:32 PM EDT DISCLAIMER : THIS IS A VISIT SUMMARY EXTRACTED FROM THE [employer] CHART. IT IS NOT A COPY OF THE [employer] PROGRESS NOTE. CALLUM
== END ==
LOC: M PAIN 10:00
PROVIDERS: ATTEND Anesthesiology
DX: M51.17 Intervertebral disc disorders with radiculopathy, lumbosacral region (principal); E66.01 Morbid (severe) obesity due to excess calories; Z68.43 Body mass index [BMI] 50.0-59.9, adult; J45.909 Unspecified asthma, uncomplicated; I10 Essential (primary) hypertension
CPT/HCPCS: 62323; J1030; Q9967

== ENCOUNTER → 2020-11-23 | Outpatient (CLI) | payer MEDICARE, OTHER ==
[~2020-11-23] MED LIST changes: -ISOVUE-M 300 61% 15ML VIAL As Ordered ONE; -LIDOCAINE 1% SDV 30ML VIAL As Ordered ONE; -NORCO, ANEXSIA 5/325MG TABLET (HYDROcodone/ACETAMINOPHEN) As Ordered ONE; -diazePAM 5MG TABLET As Ordered ONE; -methylPREDNISolone SUSP 40MG/ML 1ML VIAL (DEPO MEDROL) As Ordered ONE
--- NOTE | 2020-11-23 08:47 | REP ---
INDICATION: SCROTAL MASS. COMPARISON: None. TECHNIQUE: Real-time sonographic evaluation of scrotum and contents performed. FINDINGS: The testicles are normal in size and echotexture, right testicle measuring 4.8 x 2.6 x 2.9 centimeters and left testicle 4.5 x 2.6 x 2.9 centimeters. There is no testicular mass or torsion. Blood flow is seen in each testicle with duplex Doppler evaluation. There is a 3 millimeter cyst of the tunica albuginea of the right testicle superomedially. The epididymis is unremarkable bilaterally. There is no significant hydrocele. IMPRESSION: There is a 3 millimeter cyst of the tunica albuginea of the right testicle superomedially. There are no other significant findings. <Electronically signed by Stepan Fuller > 11/23/20 0862
== END ==
LOC: M RAD 08:02
PROVIDERS: ATTEND Nurse Practitioner Family
DX: N50.89 Other specified disorders of the male genital organs (principal)

== ENCOUNTER → 2020-12-08 | Outpatient (CLI) | payer MEDICARE, OTHER ==
[~2020-12-08] MED LIST changes: -LISI-898; +LISI5TAB11
== END ==
LOC: M PAIN 09:45
PROVIDERS: ATTEND Anesthesiology
DX: G89.29 Other chronic pain (principal); M51.16 Intervertebral disc disorders with radiculopathy, lumbar region; E66.01 Morbid (severe) obesity due to excess calories; Z68.43 Body mass index [BMI] 50.0-59.9, adult; J45.909 Unspecified asthma, uncomplicated; I10 Essential (primary) hypertension; Z79.891 Long term (current) use of opiate analgesic; Z79.899 Other long term (current) drug therapy

== ENCOUNTER → 2021-04-19 | Outpatient (CLI) | payer MEDICARE, OTHER | LOC: M PAIN 09:45 | PROVIDERS: ATTEND Nurse Practitioner Family | DX: M51.16 Intervertebral disc disorders with radiculopathy, lumbar region (principal); G89.29 Other chronic pain; E66.01 Morbid (severe) obesity due to excess calories; Z68.43 Body mass index [BMI] 50.0-59.9, adult; Z79.899 Other long term (current) drug therapy ==

== ENCOUNTER → 2021-05-08 | Outpatient (CLI) | payer MEDICARE, OTHER | LOC: M PLAIMG 13:22 | PROVIDERS: ATTEND Nurse Practitioner Family | DX: M51.16 Intervertebral disc disorders with radiculopathy, lumbar region (principal) ==

== ENCOUNTER → 2021-05-11 | Outpatient (CLI) | payer MEDICARE, OTHER | LOC: M PAIN 13:30 | PROVIDERS: ATTEND Nurse Practitioner Family | DX: M51.16 Intervertebral disc disorders with radiculopathy, lumbar region (principal); E66.01 Morbid (severe) obesity due to excess calories; J45.909 Unspecified asthma, uncomplicated; I10 Essential (primary) hypertension; Z68.43 Body mass index [BMI] 50.0-59.9, adult; Z79.891 Long term (current) use of opiate analgesic; Z79.899 Other long term (current) drug therapy ==

== ENCOUNTER → 2021-05-23 | Outpatient (CLI) | payer MEDICARE, OTHER ==
[~2021-05-23] MED LIST changes: +ISOVUE-M 300 61% 15ML VIAL As Ordered ONE; +LIDOCAINE 1% SDV 30ML VIAL As Ordered ONE; +methylPREDNISolone SUSP 40MG/ML 1ML VIAL (DEPO MEDROL) As Ordered ONE
== END ==
LOC: M PAIN 09:30
PROVIDERS: ATTEND Anesthesiology
DX: M51.16 Intervertebral disc disorders with radiculopathy, lumbar region (principal); E66.01 Morbid (severe) obesity due to excess calories; Z68.43 Body mass index [BMI] 50.0-59.9, adult; J45.909 Unspecified asthma, uncomplicated; I10 Essential (primary) hypertension; Z79.891 Long term (current) use of opiate analgesic; Z79.899 Other long term (current) drug therapy
CPT/HCPCS: 62323; J1030; Q9967

== ENCOUNTER → 2021-06-20 | Outpatient (CLI) | payer MEDICARE, OTHER ==
[~2021-06-20] MED LIST changes: -ISOVUE-M 300 61% 15ML VIAL As Ordered ONE; -LIDOCAINE 1% SDV 30ML VIAL As Ordered ONE; -methylPREDNISolone SUSP 40MG/ML 1ML VIAL (DEPO MEDROL) As Ordered ONE
== END ==
LOC: M PAIN 10:00
PROVIDERS: ATTEND Nurse Practitioner Family
DX: M51.16 Intervertebral disc disorders with radiculopathy, lumbar region (principal); E66.01 Morbid (severe) obesity due to excess calories; Z68.43 Body mass index [BMI] 50.0-59.9, adult; J45.909 Unspecified asthma, uncomplicated; I10 Essential (primary) hypertension; Z79.891 Long term (current) use of opiate analgesic; Z79.899 Other long term (current) drug therapy

== ENCOUNTER → 2021-09-18 | Outpatient (CLI) | payer MEDICARE, OTHER | LOC: M PAIN 09:30 | PROVIDERS: ATTEND Nurse Practitioner Family | DX: M51.16 Intervertebral disc disorders with radiculopathy, lumbar region (principal); E66.01 Morbid (severe) obesity due to excess calories; J45.909 Unspecified asthma, uncomplicated; I10 Essential (primary) hypertension; Z68.42 Body mass index [BMI] 45.0-49.9, adult; N50.3 Cyst of epididymis; Z79.891 Long term (current) use of opiate analgesic; Z79.899 Other long term (current) drug therapy ==

== ENCOUNTER → 2021-10-26 | Outpatient (CLI) | payer MEDICARE, OTHER | LOC: M LABSMTC 09:12 | PROVIDERS: ATTEND Anesthesiology | DX: Z01.818 Encounter for other preprocedural examination (principal); Z11.52 Encounter for screening for COVID-19 ==

== ENCOUNTER → 2021-10-27 | Outpatient (CLI) | payer MEDICARE, OTHER ==
[2021-10-27 17:12] LABS: HEMOGLOBIN A1c 4.8 %
[2021-10-27 17:42] LABS: ALBUMIN 3.2 GM/DL (3.2-5.2); ALT/SGPT 80 U/L (12-78); BILIRUBIN,TOTAL 0.7 MG/DL (0.2-1.0); BLOOD UREA NITROGEN 13 MG/DL (7-18); CALCIUM LEVEL 9.2 MG/DL (8.5-10.1); CARBON DIOXIDE LEVEL 26 MEQ/L (21-32); CHLORIDE LEVEL 104 MEQ/L (98-107); CHOLESTEROL LEVEL 193 MG/DL (<200); CHOLESTEROL RISK RATIO 5.361 (<5); GLOMERULAR FILTRATION RATE > 60.0 (>60); GLUCOSE, FASTING 89 MG/DL (70-100); HDL CHOLESTEROL 36 MG/DL (>40); LDL CHOLESTEROL 137 MG/DL (<100); NON-HDL-C 157 MG/DL; POTASSIUM SERUM 4.8 MEQ/L (3.5-5.1); SODIUM LEVEL 137 MEQ/L (136-145); THYROID STIMULATING HORMONE < 0.005 uIU/ML (0.358-3.740); TOTAL PROTEIN 7.8 GM/DL (6.4-8.2); TRIGLYCERIDES LEVEL 101 MG/DL (<150)
[2021-10-27 17:58] LABS: TOTAL 25(OH) VITAMIN D 19.7 NG/ML (30.0-100.0)
== END ==
LOC: M WUC 11:44
PROVIDERS: ATTEND Physician Assistant
DX: I10 Essential (primary) hypertension (principal); Z79.899 Other long term (current) drug therapy

== ENCOUNTER → 2021-10-31 | Outpatient (CLI) | payer MEDICARE, OTHER ==
[~2021-10-31] MED LIST changes: +ISOVUE-M 300 61% 15ML VIAL As Ordered ONE; +LIDOCAINE 1% SDV 30ML VIAL As Ordered ONE; +methylPREDNISolone SUSP 40MG/ML 1ML VIAL (DEPO MEDROL) As Ordered ONE
== END ==
LOC: M PAIN 08:30
PROVIDERS: ATTEND Anesthesiology
DX: M51.16 Intervertebral disc disorders with radiculopathy, lumbar region (principal); E66.01 Morbid (severe) obesity due to excess calories; Z68.42 Body mass index [BMI] 45.0-49.9, adult; J45.909 Unspecified asthma, uncomplicated; I10 Essential (primary) hypertension; Z79.891 Long term (current) use of opiate analgesic; Z79.899 Other long term (current) drug therapy
CPT/HCPCS: 62323; J1030; Q9967

== ENCOUNTER → 2021-12-04 | Outpatient (CLI) | payer MEDICARE, OTHER ==
[~2021-12-04] MED LIST changes: -ISOVUE-M 300 61% 15ML VIAL As Ordered ONE; -LIDOCAINE 1% SDV 30ML VIAL As Ordered ONE; -methylPREDNISolone SUSP 40MG/ML 1ML VIAL (DEPO MEDROL) As Ordered ONE
== END ==
LOC: M PAIN 10:15
PROVIDERS: ATTEND Nurse Practitioner Family
DX: G89.29 Other chronic pain (principal); M51.16 Intervertebral disc disorders with radiculopathy, lumbar region; E66.01 Morbid (severe) obesity due to excess calories; Z68.42 Body mass index [BMI] 45.0-49.9, adult; J45.909 Unspecified asthma, uncomplicated; I10 Essential (primary) hypertension; N50.3 Cyst of epididymis; Z79.891 Long term (current) use of opiate analgesic; Z79.899 Other long term (current) drug therapy

== ENCOUNTER → 2022-02-05 | Outpatient (CLI) | payer MEDICARE, OTHER | LOC: M PAIN 10:00 | PROVIDERS: ATTEND Nurse Practitioner Family | DX: M51.16 Intervertebral disc disorders with radiculopathy, lumbar region (principal); E66.01 Morbid (severe) obesity due to excess calories; Z68.42 Body mass index [BMI] 45.0-49.9, adult; J45.909 Unspecified asthma, uncomplicated; I10 Essential (primary) hypertension; N50.3 Cyst of epididymis; Z79.891 Long term (current) use of opiate analgesic; Z79.899 Other long term (current) drug therapy ==

== ENCOUNTER → 2022-03-08 | Outpatient (CLI) | payer MEDICARE, OTHER | LOC: M LABSMTC 09:08 | PROVIDERS: ATTEND Anesthesiology | DX: Z01.818 Encounter for other preprocedural examination (principal); Z11.52 Encounter for screening for COVID-19 ==

== ENCOUNTER → 2022-03-13 | Outpatient (CLI) | payer MEDICARE, OTHER ==
[~2022-03-13] MED LIST changes: +ISOVUE-M 300 61% 15ML VIAL As Ordered ONE; +LIDOCAINE 1% SDV 30ML VIAL As Ordered ONE; +methylPREDNISolone SUSP 40MG/ML 1ML VIAL (DEPO MEDROL) As Ordered ONE
== END ==
LOC: M PAIN 11:00
PROVIDERS: ATTEND Anesthesiology
DX: M51.16 Intervertebral disc disorders with radiculopathy, lumbar region (principal); G89.29 Other chronic pain; J45.909 Unspecified asthma, uncomplicated; I10 Essential (primary) hypertension; E66.01 Morbid (severe) obesity due to excess calories; Z68.42 Body mass index [BMI] 45.0-49.9, adult; Z79.899 Other long term (current) drug therapy
CPT/HCPCS: 62323; J1030; Q9967

== ENCOUNTER → 2022-04-12 | Outpatient (CLI) | payer MEDICARE, OTHER ==
[~2022-04-12] MED LIST changes: -ISOVUE-M 300 61% 15ML VIAL As Ordered ONE; -LIDOCAINE 1% SDV 30ML VIAL As Ordered ONE; -methylPREDNISolone SUSP 40MG/ML 1ML VIAL (DEPO MEDROL) As Ordered ONE
[2022-04-12 13:06] LABS: FREE T4 1.5 NG/DL (0.89-1.76); THYROID STIMULATING HORMONE 0.008 uIU/ML (0.55-4.78)
== END ==
LOC: M WUC 08:34
PROVIDERS: ATTEND Physician Assistant
DX: R79.89 Other specified abnormal findings of blood chemistry (principal); E07.9 Disorder of thyroid, unspecified

== ENCOUNTER → 2022-06-08 | Outpatient (CLI) | payer MEDICARE, OTHER ==
[~2022-06-08] MED LIST changes: +TOPI-254; -TOPI50TA9
== END ==
LOC: M PAIN 10:00
PROVIDERS: ATTEND Nurse Practitioner Family
DX: M51.16 Intervertebral disc disorders with radiculopathy, lumbar region (principal); G89.29 Other chronic pain; E66.01 Morbid (severe) obesity due to excess calories; Z68.42 Body mass index [BMI] 45.0-49.9, adult; J45.909 Unspecified asthma, uncomplicated; I10 Essential (primary) hypertension; Z79.899 Other long term (current) drug therapy

== ENCOUNTER → 2022-06-21 | Outpatient (CLI) | payer MEDICARE, OTHER | LOC: M RAD 12:45 | PROVIDERS: ATTEND Internal Medicine Endocrinology, Diabetes & Metabolism | DX: R94.6 Abnormal results of thyroid function studies (principal) | CPT/HCPCS: 78012; A9516 ==

== ENCOUNTER → 2022-07-12 | Outpatient (CLI) | payer MEDICARE, OTHER | LOC: M RAD 12:07 | PROVIDERS: ATTEND Internal Medicine Endocrinology, Diabetes & Metabolism | DX: E05.10 Thyrotoxicosis with toxic single thyroid nodule without thyrotoxic crisis or storm (principal) | CPT/HCPCS: 79005; A9517 ==

== ENCOUNTER → 2022-07-13 | Outpatient (CLI) | payer MEDICARE, OTHER ==
[~2022-07-13] MED LIST changes: +ISOVUE-M 300 61% 15ML VIAL As Ordered ONE; +LIDOCAINE 1% SDV 30ML VIAL As Ordered ONE; +methylPREDNISolone SUSP 40MG/ML 1ML VIAL (DEPO MEDROL) As Ordered ONE
== END ==
LOC: M PAIN 08:00
PROVIDERS: ATTEND Anesthesiology
DX: M51.16 Intervertebral disc disorders with radiculopathy, lumbar region (principal); E66.01 Morbid (severe) obesity due to excess calories; J45.909 Unspecified asthma, uncomplicated; I10 Essential (primary) hypertension; Z79.891 Long term (current) use of opiate analgesic; Z79.899 Other long term (current) drug therapy; Z68.42 Body mass index [BMI] 45.0-49.9, adult
CPT/HCPCS: 62323; J1030; Q9967

== ENCOUNTER → 2022-08-09 | Outpatient (REF) | payer MEDICARE, OTHER ==
[~2022-08-09] MED LIST changes: -ISOVUE-M 300 61% 15ML VIAL As Ordered ONE; -LIDOCAINE 1% SDV 30ML VIAL As Ordered ONE; -methylPREDNISolone SUSP 40MG/ML 1ML VIAL (DEPO MEDROL) As Ordered ONE
[2022-08-09 17:46] LABS: BASO % 0.4 % (0.0-1.0); EOS # 0.2 10^3/uL (0.0-0.5); EOS % 2.1 % (0.0-3.0); HEMATOCRIT 43.8 % (42.0-52.0); LYMPH # 2.2 10^3/uL (1.5-5.0); LYMPH % 19.8 % (24.0-44.0); MEAN CORPUSCULAR HEMOGLOBIN 30.7 pg (27.0-33.0); MEAN CORPUSCULAR HGB CONC 34.2 g/dl (32.0-36.5); MEAN CORPUSCULAR VOLUME 89.8 fl (80.0-96.0); MONO # 0.8 10^3/uL (0.0-0.8); MONO % 7.1 % (2.0-8.0); NEUTROPHILS # 7.9 10^3/uL (1.5-8.5); NEUTROPHILS % 70.3 % (36.0-66.0); PLATELET COUNT, AUTOMATED 312 10^3/uL (150-450); RED BLOOD COUNT 4.88 10^6/uL (4.30-6.10); WHITE BLOOD COUNT 11.2 10^3/uL (4.0-10.0)
[2022-08-09 18:11] LABS: HEMOGLOBIN A1c 4.7 % (4.0-6.0)
[2022-08-09 18:17] LABS: ALBUMIN 3.2 G/DL (3.2-5.2); ALKALINE PHOSPHATASE 77 U/L (46-116); ALT/SGPT 73 U/L (7.0-40); AST/SGOT 42 U/L (<34); BILIRUBIN,TOTAL 0.5 MG/DL (0.3-1.2); BLOOD UREA NITROGEN 13 MG/DL (9-23); CARBON DIOXIDE LEVEL 22 MMOL/L (20-31); CHLORIDE LEVEL 105 MMOL/L (98-107); CHOLESTEROL LEVEL 162 MG/DL (<200); CHOLESTEROL RISK RATIO 4.56 (<5); CREATININE FOR GFR 0.86 MG/DL (0.70-1.30); FREE T4 1.87 NG/DL (0.89-1.76); GLOMERULAR FILTRATION RATE > 60.0 (>60); GLUCOSE, FASTING 92 MG/DL (60-100); HDL CHOLESTEROL 35.5 MG/DL (>40); LDL CHOLESTEROL 107.7 MG/DL (<100); NON-HDL-C 126.5 MG/DL; POTASSIUM SERUM 4.2 MMOL/L (3.5-5.1); SODIUM LEVEL 139 MMOL/L (136-145); TOTAL PROTEIN 7.2 G/DL (5.7-8.2); TRIGLYCERIDES LEVEL 94 MG/DL (<150)
[2022-08-09 18:18] LABS: THYROID STIMULATING HORMONE 0.008 uIU/ML (0.55-4.78)
[2022-08-09 18:19] LABS: TOTAL 25(OH) VITAMIN D 41.4 NG/ML (20.0-100.0)
== END ==
LOC: M LABWUC 16:54
PROVIDERS: ATTEND Physician Assistant
DX: E55.9 Vitamin D deficiency, unspecified (principal); R79.89 Other specified abnormal findings of blood chemistry; E66.01 Morbid (severe) obesity due to excess calories; E05.10 Thyrotoxicosis with toxic single thyroid nodule without thyrotoxic crisis or storm

== ENCOUNTER → 2022-08-09 | Outpatient (REF) | payer MEDICARE, OTHER ==
[2022-08-09 18:15] LABS: FREE T4 2.15 NG/DL (0.89-1.76); THYROID STIMULATING HORMONE 0.008 uIU/ML (0.55-4.78)
== END ==
LOC: M LABWUC 16:52
PROVIDERS: ATTEND Internal Medicine Endocrinology, Diabetes & Metabolism
DX: E05.10 Thyrotoxicosis with toxic single thyroid nodule without thyrotoxic crisis or storm (principal)

== ENCOUNTER → 2022-09-05 | Outpatient (CLI) | payer MEDICARE, OTHER | LOC: M PAIN 11:30 | PROVIDERS: ATTEND Anesthesiology | DX: M51.16 Intervertebral disc disorders with radiculopathy, lumbar region (principal); J45.20 Mild intermittent asthma, uncomplicated; F34.1 Dysthymic disorder; I10 Essential (primary) hypertension; K76.0 Fatty (change of) liver, not elsewhere classified; E66.9 Obesity, unspecified; R94.6 Abnormal results of thyroid function studies; Z79.891 Long term (current) use of opiate analgesic; Z79.899 Other long term (current) drug therapy ==

== ENCOUNTER → 2022-09-28 | Outpatient (REF) | payer MEDICARE, OTHER ==
[2022-09-28 15:08] LABS: FREE T4 0.59 NG/DL (0.89-1.76); THYROID STIMULATING HORMONE 2.285 uIU/ML (0.55-4.78)
== END ==
LOC: M LABWUC 12:40
PROVIDERS: ATTEND Nurse Practitioner Family
DX: E05.10 Thyrotoxicosis with toxic single thyroid nodule without thyrotoxic crisis or storm (principal)

== ENCOUNTER → 2022-11-07 | Outpatient (CLI) | payer MEDICARE, OTHER | LOC: M TMPAIN 14:30 → M PAIN 14:30 | PROVIDERS: ATTEND Anesthesiology | DX: M51.16 Intervertebral disc disorders with radiculopathy, lumbar region (principal); G89.29 Other chronic pain; J45.20 Mild intermittent asthma, uncomplicated; I10 Essential (primary) hypertension; Z79.899 Other long term (current) drug therapy ==

== ENCOUNTER → 2022-11-16 | Outpatient (CLI) | payer MEDICARE, OTHER ==
[2022-11-16 12:36] LABS: THYROID STIMULATING HORMONE 75.323 uIU/ML (0.55-4.78)
[2022-11-16 12:37] LABS: FREE T4 0.45 NG/DL (0.89-1.76)
== END ==
LOC: M WUC 09:30
PROVIDERS: ATTEND Nurse Practitioner Family
DX: E05.10 Thyrotoxicosis with toxic single thyroid nodule without thyrotoxic crisis or storm (principal)

== ENCOUNTER → 2022-11-16 | Outpatient (CLI) | payer MEDICARE, OTHER | LOC: M PAIN 08:00 | PROVIDERS: ATTEND Anesthesiology | DX: M51.16 Intervertebral disc disorders with radiculopathy, lumbar region (principal); G89.29 Other chronic pain; J45.20 Mild intermittent asthma, uncomplicated; F34.1 Dysthymic disorder; I10 Essential (primary) hypertension; K76.0 Fatty (change of) liver, not elsewhere classified; E66.9 Obesity, unspecified; E07.9 Disorder of thyroid, unspecified; Z68.42 Body mass index [BMI] 45.0-49.9, adult; Z79.891 Long term (current) use of opiate analgesic; Z79.899 Other long term (current) drug therapy | CPT/HCPCS: 36415; 84439; 84443; G0463 ==

== ENCOUNTER → 2023-01-15 | Outpatient (CLI) | payer MEDICARE, OTHER ==
[2023-01-15 17:14] LABS: FREE T4 0.92 NG/DL (0.89-1.76); THYROID STIMULATING HORMONE 12.98 uIU/ML (0.55-4.78)
== END ==
LOC: M WUC 12:43
PROVIDERS: ATTEND Nurse Practitioner Family
DX: E89.0 Postprocedural hypothyroidism (principal)

== ENCOUNTER → 2023-01-31 | Outpatient (CLI) | payer MEDICARE, MEDICAID | LOC: M PAIN 14:00 | PROVIDERS: ATTEND Anesthesiology | DX: M51.16 Intervertebral disc disorders with radiculopathy, lumbar region (principal); G89.29 Other chronic pain; J45.20 Mild intermittent asthma, uncomplicated; F34.1 Dysthymic disorder; I10 Essential (primary) hypertension; K76.0 Fatty (change of) liver, not elsewhere classified; E66.9 Obesity, unspecified; R94.6 Abnormal results of thyroid function studies; Z79.890 Hormone replacement therapy; Z79.891 Long term (current) use of opiate analgesic; Z79.899 Other long term (current) drug therapy ==

== ENCOUNTER → 2023-04-02 | Outpatient (CLI) | payer MEDICARE, MEDICAID ==
[~2023-04-02] MED LIST changes: +TOPI-21; -TOPI-254
== END ==
LOC: M PAIN 09:30
PROVIDERS: ATTEND Nurse Practitioner Family
DX: M51.16 Intervertebral disc disorders with radiculopathy, lumbar region (principal); G89.29 Other chronic pain; J45.20 Mild intermittent asthma, uncomplicated; I10 Essential (primary) hypertension; E66.9 Obesity, unspecified; Z68.43 Body mass index [BMI] 50.0-59.9, adult; Z79.890 Hormone replacement therapy; Z79.891 Long term (current) use of opiate analgesic; Z79.899 Other long term (current) drug therapy

== ENCOUNTER → 2023-04-15 | Outpatient (CLI) | payer MEDICARE, MEDICAID ==
[2023-04-15 11:43] LABS: THYROID STIMULATING HORMONE 9.504 uIU/ML (0.55-4.78)
[2023-04-15 11:44] LABS: FREE T4 1.08 NG/DL (0.89-1.76)
== END ==
LOC: M WUC 08:09
PROVIDERS: ATTEND Nurse Practitioner Family
DX: E89.0 Postprocedural hypothyroidism (principal)

== ENCOUNTER → 2023-04-23 | Outpatient (CLI) | payer MEDICARE, MEDICAID ==
[~2023-04-23] MED LIST changes: +ISOVUE-M 300 61% 15ML VIAL As Ordered ONE; +LIDOCAINE 1% SDV 30ML VIAL As Ordered ONE; +methylPREDNISolone SUSP 40MG/ML 1ML VIAL (DEPO MEDROL) As Ordered ONE
== END ==
LOC: M PAIN 15:00
PROVIDERS: ATTEND Anesthesiology
DX: M51.16 Intervertebral disc disorders with radiculopathy, lumbar region (principal); J45.20 Mild intermittent asthma, uncomplicated; F34.1 Dysthymic disorder; I10 Essential (primary) hypertension; E66.9 Obesity, unspecified; Z68.43 Body mass index [BMI] 50.0-59.9, adult; R94.6 Abnormal results of thyroid function studies; Z79.890 Hormone replacement therapy; Z79.891 Long term (current) use of opiate analgesic; Z79.899 Other long term (current) drug therapy
CPT/HCPCS: 62323; J1030; Q9967

== ENCOUNTER → 2023-05-09 | Outpatient (REF) | payer MEDICARE, MEDICAID ==
[~2023-05-09] MED LIST changes: -ISOVUE-M 300 61% 15ML VIAL As Ordered ONE; -LIDOCAINE 1% SDV 30ML VIAL As Ordered ONE; -methylPREDNISolone SUSP 40MG/ML 1ML VIAL (DEPO MEDROL) As Ordered ONE
[2023-05-09 11:42] LABS: FREE T4 1.19 NG/DL (0.89-1.76); THYROID STIMULATING HORMONE 5.341 uIU/ML (0.55-4.78)
== END ==
LOC: M LABWUC 10:14
PROVIDERS: ATTEND Nurse Practitioner Family
DX: E89.0 Postprocedural hypothyroidism (principal)

== ENCOUNTER → 2023-05-24 | Outpatient (CLI) | payer MEDICARE, MEDICAID | LOC: M PAIN 09:00 | PROVIDERS: ATTEND Nurse Practitioner Family | DX: M51.16 Intervertebral disc disorders with radiculopathy, lumbar region (principal); G89.29 Other chronic pain; J45.20 Mild intermittent asthma, uncomplicated; F34.1 Dysthymic disorder; I10 Essential (primary) hypertension; R94.6 Abnormal results of thyroid function studies; E66.9 Obesity, unspecified; Z79.890 Hormone replacement therapy; Z79.891 Long term (current) use of opiate analgesic; Z79.899 Other long term (current) drug therapy; Z68.43 Body mass index [BMI] 50.0-59.9, adult ==

== ENCOUNTER → 2023-07-25 | Outpatient (CLI) | payer MEDICARE, MEDICAID ==
[~2023-07-25] MED LIST changes: +TIZA4CAP3; -TIZA4CAP6
== END ==
LOC: M PAIN 09:30
PROVIDERS: ATTEND Nurse Practitioner Family
DX: M51.16 Intervertebral disc disorders with radiculopathy, lumbar region (principal); J45.20 Mild intermittent asthma, uncomplicated; F34.1 Dysthymic disorder; I10 Essential (primary) hypertension; E66.9 Obesity, unspecified; Z79.890 Hormone replacement therapy; Z79.891 Long term (current) use of opiate analgesic; Z79.899 Other long term (current) drug therapy

== ENCOUNTER → 2023-08-09 | Outpatient (CLI) | payer MEDICARE, MEDICAID ==
[2023-08-09 13:43] LABS: THYROID STIMULATING HORMONE 1.577 uIU/ML (0.55-4.78)
[2023-08-09 13:44] LABS: FREE T4 1.26 NG/DL (0.89-1.76)
== END ==
LOC: M WUC 09:32
PROVIDERS: ATTEND Nurse Practitioner Family
DX: E89.0 Postprocedural hypothyroidism (principal)

== ENCOUNTER → 2023-08-09 | Outpatient (CLI) | payer MEDICARE, MEDICAID ==
[2023-08-09 13:12] LABS: BASO # 0.1 10^3/uL (0.0-0.2); BASO % 0.6 % (0.0-1.0); EOS # 0.3 10^3/uL (0.0-0.5); EOS % 3.5 % (0.0-3.0); HEMATOCRIT 44.2 % (42.0-52.0); HEMOGLOBIN 15.3 g/dl (13.5-17.5); LYMPH # 2.3 10^3/uL (1.5-5.0); LYMPH % 25.8 % (24.0-44.0); MEAN CORPUSCULAR HEMOGLOBIN 31.9 pg (27.0-33.0); MEAN CORPUSCULAR HGB CONC 34.6 g/dl (32.0-36.5); MEAN CORPUSCULAR VOLUME 92.1 fl (80.0-96.0); MONO # 0.6 10^3/uL (0.0-0.8); MONO % 6.7 % (2.0-8.0); NEUTROPHILS # 5.6 10^3/uL (1.5-8.5); PLATELET COUNT, AUTOMATED 282 10^3/uL (150-450); WHITE BLOOD COUNT 8.9 10^3/uL (4.0-10.0)
[2023-08-09 13:45] LABS: ALBUMIN 3.3 G/DL (3.2-5.2); ALKALINE PHOSPHATASE 53 U/L (46-116); ALT/SGPT 86 U/L (7.0-40); AST/SGOT 49 U/L (<34); BILIRUBIN,TOTAL 0.6 MG/DL (0.3-1.2); BLOOD UREA NITROGEN 15 MG/DL (9-23); CALCIUM LEVEL 9.1 MG/DL (8.5-10.1); CARBON DIOXIDE LEVEL 27 MMOL/L (20-31); CHLORIDE LEVEL 105 MMOL/L (98-107); CHOLESTEROL LEVEL 195 MG/DL (<200); CHOLESTEROL RISK RATIO 5.65 (<5); CREATININE FOR GFR 1.04 MG/DL (0.70-1.30); GLOMERULAR FILTRATION RATE > 60.0 (>60); GLUCOSE, FASTING 86 MG/DL (60-100); HDL CHOLESTEROL 34.5 MG/DL (>40); HEMOGLOBIN A1c 4.8 % (4.0-6.0); LDL CHOLESTEROL 133.1 MG/DL (<100); NON-HDL-C 160.5 MG/DL; POTASSIUM SERUM 4.1 MMOL/L (3.5-5.1); SODIUM LEVEL 139 MMOL/L (136-145); TOTAL PROTEIN 7.1 G/DL (5.7-8.2); TRIGLYCERIDES LEVEL 137 MG/DL (<150)
[2023-08-09 13:46] LABS: FREE T4 1.26 NG/DL (0.89-1.76); THYROID STIMULATING HORMONE 1.658 uIU/ML (0.55-4.78); TOTAL 25(OH) VITAMIN D 37.3 NG/ML (20.0-100.0)
== END ==
LOC: M WUC 09:29
PROVIDERS: ATTEND Physician Assistant
DX: Z00.00 Encounter for general adult medical examination without abnormal findings (principal); I10 Essential (primary) hypertension; E55.9 Vitamin D deficiency, unspecified; K76.0 Fatty (change of) liver, not elsewhere classified; F34.1 Dysthymic disorder; E89.0 Postprocedural hypothyroidism; Z79.899 Other long term (current) drug therapy

== ENCOUNTER → 2023-09-06 | Outpatient (CLI) | payer MEDICARE, MEDICAID ==
[~2023-09-06] MED LIST changes: +ISOVUE-M 300 61% 15ML VIAL As Ordered ONE; +LIDOCAINE 1% SDV 30ML VIAL As Ordered ONE; +dexAMETHasone 10MG/1ML VIAL PRES.FREE As Ordered ONE
== END ==
LOC: M PAIN 08:15
PROVIDERS: ATTEND Anesthesiology
DX: M51.16 Intervertebral disc disorders with radiculopathy, lumbar region (principal); G89.29 Other chronic pain; J45.20 Mild intermittent asthma, uncomplicated; F34.1 Dysthymic disorder; I10 Essential (primary) hypertension; Z79.890 Hormone replacement therapy; E66.9 Obesity, unspecified; Z79.891 Long term (current) use of opiate analgesic; Z79.899 Other long term (current) drug therapy; Z68.43 Body mass index [BMI] 50.0-59.9, adult
CPT/HCPCS: 62323; J1100; Q9967

== ENCOUNTER → 2023-10-04 | Outpatient (CLI) | payer MEDICARE, MEDICAID ==
[~2023-10-04] MED LIST changes: -ISOVUE-M 300 61% 15ML VIAL As Ordered ONE; -LIDOCAINE 1% SDV 30ML VIAL As Ordered ONE; -dexAMETHasone 10MG/1ML VIAL PRES.FREE As Ordered ONE
== END ==
LOC: M PAIN 09:00
PROVIDERS: ATTEND Nurse Practitioner Family
DX: M51.16 Intervertebral disc disorders with radiculopathy, lumbar region (principal); G89.29 Other chronic pain; J45.20 Mild intermittent asthma, uncomplicated; F34.1 Dysthymic disorder; I10 Essential (primary) hypertension; E66.9 Obesity, unspecified; Z79.890 Hormone replacement therapy; Z79.899 Other long term (current) drug therapy

== ENCOUNTER → 2023-11-15 | Outpatient (CLI) | payer MEDICARE, MEDICAID ==
[2023-11-15 13:12] LABS: FREE T4 1.51 NG/DL (0.89-1.76); THYROID STIMULATING HORMONE 0.05 uIU/ML (0.55-4.78)
== END ==
LOC: M PLALAB 09:50
PROVIDERS: ATTEND Nurse Practitioner Family
DX: E89.0 Postprocedural hypothyroidism (principal)

== ENCOUNTER → 2023-11-22 | Outpatient (CLI) | payer MEDICARE, MEDICAID | LOC: M PAIN 09:30 | PROVIDERS: ATTEND Nurse Practitioner Family | DX: M51.16 Intervertebral disc disorders with radiculopathy, lumbar region (principal); G89.29 Other chronic pain; J45.20 Mild intermittent asthma, uncomplicated; F34.1 Dysthymic disorder; I10 Essential (primary) hypertension; K76.0 Fatty (change of) liver, not elsewhere classified; E66.9 Obesity, unspecified; Z68.43 Body mass index [BMI] 50.0-59.9, adult; Z79.890 Hormone replacement therapy; Z79.891 Long term (current) use of opiate analgesic; Z79.899 Other long term (current) drug therapy ==

== ENCOUNTER → 2023-12-17 | Outpatient (CLI) | payer MEDICARE, MEDICAID | LOC: M PLAIMG 06:36 | PROVIDERS: ATTEND Nurse Practitioner Family | DX: M51.16 Intervertebral disc disorders with radiculopathy, lumbar region (principal) ==

== ENCOUNTER → 2024-01-06 | Outpatient (CLI) | payer MEDICARE, MEDICAID | LOC: M PAIN 09:15 | PROVIDERS: ATTEND Nurse Practitioner Family | DX: M51.16 Intervertebral disc disorders with radiculopathy, lumbar region (principal); G89.29 Other chronic pain; Z79.890 Hormone replacement therapy; Z79.899 Other long term (current) drug therapy ==

== ENCOUNTER → 2024-01-21 | Outpatient (CLI) | payer MEDICARE, MEDICAID ==
[~2024-01-21] MED LIST changes: +LIDOCAINE 1% SDV 30ML VIAL As Ordered ONE; +dexAMETHasone 10MG/1ML VIAL PRES.FREE As Ordered ONE
== END ==
LOC: M PAIN 10:00
PROVIDERS: ATTEND Anesthesiology
DX: M51.16 Intervertebral disc disorders with radiculopathy, lumbar region (principal); G89.29 Other chronic pain; J45.20 Mild intermittent asthma, uncomplicated; F34.1 Dysthymic disorder; I10 Essential (primary) hypertension; E66.9 Obesity, unspecified; Z79.891 Long term (current) use of opiate analgesic; Z79.899 Other long term (current) drug therapy
CPT/HCPCS: 62323; J1100

== ENCOUNTER → 2024-02-27 | Outpatient (CLI) | payer MEDICARE, MEDICAID ==
[~2024-02-27] MED LIST changes: -LIDOCAINE 1% SDV 30ML VIAL As Ordered ONE; -dexAMETHasone 10MG/1ML VIAL PRES.FREE As Ordered ONE
== END ==
LOC: M PAIN 09:45
PROVIDERS: ATTEND Nurse Practitioner Family
DX: M51.16 Intervertebral disc disorders with radiculopathy, lumbar region (principal); G89.29 Other chronic pain; J45.20 Mild intermittent asthma, uncomplicated; F34.1 Dysthymic disorder; I10 Essential (primary) hypertension; E66.9 Obesity, unspecified; Z68.43 Body mass index [BMI] 50.0-59.9, adult; Z79.890 Hormone replacement therapy; Z79.891 Long term (current) use of opiate analgesic; Z79.899 Other long term (current) drug therapy

== ENCOUNTER → 2024-03-12 | Outpatient (CLI) | payer MEDICARE, MEDICAID ==
[2024-03-12 18:15] LABS: THYROID STIMULATING HORMONE 0.056 uIU/ML (0.55-4.78)
[2024-03-12 18:16] LABS: FREE T4 1.56 NG/DL (0.89-1.76)
== END ==
LOC: M LRY 08:12
PROVIDERS: ATTEND Nurse Practitioner Family
DX: E89.0 Postprocedural hypothyroidism (principal)

== ENCOUNTER → 2024-06-10 | Outpatient (CLI) | payer MEDICARE, MEDICAID ==
[2024-06-10 15:31] LABS: FREE T4 1.68 NG/DL (0.89-1.76)
[2024-06-10 15:32] LABS: THYROID STIMULATING HORMONE 0.02 uIU/ML (0.55-4.78)
== END ==
LOC: M WUC 08:20
PROVIDERS: ATTEND Nurse Practitioner Family
DX: E89.0 Postprocedural hypothyroidism (principal)

== ENCOUNTER → 2025-01-18 | Outpatient (REF) | payer MEDICARE, MEDICAID ==
[2025-01-18 18:28] LABS: FREE T4 1.44 NG/DL (0.89-1.76)
== END ==
LOC: M LRY 17:20
PROVIDERS: ATTEND Nurse Practitioner Family
DX: E89.0 Postprocedural hypothyroidism (principal)